=== PATIENT | female | born 1965 ===

== ENCOUNTER 2017-03-15 15:34 | Inpatient (IN) ==
[2017-03-15] MEDS ORDERED: SODIUM CHLORIDE 0.9% 1,000 ML IV STA (16:29)
--- NOTE | 2017-03-15 16:39 | Emergency Department Note ---
Trini Lima Gwan, am scribing for, and in the presence of, Ji Mcmillan MD 16:33 . Deyanira Lima James D, MD, personally performed the services described in this documentation, ascribed by Tim Feliz in my presence, and it is both accurate and complete [id number] . Arrival - Arrival Chief Complaint: Nausea/Vomiting/Diarrhea Stated Complaint: N/V/D ED Nursing Triage Note: Brought in by EMS c/o N/V/D-onset last night. Patient was transferred for [facility] ER for further evaluation of elevated creatinine and abnormal ABG's. Mode of Arrival: Stretcher Limitations: No Limitations Source: Patient, Old Records Reviewed, RN Notes Reviewed - History of Present Illness HPI Narrative: Patient is a 51 y/o female, with a hx of HTN and NIDDM, who presents to the ED via EMS from [facility] ER for further evaluation of elevated creatinine and abnormal ABG's. Patient presented to [facility] today due to N/V/D and upon further review, pt was promoted to report to ED for further evaluation. She said that her BM and vomit have been watery in consistency and that the onset of her sxs were yesterday afternoon. Patient stated that she has a PMHx of Chloecystectomy, and that she had Left Nephrectomy due to CA on 12/24/[address] Encinas. Transfer records report that pt's Creatinine was 5.0 in 12/22 and is 7.4 today. She denies any dysuria, blood in stool or any SHx of ETOH/smoking. Onset (ago): hour(s) Consistency: constant Severity: moderate Quality: aching Date of Last Menstrual Period: hysterectomy Allergies/Adverse Reactions: Allergies Allergy/AdvReac Type Severity Reaction Status Date / Time No Known Allergies Allergy Verified 11/21/16 15:38 Home Medications: Home Medications Medication Instructions Recorded Confirmed Type Aspirin [Ecotrin] 81 mg PO DAILY 11/23/16 03/15/17 History Chlorthalidone 25 mg PO QAM 11/23/16 03/15/17 History Hydroxychloroquine [Plaquenil] 400 mg PO DAILY 11/23/16 03/15/17 History Lisinopril 20 mg PO DAILY 11/23/16 03/15/17 History Metoprolol Succinate Xl [Toprol Xl] 50 mg PO BEDTIME 11/23/16 03/15/17 History Insulin Detemir [Levemir] 20 unit SUBCUT QAM 12/27/16 03/15/17 History Multivitamin [Multivitamins] 1 each PO DAILY 03/15/17 03/15/17 History Review of System - Review of System 12 point system: reviewed and no additional remarkable complaints except as stated - Review of System Constitutional: Absent: chills, fever Eyes: Absent: discharge, pain Head/Ears/Nose/Throat: Absent: earache Respiratory: Absent: cough Cardiovascular: Absent: chest pain, palpitations Gastrointestinal: Present: as per HPI, abdominal pain, nausea, vomiting, diarrhea Musculoskeletal: Absent: arm pain, back pain, lower back pain, leg pain, neck pain Skin: Absent: rash, lesions Neurological: Absent: headache, weakness Psychiatric: Absent: anxiety, depression Medical,Surgical,& Family Hx - Medical History Cardio: History of: Hypertension Endocrine: History of: Diabetes Mellitus (IDDM) Renal: History of: Renal Problems (TUMOR KIDNEY OR POSSIBLE CA) Comment Only: Renal (Kidney) Cancer (TUMORLEFT KIDNEY) Gastrointestinal: Comment Only: GI Problems (GALLSTONE) Musculoskeletal: History of: Musculoskeletal Problems (ARTHRITIS) Other: Comment Only: Miscellaneous Medical Problems (HAD TO WAIT ON DR FREY ORDERS) - Surgical History Thoracic Surgeries: Surgical HX of;: Nephrectomy (L PARTIAL) Abdominal Surgeries: Surgical HX of: Cholecystectomy Reproductive Surgeries: Surgical HX of;: Section (X2), Hysterectomy - Family History Family History: Reports;: Family Diabetes (SISTER PARENTS), Family Hypertension (PARENTS) - Social History Smoking Status: Never smoker Frequency of Alcohol Use: None Type of Drug Use: None Exam Physical Examination: GENERAL: This is a well-nourished, well-developed [place] female in no apparent distress. VITAL SIGNS: HEENT: Head is normocephalic and atraumatic. Pupils are equally round and reactive to light. Extraocular movement are intact. Oropharynx is benign with dry mucous membranes. NECK: Neck is soft and supple without tenderness. There are no masses. There is no lymphadenopathy. LUNGS: Lungs are clear to auscultation bilaterally. Chest rises symmetrically. There is no chest wall tenderness. CV: Heart is regular rate and rhythm without murmurs, rubs, or gallops. ABDOMEN: Abdomen is soft, non-tender to palpation. There are no abnormal masses palpated. There is no organomegaly. Bowel sounds are present and active. SKIN: Skin is warm and dry. No rash. EXTREMITIES: Patient has full range of motion without tenderness. There is no pedal edema. NEUROLOGIC: Awake, alert, and oriented x4. Cranial nerves II through XII are grossly intact. There are no motorsensory deficits. PSYCHIATRIC: Normal affect. Normal mood. Vital Signs: Vital Signs Temperature 97.5 F L 03/15/17 15:41 Pulse Rate 74 03/15/17 15:41 Respiratory Rate 18 03/15/17 15:41 Blood Pressure 154/93 03/15/17 15:41 O2 Sat by Pulse Oximetry 100 03/15/17 15:41 Course Course Narrative: Patient was given a liter of normal saline IV in the emergency department. - Consultations Consultation #1: Discussed with hospitalist. Patient will be admitted to their service. Time: 16:51 Results - Labs Lab Results: I have reviewed the patients labs Labs: Lab performed at [facility] reviewed by me: ABG: PH 7.28, PCO2 25, PO2 115, O2 sat 98.7% Chemistry: Sodium 139, potassium 4.8, chloride 107, CO2 16.4, BUN 76, creatinine 7.4, calcium 8.2, total protein 7.9, albumin 2.9, total bilirubin 0.6 , alk phos 203, SGOT 59, SGPT 45, glucose nonfasting 115 CBC: WBCs 4300, hemoglobin 9.6, hematocrit 28.5, platelet count 118,000 Disposition Clinical Impression: Nausea vomiting and diarrhea, Acute on chronic renal failure, Status post nephrectomy, Diabetes mellitus, Essential hypertension, Metabolic acidosis Case discussed with: patient Disposition: Still a Patient Condition: Stable
--- NOTE | 2017-03-15 16:49 | XRay Report ---
Exam: Chest 2 views Date: March 15, 2017 at 4:37 PM Comparison: Chest PA lateral August 13, 2008 Reason: Renal failure Findings: The cardiac silhouette is normal in size. No focal consolidation, pneumothorax or pleural effusion is identified. No acute osseous process is seen. Impression: No acute cardiopulmonary process is identified. PROCEDURE INTERPRETED AT [facility] DEPARTMENT OF RADIOLOGY Final Report Signed by: Dr. Ericka Youngblood
--- NOTE | 2017-03-15 16:52 | XRay Report ---
Referring Physician: Ji Mcmillan Exam: XR abdomen 2V Date: March 15, 2017 at 4:37 PM Reason: Generalized abdominal pain, nausea, vomiting, diarrhea Comparison: CT abdomen and pelvis November 15, 2016 Findings: There are surgical clips within the right upper quadrant, suggesting cholecystectomy. Surgical clips are also seen within the left abdomen and may be related to nephrectomy. There is no evidence of bowel obstruction or free air. There is degenerative change and mild scoliosis at the spine, and a remote fracture of the left lateral 10th rib. No acute osseous process is identified. Impression: No acute abdominal process is identified. PROCEDURE INTERPRETED AT [facility] DEPARTMENT OF RADIOLOGY Final Report Signed by: Dr. Ericka Younbglood
[2017-03-15 17:54] LABS: Osmolality,Calculated 304.1 MOS/KG (273-304); Potassium 4.5 MMOL/L (3.5-5.1)
--- NOTE | 2017-03-15 17:55 | Hospitalist History & Physical ---
Addendum entered and electronically signed by Gianfranco Montiel PA 03/15/17 18:29 : Preliminary lab work from [facility]: WBC 4.3 platelet 118 hemoglobin 9.6 hematocrit 28.5 calcium 8.2 creatinine 7.4 BUN 76 sodium 139 potassium 4.8 chloride 107 Original Note: <Gianfranco Montiel - Last Filed: 03/15/17 17:51> Assessment and Plan - Time spent with patient Time spent with patient: Greater than 30 minutes (1) Acute on chronic renal failure Status: Acute Assessment and plan: Creatinine in January was 5.0. Today creatinine is 7.0. Patient is status post left left nephrectomy [place] [address] Edward Veronica. She was seen by Dr. Mahad Montes in the hospital several months ago and has an appointment scheduled for April. Patient will be admitted to the CCU for monitoring and rehydration with normal saline. Current Visit: Yes (2) Essential hypertension Status: Acute Current Visit: Yes (3) Metabolic acidosis Status: Acute Assessment and plan: Records from [facility] shows pH 7.28 PCO2 25 HCO3 11.7. I am concerned the patient may go into diabetic ketoacidosis. Will monitor her in the CCU overnight. Current Visit: Yes (4) Nausea vomiting and diarrhea Status: Acute Current Visit: Yes (5) Status post nephrectomy Status: Acute Current Visit: Yes (6) Diabetes mellitus Status: Acute Assessment and plan: Serum glucose 108 Current Visit: Yes History of Present Illness Chief complaint: Nausea/vomiting/diarrhea History of present illness: Ms. Tello is a 51 year old [place] female with a past medical history significant for hypertension, diabetes, renal cell carcinoma with left total nephrectomy, cholecystitis with subsequent cholecystectomy who presents to the ED via EMS from [facility] for further evaluation of elevated creatinine and abnormal ABGs. The patient reports that she has been nauseous and vomiting incessantly since yesterday. She initially reported to the [facility] today for evaluation of nausea vomiting and diarrhea. She also reports that she has been having watery stool for the past 3 days. She denies knowledge of having any renal failure, however, she does admit to having an appointment with Dr. Montes, nephrology, in April. Further review of the patient's chart reveals a creatinine of 5 in January 2017. Today, her creatinine 7.0. On exam, the patient denies any pain and reports that the nausea vomiting has improved since receiving antiemetics from EMS. Patient does have a distinctive odor of ketones on her person which is suspicious for DKA. She patient will be admitted to the CCU hospital medicine service for further evaluation and treatment. The patient is a full code. Case has been discussed with Dr. Penny who will follow with an addendum. Home Medications Medication Instructions Recorded Confirmed Type Aspirin [Ecotrin] 81 mg PO DAILY 11/23/16 03/15/17 History Chlorthalidone 25 mg PO QAM 11/23/16 03/15/17 History Hydroxychloroquine [Plaquenil] 400 mg PO DAILY 11/23/16 03/15/17 History Lisinopril 20 mg PO DAILY 11/23/16 03/15/17 History Metoprolol Succinate Xl [Toprol Xl] 50 mg PO BEDTIME 11/23/16 03/15/17 History Insulin Detemir [Levemir] 20 unit SUBCUT QAM 12/27/16 03/15/17 History Multivitamin [Multivitamins] 1 each PO DAILY 03/15/17 03/15/17 History Allergies Allergy/AdvReac Type Severity Reaction Status Date / Time No Known Allergies Allergy Verified 11/21/16 15:38 Medical,Surgical,& Family Hx - Medical History Cardio: History of: Hypertension Endocrine: History of: Diabetes Mellitus (IDDM) Renal: History of: Renal Problems (TUMOR KIDNEY OR POSSIBLE CA) Comment Only: Renal (Kidney) Cancer (TUMORLEFT KIDNEY) Gastrointestinal: Comment Only: GI Problems (GALLSTONE) Musculoskeletal: History of: Musculoskeletal Problems (ARTHRITIS) Other: Comment Only: Miscellaneous Medical Problems (HAD TO WAIT ON DR FREY ORDERS) - Surgical History Thoracic Surgeries: Surgical HX of;: Nephrectomy (L PARTIAL) Abdominal Surgeries: Surgical HX of: Cholecystectomy Reproductive Surgeries: Surgical HX of;: Section (X2), Hysterectomy - Family History Family History: Reports;: Family Diabetes (SISTER PARENTS), Family Hypertension (PARENTS) - Social History Smoking Status: Former smoker Frequency of Alcohol Use: None Type of Drug Use: None Marital Status: Single Lives With:: Alone Functional capacity: independent ambulation - Constitutional Constitutional: Present: chills, headache(s), weakness - EENT Eyes: Absent: blurry vision, loss of vision Nose, mouth and throat: Absent: dysphagia, neck mass, sore throat - Cardiovascular Cardiovascular: Absent: chest pain at rest, dyspnea, edema, palpitations - Respiratory Respiratory: Absent: cough, dyspnea, wheezing - Gastrointestinal Gastrointestinal: Present: change in bowel habits, diarrhea, nausea, vomiting. Absent: abdominal pain - Genitourinary Genitourinary: Absent: difficulty urinating, dysuria, flank pain - Musculoskeletal Musculoskeletal: Absent: back pain, muscle cramps - Neurological Neurological: Absent: abnormal speech, dizziness, syncope - Psychiatric Psychiatric: Absent: anxiety, depression - Endocrine Endocrine: Present: cold intolerance. Absent: fatigue - Hematologic/Lymphatic Hematologic/Lymphatic: Absent: easy bleeding, easy bruising Exam - Constitutional Exam: General appearance:obese, no acute distress - Head Head exam: Present: normocephalic, atraumatic - Eye Eye exam: Present: EOMI. Absent: conjunctival injection, nystagmus Pupils: Present: SONIYA, normal accommodation - ENT ENT exam: Present: normal exam, normal external ear exam - Neck Neck exam: Present: normal inspection. Absent: lymphadenopathy, tenderness, thyromegaly - Respiratory Respiratory exam: Present: clear to auscultation bilaterally. Absent: rales, rhonchi, wheezes - Cardiovascular Cardiovascular exam: Present: regular rate and rhythm. Absent: carotid bruit, gallop, rubs - GI/Abdominal GI/Abdominal exam: Present: normal bowel sounds. Absent: ascites, distended, mass - Extremities Exam Extremities exam: Present: normal inspection, normal capillary refill. Absent: edema - Back Exam Back exam: Absent: CVA tenderness (L), CVA tenderness (R) - Neurological Exam Neurological exam: Present: alert, oriented X3 - Psychiatric Psychiatric exam: Present: normal affect, normal mood - Skin Skin exam: Present: normal color, warm, dry <White,Raegan R - Last Filed: 03/15/17 19:43> Assessment and Plan (1) Acute on chronic renal failure Status: Acute Assessment and plan: renal us, Consulted Dr. Montes, hydration with bicarb, UA pending, suarez Current Visit: Yes (2) IDDM (insulin dependent diabetes mellitus) Status: Acute Assessment and plan: cont lantus, ISC, ketones negative, hemoglobin A1c Current Visit: Yes (3) Status post nephrectomy Status: Acute Assessment and plan: left kidney removed due to renal cell carcinoma Current Visit: Yes (4) Essential hypertension Status: Acute Assessment and plan: hydralazine prn, coreg started, hold diuretics and lisinopril Current Visit: Yes (5) Metabolic acidosis Status: Acute Assessment and plan: cont IVF with bicarbonate. Serum ketones negative. Current Visit: Yes (6) Rheumatoid arthritis Status: Acute Assessment and plan: plaquenil cont for now Current Visit: Yes History of Present Illness History of present illness: Ms. Tello is a 51 year old female seen and examined. Slight smell of ketones, complains of some confusion at times. Has seen Dr. Montes in the past Medical,Surgical,& Family Hx - Medical History Musculoskeletal: History of: Musculoskeletal Problems (RA) Exam - Constitutional Vitals: Period Temp Pulse Resp BP Sys/Posada Pulse Ox Last 24 Hr 97.9 F 75-86 17-20 165-188/84-93 99-100 Results - Labs CBC & BMP: 03/15/17 17:29 Lab Results: I have reviewed the past 24 hour labs Labs: ABG pH 7.28, PCO2 25, PO2 115, bicarb 11. All labs from [place] calcium 8.2 creatinine 7.4 BUN 76 creatinine 7.4 sodium 139, potassium 4.8, AST 59, ALT 45, glucose 115, WBC 4.3, platelets 118, hemoglobin 9.6 - Diagnostic Findings Procedure: Chest x-ray: report reviewed by me (negative ), X-ray: report reviewed by me (abdomen xray negative )
[2017-03-15] MEDS ORDERED: ZALEPLON 5 MG CAPSULE PO PRN (18:14)
[2017-03-15] MEDS ORDERED: GLUCAGON 1 MG VIAL IM PRN (18:14)
[2017-03-15] MEDS ORDERED: DEXTROSE 50% 25 GM/50 ML VIAL IV PRN (18:14)
[2017-03-15] MEDS: SODIUM ACETATE 50 MEQ in SODIUM CHLORIDE 0.45% 1,000 ML IV SCH (19:33)
[2017-03-15 19:53] LABS: Thyroid Stimulating Hormone 1.87 uIU/ml (0.358-3.74)
[2017-03-15 19:54] LABS: B-Type Natriuretic Peptide 65 PG/ML (2-100)
[2017-03-15 20:24] LABS: Apearance,Urine CLEAR (Clear); Bilirubin,Urine Negative (Negative); Blood, Urine Negative (Negative); Glucose,Urine (UA) 50 mg/dL (Negative); Ketones,Urine Negative (Negative); Nitrite,Urine Negative (Negative); Protein,Urine 100 MG/DL; RBC,Urine 1 /HPF (0-4); Urine Color Straw (Yellow); Urine Specific Gravity 1.006 (1.001-1.035); Urine Urobilinogen < 2.0 EU/DL (0.2-1.0); WBC,Urine <1 /HPF (0-6)
[2017-03-15] MEDS: INSULIN LISPRO 100 UNIT/ML SUBCUT SCH (20:41)
[2017-03-15] MEDS: ENOXAPARIN 30 MG/0.3 ML SYRINGE SUBCUT SCH (20:48)
[2017-03-15] MEDS: hydrALAZINE 20 MG/1 ML VIAL IV PRN (20:50)
--- NOTE | 2017-03-15 22:43 | Ultrasound Report ---
Referring Physician: Raegan Penny Exam: US renal Bilateral Date: March 15, 2017 Reason: Hydronephrosis Comparison: Bilateral renal ultrasound November 18, 2016 Technique: Grayscale and color flow ultrasound images of the right kidney and left renal fossa were obtained. Ultrasound images were captured and stored. Findings: The right kidney measures 9.3 x 4.5 x 4.2 cm. No right hydronephrosis or suspicious right renal lesion is identified. The renal parenchyma echogenicity is unremarkable as visualized. The patient is status post left nephrectomy. No suspicious abnormality is identified at the left renal fossa. Impression: No acute renal process is identified. PROCEDURE INTERPRETED AT [facility] DEPARTMENT OF RADIOLOGY Final Report Signed by: Dr. Ericka Youngblood
[2017-03-16] MEDS: SODIUM ACETATE 50 MEQ in SODIUM CHLORIDE 0.45% 1,000 ML IV SCH (03:30)
[2017-03-16 05:31] LABS: Eosinophils # 0.4 10*3/uL (0.0-0.87); Eosinophils % 17.3 % (0.00-10.9); Immature Granulocytes % 0.4 %; Immature Granulocytes Absolute 0.01 #; Lymphocytes # 0.9 10*3/uL (1.4-4.0); Lymphocytes % 35.5 % (21.3-54.2); Mean Corpuscular HGB Conc 33.3 GM/DL (32-36); Mean Corpuscular Hemoglobin 31 PG (27-34); Mean Corpuscular Volume 93.8 FL (87-102); Mean Platelet Volume 10.3 FL (9.6-12.0); Monocytes # 0.3 10*3/uL (0.11-0.8); Monocytes % 12.5 % (1.7-12.7); Neutrophils # 0.9 10*3/uL (1.4-7.4); Neutrophils % 34.3 % (38.7-73.9); Platelet Count 80 T/CUMM (130-400); Red Blood Count 2.24 MC/CUMM (3.8-5.5); White Blood Count 2.5 T/CUMM (4-12)
[2017-03-16 06:03] LABS: Eosinophils 14 % (0-10); Hypochromasia 1+; Lymphocytes 30 % (20-55); Ovalocytes Slight; Platelet Estimate Decreased; Segmented Neutrophils 44 % (50-85); Total Cells Counted 100
[2017-03-16 06:09] LABS: Alanine Aminotransferase 41 U/L (13-56); Albumin 2.3 G/DL (3.4-5.0); Alkaline Phosphatase 168 U/L (45-117); Aspartate Amino Transferase 61 U/L (0-37); Bilirubin,Total < 0.39 MG/DL (0.2-1.0); Blood Urea Nitrogen 66 MG/DL (7-18); Calcium 7.6 MG/DL (8.5-10.1); Glucose 107 MG/DL (74-106); Sodium 143 MMOL/L (136-145); Total Protein 5.8 G/DL (6.4-8.3)
[2017-03-16] MEDS ORDERED: NOREPINEPHRINE 8 MG in SODIUM CHLORIDE 0.9% 242 ML IV SCH (06:30)
--- NOTE | 2017-03-16 07:52 | Hospitalist Progress Note ---
Assessment and Plan (1) Metabolic acidosis Status: Acute Assessment and plan: Continue bicarb drip. Increase bicarb 200 mEq/L. Continue same IV fluid rate of 125 cc/h. Nephrology consult pending. Current Visit: Yes (2) CKD (chronic kidney disease) stage 3, GFR 30-59 ml/min Status: Chronic Current Visit: No (3) Renal cell carcinoma of left kidney Status: Resolved Assessment and plan: Status post nephrectomy of the left kidney in December 2016 Current Visit: No (4) Nausea vomiting and diarrhea Status: Resolved Current Visit: Yes (5) Acute on chronic renal failure Status: Acute Assessment and plan: Nontraumatic acute kidney injury with chronic kidney disease stage III in a patient with a solitary kidney after left nephrectomy 3 months ago. Consult nephrology. 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 Current Visit: Yes (9) IDDM (insulin dependent diabetes mellitus) Status: Chronic Current Visit: Yes Hospitalist: Subjective Interval history: Patient seen and examined. History and physical reviewed. Nausea, vomiting and diarrhea have subsided. Stool studies are negative. Renal function remains compromised and elevated from baseline 2 months ago. The patient has one kidney as the left kidney was removed secondary to cancer in December 2016. She denies any complaints and is making good amounts of urine that is clear yellow in color. Vital signs are stable and she will be transferred to the floor. Nephrology consult pending. Exam - Constitutional Vitals: Period Temp Pulse Resp BP Sys/Posada Pulse Ox Last 24 Hr 97.4 F-99.5 F 71-90 13-26 129-188/69-106 98-100 Exam: Constitutional System: No distress. No tremulousness. Head: Normocephalic, atraumatic. Ears, Nose and Throat System: No pain or tenderness. No epistaxis or discharge Eyes System: Pupils equal, round, and reactive. Extraocular muscles intact. Neck: Supple, without adenopathy, No jugular venous distention. Respiratory System: Chest clear to auscultation. Cardiovascular System: Heart with regular rate and rhythm. No murmur. GI System: Abdomen soft, nontender. Normo active bowel sounds present. Musculoskeletal System: limbs with no pedal edema. Full distal pulses. Neurological System: No discernable sensory deficit. No aphasia Psychiatric System: Conversation is rational Results - Labs CBC & BMP: 03/16/17 04:48 03/16/17 04:48 Lab Results: I have reviewed the past 24 hour labs - Diagnostic Findings Procedure: Chest x-ray: report reviewed by me, KUB x-ray: report reviewed by me
[2017-03-16] MEDS: INSULIN LISPRO 100 UNIT/ML SUBCUT SCH ×4 (07:56→21:01)
[2017-03-16] MEDS: ACETAMINOPHEN 325 MG TABLET PO PRN (08:00)
[2017-03-16] MEDS: INSULIN GLARGINE 100 UNIT/ML SUBCUT SCH (09:30)
[2017-03-16] MEDS: HYDROXYCHLOROQUINE 200 MG TABLET PO SCH (09:32)
[2017-03-16] MEDS: PANTOPRAZOLE 40 MG TABLET PO SCH (09:32)
[2017-03-16] MEDS: MULTIVITAMIN (CENTRUM) TABLET PO SCH (09:33)
[2017-03-16] MEDS: ASPIRIN EC 81 MG TABLET PO SCH (09:33)
[2017-03-16] MEDS: SODIUM ACETATE 100 MEQ in SODIUM CHLORIDE 0.45% 1,000 ML IV SCH ×2 (09:36→21:04)
--- NOTE | 2017-03-16 09:58 | Physician Query Form ---
CLICK EDIT DOCUMENT TO SELECT QUERY ANSWER --> OK --> SIGN Laila Thomas RN Clinical Nutrition Counselor W) [phone] (f) [phone] [email or web address] PROVIDERS: Make your selection(s) from the choices in EACH section by typing an "x" and enter comments in the comment section. Please use your independent medical judgment in providing your response. This request does not imply that any particular answer is desired or expected. CLINICAL INDICATORS: (Providers should not edit this section) Based on lab results of WBC=2.5, RBC=2.24, PLT=80. Based on the above, could you clarify the appropriate diagnosis, if significant , that supports the above abnormalities and additional evaluation, monitoring, and/or treatment rendered: (X ) Pt. has pancytopenia ( ) Pt. does not have pancytopenia ( ) Other, please specify: ( ) Clinically unable to determine COMMENTS: Use of terms such as suspected, likely, or probable (associated with a specific diagnosis that is being evaluated, monitored, or treated as if it exists) are acceptable and can be restated in the discharge summary if not ruled out. MTDD
[2017-03-16] MEDS ORDERED: SODIUM CHLORIDE 0.9% 250 ML IV PRN (10:28)
--- NOTE | 2017-03-16 14:22 | Nephrology Consult Note ---
History of Present Illness Chief complaint: Acute on Chronic Kidney Disease History of present illness: Ms. Tello is a 51 year old female status post left nephrectomy for renal cell carcinoma approximately 2 months ago. Creatinine at that time was around 5 and she came in after 48 hours of nausea vomiting diarrhea with a creatinine of 7 and a mild metabolic acidosis with a measured bicarb of 14. She says that she is 8 nothing unusual and that family members have not been sick. Her chest is clear and her heart without rub or gallop no peripheral edema is noted. She is receiving IV fluids with sodium acetate to correct her acidosis and is receiving 2 units packed red cells today because of a hematocrit of 21. The anemia is likely due to the anemia of chronic renal impairment. Home Medications Medication Instructions Recorded Confirmed Type Aspirin [Ecotrin] 81 mg PO DAILY 11/23/16 03/15/17 History Chlorthalidone 25 mg PO QAM 11/23/16 03/15/17 History Hydroxychloroquine [Plaquenil] 400 mg PO DAILY 11/23/16 03/15/17 History Lisinopril 20 mg PO DAILY 11/23/16 03/15/17 History Metoprolol Succinate Xl [Toprol Xl] 50 mg PO BEDTIME 11/23/16 03/15/17 History Insulin Detemir [Levemir] 20 unit SUBCUT QA 12/27/16 03/15/17 History Multivitamin [Multivitamins] 1 each PO DAILY 03/15/17 03/15/17 History Allergies Allergy/AdvReac Type Severity Reaction Status Date / Time No Known Allergies Allergy Verified 11/21/16 15:38 Medical,Surgical,& Family Hx - Medical History Cardio: History of: Hypertension Endocrine: History of: Diabetes Mellitus (IDDM) Renal: History of: Renal Problems (TUMOR KIDNEY OR POSSIBLE CA) Comment Only: Renal (Kidney) Cancer (TUMORLEFT KIDNEY) Gastrointestinal: Comment Only: GI Problems (GALLSTONE) Musculoskeletal: History of: Musculoskeletal Problems (RA) Other: Comment Only: Miscellaneous Medical Problems (HAD TO WAIT ON DR FREY ORDERS) - Surgical History Thoracic Surgeries: Surgical HX of;: Nephrectomy (L PARTIAL) Abdominal Surgeries: Surgical HX of: Cholecystectomy Reproductive Surgeries: Surgical HX of;: Section (X2), Hysterectomy - Family History Family History: Reports;: Family Diabetes (SISTER PARENTS), Family Hypertension (PARENTS) - Social History Smoking Status: Former smoker Frequency of Alcohol Use: None Type of Drug Use: None Review of Systems 12 point system: reviewed and no additional remarkable complaints except as stated Exam - Vital Signs Vital signs: Period Temp Pulse Resp BP Sys/Posada Pulse Ox Last 24 Hr 96.4 F-99.5 F 71-90 13-26 129-188/69-106 96-100 - General Appearance General appearance: well-developed, well-nourished, appears started age EENT: ATNC Neck: no JVD, no thyromegaly, no carotid bruit, supple Respiratory: no kyphosis, no scoliosis Cardiology: no murmurs, no rub, no gallops, no edema, regular rate, regular rhythm, normal S1, normal S2 Gastrointestinal: normoactive bowel sounds, no tenderness, no guarding, no organomegaly Integumentary: no rash, warm and dry Neurologic: no focal deficit, no asterixis, alert and oriented x3, reflexes 2+ and symmetric, gait normal, strength 5/5 Musculoskeletal: no deformities, no erythema, no cyanosis, no clubbing Psychiatric: mood/affect appropriate, cooperative Results - Labs CBC & BMP: 03/16/17 04:48 03/16/17 04:48 Assessment and Plan - Time spent with patient Time spent with patient: Greater than 30 minutes (1) Acute on chronic renal failure Status: Acute Assessment and plan: Fluids as you're doing. Correct acidosis Current Visit: Yes Qualifiers: Chronic kidney disease stage: stage 3 (moderate) (2) Status post nephrectomy Status: Chronic Current Visit: Yes (3) Metabolic acidosis Status: Acute Current Visit: Yes (4) Anemia Status: Acute Assessment and plan: due to ckd Current Visit: Yes Specialty Discharge - Follow Up or Referrals - Speciality Discharge Instructions Nephrology Instructions: Follow renal function as she is rehydrated and transfused. She should follow back down to baseline which is about 5-1/2.
[2017-03-16 14:48] LABS: % Iron Saturation 50.7 % (18-50)
--- NOTE | 2017-03-16 16:08 | Sleep Medicine Consult ---
Assessment and Plan (1) Unspecified sleep apnea Status: Acute Assessment and plan: This patient does have symptoms of snoring and significant comorbidities that could be associated with untreated sleep apnea. She had a negative evaluation in 2013 but has gained weight. We will see if we can start with home sleep apnea testing tonight. If she is discharged before this can be done, I can follow-up with her in the [facility] sleep clinic. Current Visit: Yes (2) Diabetes mellitus Status: Chronic Assessment and plan: The prevalence rate for obstructive sleep apnea in patients with type 2 diabetes can be as high as 86%. Those patients with moderate to severe obstructive sleep apnea are at a greater risk for diabetic nephropathy and neuropathy. Compliance with CPAP therapy for these patients can lead to improvement in glycemic control and improvement in insulin sensitivity. Current Visit: Yes Qualifiers: Diabetes mellitus type: type 2 Diabetes mellitus complication detail: with chronic kidney disease Diabetes mellitus residential insulin use: with residential use Chronic kidney disease stage: stage 3 (moderate) (3) Essential hypertension Status: Chronic Assessment and plan: The prevalence rate for obstructive sleep apnea patients with hypertension is 35 %. That rate can be as high as 80% in patients who require 4 or more medications for blood pressure control. Current Visit: Yes History of Present Illness Chief complaint: sleep apnea History of present illness: Ms. Tello is a 51 year old female known to me from previous sleep evaluation. She had sleep study done in February 2014 and did have some REM related sleep apnea but had an overall normal apnea-hypopnea index. She did have an Sanford sleepiness score 15 at that time and subsequent to that has been found to have renal cell carcinoma and had nephrectomy. She is admitted now with metabolic acidosis and chronic kidney disease with nausea and vomiting. Sleep medicine was consulted for reevaluation. She has had some symptoms of fatigue. She does continue to snore. Her BMI at the time of her evaluation was 37.9 in February 2016 and it is now up to 40. Home Medications Medication Instructions Recorded Confirmed Type Aspirin [Ecotrin] 81 mg PO DAILY 11/23/16 03/15/17 History Chlorthalidone 25 mg PO QAM 11/23/16 03/15/17 History Hydroxychloroquine [Plaquenil] 400 mg PO DAILY 11/23/16 03/15/17 History Lisinopril 20 mg PO DAILY 01/18/17 05/10/17 History Metoprolol Succinate Xl [Toprol Xl] 50 mg PO BEDTIME 11/23/16 03/15/17 History Insulin Detemir [Levemir] 20 unit SUBCUT QAM 12/27/16 03/15/17 History Multivitamin [Multivitamins] 1 each PO DAILY 03/15/17 03/15/17 History Allergies Allergy/AdvReac Type Severity Reaction Status Date / Time No Known Allergies Allergy Verified 11/21/16 15:38 Review of systems: Otherwise unremarkable from sleep standpoint. Exam (Pulmonay) H&P - Constitutional Vitals: Period Temp Pulse Resp BP Sys/Posada Pulse Ox Last 24 Hr 96.2 F-99.5 F 71-90 13-26 129-190/69-106 96-100 Exam: She is alert and responsive in no acute distress. Pupils equal round reactive to light and accommodation. Extraocular movements intact. Oropharynx with a class III Mallampati exam. Neck is supple without adenopathy or thyromegaly. No supraclavicular adenopathy is noted. Chest with symmetrical breath sounds without focal wheeze, rhonchi, or rales. Cardiac exam reveals a regular rhythm without murmur or gallop. Abdomen soft nontender without palpable hepatosplenomegaly or mass. Extremities are without clubbing, cyanosis, or edema. Neurologically, she is grossly intact. She moves all extremities with good strength. Medical,Surgical,& Family Hx - Medical History Cardio: History of: Hypertension Endocrine: History of: Diabetes Mellitus (IDDM) Renal: History of: Renal Problems (TUMOR KIDNEY OR POSSIBLE CA) Comment Only: Renal (Kidney) Cancer (TUMORLEFT KIDNEY) Gastrointestinal: Comment Only: GI Problems (GALLSTONE) Musculoskeletal: History of: Musculoskeletal Problems (RA) Other: Comment Only: Miscellaneous Medical Problems (HAD TO WAIT ON DR FREY ORDERS) - Surgical History Thoracic Surgeries: Surgical HX of;: Nephrectomy (L PARTIAL) Abdominal Surgeries: Surgical HX of: Cholecystectomy Reproductive Surgeries: Surgical HX of;: Section (X2), Hysterectomy - Family History Family History: Reports;: Family Diabetes (SISTER PARENTS), Family Hypertension (PARENTS) - Social History Smoking Status: Former smoker Frequency of Alcohol Use: None Type of Drug Use: None Results - Labs CBC & BMP: 03/16/17 04:48 05/11/17 04:48 Lab Results: I have reviewed the past 24 hour labs
[2017-03-16] MEDS: hydrALAZINE 20 MG/1 ML VIAL IV PRN (16:28)
[2017-03-16] MEDS: ENOXAPARIN 30 MG/0.3 ML SYRINGE SUBCUT SCH (21:03)
[2017-03-17] MEDS: ACETAMINOPHEN 325 MG TABLET PO PRN (00:59)
[2017-03-17 05:13] LABS: Basophils % 0.4 % (0.0-0.8); Eosinophils # 0.2 10*3/uL (0.0-0.87); Eosinophils % 4.2 % (0.00-10.9); Hematocrit 26.8 VOL% (35.7-47.0); Hemoglobin 9.3 GM/DL (12.0-16.0); Immature Granulocytes % 0.4 %; Immature Granulocytes Absolute 0.02 #; Lymphocytes # 1.2 10*3/uL (1.4-4.0); Lymphocytes % 21.7 % (21.3-54.2); Mean Corpuscular HGB Conc 34.7 GM/DL (32-36); Mean Corpuscular Hemoglobin 31 PG (27-34); Mean Corpuscular Volume 89.6 FL (87-102); Mean Platelet Volume 10.2 FL (9.6-12.0); Monocytes # 0.6 10*3/uL (0.11-0.8); Monocytes % 10.5 % (1.7-12.7); Neutrophils # 3.4 10*3/uL (1.4-7.4); Neutrophils % 62.8 % (38.7-73.9); Platelet Count 75 T/CUMM (130-400); Red Blood Count 2.99 MC/CUMM (3.8-5.5); Red Cell Distribution Width 14.9 % (9.3-17.3); White Blood Count 5.5 T/CUMM (4-12)
[2017-03-17 05:42] LABS: Band Neutrophils 1 % (0-10); Eosinophils 3 % (0-10); Lymphocytes 24 % (20-55); Segmented Neutrophils 68 % (50-85); Total Cells Counted 100
[2017-03-17 05:43] LABS: Hypochromasia Slight; Platelet Estimate Decreased
[2017-03-17 05:47] LABS: Albumin 2.1 G/DL (3.4-5.0); Bilirubin,Total 0.5 MG/DL (0.2-1.0); Calcium 7.4 MG/DL (8.5-10.1); Potassium 3.9 MMOL/L (3.5-5.1); Total Protein 5.5 G/DL (6.4-8.3)
[2017-03-17] MEDS: INSULIN LISPRO 100 UNIT/ML SUBCUT SCH ×4 (07:30→20:42)
[2017-03-17] MEDS: INSULIN GLARGINE 100 UNIT/ML SUBCUT SCH (08:02)
[2017-03-17] MEDS: SODIUM ACETATE 100 MEQ in SODIUM CHLORIDE 0.45% 1,000 ML IV SCH ×2 (11:02→17:20)
[2017-03-17] MEDS: HYDROXYCHLOROQUINE 200 MG TABLET PO SCH (11:17)
[2017-03-17] MEDS: MULTIVITAMIN (CENTRUM) TABLET PO SCH (11:17)
[2017-03-17] MEDS: PANTOPRAZOLE 40 MG TABLET PO SCH (11:17)
[2017-03-17] MEDS: ASPIRIN EC 81 MG TABLET PO SCH (11:17)
--- NOTE | 2017-03-17 12:15 | Sleep Medicine Progress Note ---
Assessment and Plan (1) Unspecified sleep apnea Status: Acute Assessment and plan: We will set her up for outpatient sleep study after discharge at [facility] sleep center with follow-up in the sleep clinic there. Thank you for this consult. Current Visit: Yes (2) Diabetes mellitus Status: Chronic Current Visit: Yes Qualifiers: Diabetes mellitus type: type 2 Diabetes mellitus complication detail: with chronic kidney disease Diabetes mellitus watermaster insulin use: with intermediate use Chronic kidney disease stage: stage 3 (moderate) (3) Essential hypertension Status: Chronic Current Visit: Yes Sleep Medicine Subjective Interval history: Patient doing well but complains of continuous headache. She rested well last night. We were unable to do HST on her. She resides in the [facility] area and we will set her up for outpatient sleep evaluation at [facility]. Exam (Progress Note) - Constitutional Vitals: Period Temp Pulse Resp BP Sys/Posada Pulse Ox Last 24 Hr 96.2 F-99.7 F 77-94 16-84 148-194/68-89 96-98 Exam: She is alert and responsive in no distress. Chest with good air movement and no focal wheeze or rhonchi. Cardiac exam reveals a regular rhythm without murmur or gallop. Abdomen soft nontender extremities without edema. Neurologically, she is grossly intact. Results - Labs CBC & BMP: 03/17/17 04:30 03/17/17 04:30 Lab Results: I have reviewed the past 24 hour labs
--- NOTE | 2017-03-17 12:28 | CT Report ---
CT head/brain wo con Indication: Headache Comparison: None Technique: Multiple axial tomographic images of the brain were obtained without the use of intravenous contrast. Findings: Midline structures are nondisplaced. There is no acute intracranial hemorrhage or evidence of hydrocephalus. Mild mucosal thickening within the paranasal sinuses. Mastoid air cells are clear. IMPRESSION: No acute intracranial abnormality demonstrated. The CT exam was performed using one or more of the following dose reduction techniques: Automated exposure control, adjustment of the mA and/or kV according to patient size, or use of iterative reconstruction technique. PROCEDURE INTERPRETED AT [facility] Final Report Signed by: Dr Nacho Crenshaw
--- NOTE | 2017-03-17 14:26 | Hospitalist Progress Note ---
Hospitalist: Subjective Interval history: Tolerating oral intake. She received 2 units of packed red blood cells. Patient reports a headache since December since her surgery. She does report diarrhea and stool studies are negative. She has had a cholecystectomy in the past. Patient denies any lightheadedness or dizziness, chest pain or palpitations. No shortness of breath. No fever. Exam - Constitutional Vitals: Period Temp Pulse Resp BP Sys/Posada Pulse Ox Last 24 Hr 96.2 F-99.7 F 79-94 16-84 148-194/68-89 96-98 Exam: General : awake and alert and oriented 3 sitting in the chair in no acute distress. HEENT : anicteric sclera, pale conjunctivae, moist mucous membranes. Neck: supple, full range of motion, no lymphadenopathy or thyromegaly appreciated. Cardiovascular: Regular rate and rhythm, normal S1-S2 no obvious murmurs rubs or gallops. Lungs: Clear to auscultation bilaterally with good aeration nonlabored breathing noted. Abdomen: Soft, nontender, nondistended, positive bowel sounds. Obese abdomen so difficult to assess for hepatosplenomegaly or masses Extremity: Warm and well-perfused no clubbing cyanosis or edema. Results - Labs CBC & BMP: 03/17/17 04:30 03/17/17 04:30 - Impressions (1) Acute renal failure on CKD (chronic kidney disease) stage 3, GFR 30-59 ml/ min with Metabolic acidosis Status: Acute Assessment and plan: - Continue bicarb drip. Nephrology following. Serial RFP. - Nephrotoxic medications being held at this time secondary to acute on chronic kidney disease with acute kidney injury. Current Visit: Yes (2) Renal cell carcinoma of left kidney after left nephrectomy 3 months ago Status: Resolved Assessment and plan: - Status post left nephrectomy in December 2016 Current Visit: No (3) Nausea vomiting and diarrhea due to acute gastroenteritis Status: acute Current Visit: Yes - nausea and vomiting improved. Diarrhea persists. Add questran given history of CCY (4) Diabetes mellitus Status: Chronic Current Visit: Yes Qualifiers: Diabetes mellitus type: type 2 Diabetes mellitus complication detail: with chronic kidney disease Diabetes mellitus assisted insulin use: with assisted use Chronic kidney disease stage: stage 3 (moderate) - Cont accuchecks ac,hs. I.S.S. Check HgbA1c. (5) Essential hypertension Status: Chronic Assessment and plan: Current Visit: Yes (6) progressive Anemia of chronic disease: Likely secondary to chronic kidney disease and in a patient with pancytopenia - FOBT pending and s/p 2U PRBCs 7. Hgb now 9. (7) Acute gastroenteritis: Pt with nausea and diarrhea and headache. may be related to Plaquenil. Will hold for now. 8) Headache- neck tender to touch. OT to eval and treat. Tylenol for now. Check CT head. Hold Plaquenil as well. DVT prophylaxis- SCDs. Further plans to follow as more info is available.
[2017-03-17] MEDS: ONDANSETRON 4 MG/2 ML VIAL IV PRN ×2 (17:17→23:27)
[2017-03-17] MEDS: ENOXAPARIN 30 MG/0.3 ML SYRINGE SUBCUT SCH (20:42)
[2017-03-17] MEDS: CHOLESTYRAMINE/ASPARTAME 4 GM PACK PO SCH (20:42)
[2017-03-18] MEDS: SODIUM ACETATE 100 MEQ in SODIUM CHLORIDE 0.45% 1,000 ML IV SCH ×3 (00:52→17:13)
[2017-03-18 05:26] LABS: Basophils % 0.4 % (0.0-0.8); Eosinophils # 0.4 10*3/uL (0.0-0.87); Eosinophils % 9.3 % (0.00-10.9); Hematocrit 26.6 VOL% (35.7-47.0); Hemoglobin 9.4 GM/DL (12.0-16.0); Immature Granulocytes % 0.4 %; Immature Granulocytes Absolute 0.02 #; Lymphocytes # 1.9 10*3/uL (1.4-4.0); Lymphocytes % 40.9 % (21.3-54.2); Mean Corpuscular HGB Conc 35.3 GM/DL (32-36); Mean Corpuscular Hemoglobin 31 PG (27-34); Mean Corpuscular Volume 87.8 FL (87-102); Mean Platelet Volume 10.1 FL (9.6-12.0); Monocytes # 0.4 10*3/uL (0.11-0.8); Monocytes % 8.2 % (1.7-12.7); Neutrophils # 1.9 10*3/uL (1.4-7.4); Neutrophils % 40.8 % (38.7-73.9); Platelet Count 75 T/CUMM (130-400); Red Blood Count 3.03 MC/CUMM (3.8-5.5); Red Cell Distribution Width 14.9 % (9.3-17.3); White Blood Count 4.7 T/CUMM (4-12)
[2017-03-18 05:51] LABS: Albumin 2.2 G/DL (3.4-5.0); Bilirubin,Total 1.2 MG/DL (0.2-1.0); Calcium 7.4 MG/DL (8.5-10.1); Osmolality,Calculated 294.1 MOS/KG (273-304); Potassium 3.9 MMOL/L (3.5-5.1); Total Protein 5.6 G/DL (6.4-8.3)
[2017-03-18] MEDS: ACETAMINOPHEN 325 MG TABLET PO PRN ×2 (05:57→17:13)
[2017-03-18 08:04] LABS: Hypochromasia 1+
[2017-03-18] MEDS: INSULIN LISPRO 100 UNIT/ML SUBCUT SCH ×4 (08:40→21:18)
[2017-03-18] MEDS: hydrALAZINE 20 MG/1 ML VIAL IV PRN (09:04)
[2017-03-18] MEDS: MULTIVITAMIN (CENTRUM) TABLET PO SCH (09:04)
[2017-03-18] MEDS: PANTOPRAZOLE 40 MG TABLET PO SCH (09:04)
[2017-03-18] MEDS: ASPIRIN EC 81 MG TABLET PO SCH (09:04)
[2017-03-18] MEDS: INSULIN GLARGINE 100 UNIT/ML SUBCUT SCH (09:05)
[2017-03-18] MEDS: CHOLESTYRAMINE/ASPARTAME 4 GM PACK PO SCH ×2 (09:05→21:29)
--- NOTE | 2017-03-18 10:25 | Hospitalist Progress Note ---
Hospitalist: Subjective Interval history: Pt had elevated BP this am. No fever. No cp or SOB. No nausea or vomiting. diarrhea improving. Exam - Constitutional Vitals: Period Temp Pulse Resp BP Sys/Posada Pulse Ox Last 24 Hr 97.1 F-99.3 F 53-77 16-18 153-201/82-87 96-98 Exam: General : awake and alert and oriented 3 sitting in the chair in no acute distress. HEENT : anicteric sclera, pale conjunctivae, moist mucous membranes. Neck: No JVD Cardiovascular: Regular rate and rhythm, normal S1-S2 no obvious murmurs rubs or gallops. Lungs: Clear to auscultation bilaterally with good aeration nonlabored breathing noted. Abdomen: Soft, nontender, nondistended, positive bowel sounds. Obese abdomen so difficult to assess for hepatosplenomegaly or masses Extremity: Warm and well-perfused no clubbing cyanosis or edema. Results - Labs CBC & BMP: 03/18/17 04:41 03/18/17 04:41 - Impressions (1) Acute renal failure on CKD (chronic kidney disease) stage 3, GFR 30-59 ml/ min with Metabolic acidosis-improving (7 to 5.8) Status: Acute Assessment and plan: - Continue bicarb drip. Nephrology following. Serial RFP. - Nephrotoxic medications being held at this time secondary to acute on chronic kidney disease with acute kidney injury. Current Visit: Yes (2) Renal cell carcinoma of left kidney after left nephrectomy 3 months ago Status: Resolved Assessment and plan: - Status post left nephrectomy in December 2016 Current Visit: No (3) Nausea vomiting and diarrhea due to acute gastroenteritis Status: acute Current Visit: Yes - nausea and vomiting improved. Diarrhea improving. Cont questran given history of CCY - Stool culture, FOBT, C diff were negative (4) Diabetes mellitus controlled HgbA1c 5.9 Status: Chronic Current Visit: Yes Qualifiers: Diabetes mellitus type: type 2 Diabetes mellitus complication detail: with chronic kidney disease Diabetes mellitus shelter insulin use: with recording studio internship use Chronic kidney disease stage: stage 3 (moderate) - Cont accuchecks ac,hs. I.S.S. (5) Essential hypertension- uncontrolled/ Accelerated Status: Chronic Assessment and plan: Current Visit: Yes - start Nifedipine. Hydralazine is ordered prn IV. D/W nurse. (6) progressive Anemia of chronic disease: Likely secondary to chronic kidney disease and in a patient with pancytopenia - FOBT negative and s/p 2U PRBCs for Hgb7. Hgb now 9. (7) Acute gastroenteritis: Pt with nausea and diarrhea and headache. may be related to Plaquenil. Will hold for now. 8) Headache- much improved. Cont OT. Tylenol as needed. CT head negative for acute pathology. Hold Plaquenil as well and get sleep study outpt DVT prophylaxis- Lovenox renally dosed. I will be away several days. One of my associates will follow in my absence.
[2017-03-18] MEDS: ONDANSETRON 4 MG/2 ML VIAL IV PRN (14:37)
--- NOTE | 2017-03-18 17:36 | Nephrology Progress Note ---
Nephrology - PN: Subj Interval history: Patient is sitting up in chair resting comfortably. She states she does have a headache. Blood pressure has been elevated today. No shortness of breath or chest pain. Exam (PN)-Nephrology - Vital Signs Vital signs: Period Temp Pulse Resp BP Sys/Posada Pulse Ox Last 24 Hr 97.1 F-99.1 F 66-77 16-18 153-201/82-87 97-98 - General Appearance General appearance: well-developed, well-nourished EENT: ATNC Neck: supple Respiratory: clear Cardiology: no edema, regular rate, regular rhythm Gastrointestinal: normoactive bowel sounds, no tenderness, no guarding Neurologic: alert and oriented x3 Musculoskeletal: no clubbing Psychiatric: mood/affect appropriate - Lab 03/18/17 04:41 03/18/17 04:41 Most recent lab results Calcium 7.4 MG/DL (8.5-10.1) L 03/18/17 04:41 Magnesium 2.0 MG/DL (1.8-2.4) 03/15/17 19:08 Assessment and Plan (1) CKD (chronic kidney disease) stage 3, GFR 30-59 ml/min Status: Chronic Current Visit: No (2) Status post nephrectomy Status: Chronic Current Visit: Yes (3) Diabetes mellitus Status: Chronic Current Visit: Yes Qualifiers: Diabetes mellitus type: type 2 Diabetes mellitus complication detail: with chronic kidney disease Diabetes mellitus penitentiary insulin use: with watermaster use Chronic kidney disease stage: stage 3 (moderate) (4) Essential hypertension Status: Chronic Current Visit: Yes
[2017-03-18] MEDS: ENOXAPARIN 30 MG/0.3 ML SYRINGE SUBCUT SCH (21:30)
[2017-03-18] MEDS: CARVEDILOL 3.125 MG TABLET PO SCH (21:30)
[2017-03-19] MEDS: SODIUM ACETATE 100 MEQ in SODIUM CHLORIDE 0.45% 1,000 ML IV SCH (01:17)
[2017-03-19] MEDS: INSULIN LISPRO 100 UNIT/ML SUBCUT SCH ×4 (07:54→21:33)
[2017-03-19] MEDS: CHOLESTYRAMINE/ASPARTAME 4 GM PACK PO SCH (09:16)
[2017-03-19] MEDS: MULTIVITAMIN (CENTRUM) TABLET PO SCH (09:17)
[2017-03-19] MEDS: PANTOPRAZOLE 40 MG TABLET PO SCH (09:17)
[2017-03-19] MEDS: CARVEDILOL 3.125 MG TABLET PO SCH (09:17)
[2017-03-19] MEDS: ASPIRIN EC 81 MG TABLET PO SCH (09:17)
[2017-03-19] MEDS: ONDANSETRON 4 MG/2 ML VIAL IV PRN ×2 (09:21→16:43)
[2017-03-19] MEDS: INSULIN GLARGINE 100 UNIT/ML SUBCUT SCH (10:22)
--- NOTE | 2017-03-19 12:38 | Hospitalist Progress Note ---
Assessment and Plan (1) Acute on chronic renal failure Status: Acute Assessment and plan: The patient has stage III or IV chronic kidney disease with superimposed acute kidney injury likely on account of dehydration. The patient's blood pressures improving after medications were adjusted. I am going to reduce the Procardia to 30 mg once a day and continue Coreg. Will recheck blood pressure through the night and basic metabolic profile in the morning. Current Visit: Yes Qualifiers: Chronic kidney disease stage: stage 3 (moderate) (2) Status post nephrectomy Status: Chronic Current Visit: Yes (3) Diabetes mellitus Status: Chronic Current Visit: Yes Qualifiers: Diabetes mellitus type: type 2 Diabetes mellitus complication detail: with chronic kidney disease Diabetes mellitus senior care insulin use: with senior care use Chronic kidney disease stage: stage 3 (moderate) Hospitalist: Subjective Interval history: Mrs. Tello is up to toilet today. The patient has nausea with vomiting. She has some symptoms consistent with uremia. The patient has noted increased swelling of lower extremities. Exam - Constitutional Vitals: Period Temp Pulse Resp BP Sys/Posada Pulse Ox Last 24 Hr 97.8 F-99.2 F 71-85 16-21 90-165/51-78 95-98 Exam: Constitutional System: Mild distress on account of vomiting. No tremulousness. Head: Normocephalic, atraumatic. Ears, Nose and Throat System: No evidence of Otitis or Mastoiditis. No epistaxis or discharge Eyes System: Pupils equal, round, and reactive. Extraocular muscles intact. Neck: Supple, without adenopathy, No jugular venous distention. No thyromegaly , neck mass, or prior surgery apparent. Respiratory System: Chest with few rales in bases to auscultation. Cardiovascular System: Heart with regular rate and rhythm. No murmur. GI System: Abdomen soft, nontender. Normo active bowel sounds present. Musculoskeletal System: limbs with no pedal edema. Full distal pulses. Neurological System: No discernable sensory deficit. No aphasia Psychiatric System: Conversation is rational Results - Labs CBC & BMP: 03/18/17 04:41 03/18/17 04:41 Lab Results: I have reviewed the past 24 hour labs
--- NOTE | 2017-03-19 14:21 | Nephrology Progress Note ---
Nephrology - PN: Subj Interval history: Patient is resting comfortably states she is feeling okay has noticed some increased swelling. Last serum creatinine is noted be 5.8. No shortness of breath or chest pain. Headache has improved since yesterday. Blood pressures improved. Exam (PN)-Nephrology - Vital Signs Vital signs: Period Temp Pulse Resp BP Sys/Posada Pulse Ox Last 24 Hr 97.8 F-99.2 F 71-85 16-74 90-165/51-78 95-99 - General Appearance General appearance: well-developed, well-nourished EENT: ATNC Neck: supple Respiratory: clear Cardiology: edema (1+) Gastrointestinal: normoactive bowel sounds, no tenderness Musculoskeletal: no clubbing Psychiatric: mood/affect appropriate - Lab 03/18/17 04:41 03/18/17 04:41 Most recent lab results Calcium 7.4 MG/DL (8.5-10.1) L 03/18/17 04:41 Magnesium 2.0 MG/DL (1.8-2.4) 03/15/17 19:08 Assessment and Plan (1) CKD (chronic kidney disease) stage 3, GFR 30-59 ml/min Status: Chronic Assessment and plan: Chronic kidney disease will get a BMP in a.m. Have held Coreg at this time. Current Visit: No (2) Status post nephrectomy Status: Chronic Current Visit: Yes (3) Diabetes mellitus Status: Chronic Current Visit: Yes Qualifiers: Diabetes mellitus type: type 2 Diabetes mellitus complication detail: with chronic kidney disease Diabetes mellitus penitentiary insulin use: with slabber light use Chronic kidney disease stage: stage 3 (moderate) (4) Essential hypertension Status: Chronic Assessment and plan: Blood pressure better controlled today. Will hold Coreg at this time as blood pressure has been running a little on the low side. Current Visit: Yes
[2017-03-19] MEDS: ENOXAPARIN 30 MG/0.3 ML SYRINGE SUBCUT SCH (21:33)
[2017-03-20] MEDS: SODIUM ACETATE 100 MEQ in SODIUM CHLORIDE 0.45% 1,000 ML IV SCH (05:46)
[2017-03-20 05:52] LABS: Calcium 7.2 MG/DL (8.5-10.1); Magnesium 1.7 MG/DL (1.8-2.4); Osmolality,Calculated 276.4 MOS/KG (273-304); Potassium 4.1 MMOL/L (3.5-5.1)
[2017-03-20] MEDS: INSULIN LISPRO 100 UNIT/ML SUBCUT SCH ×4 (08:53→21:28)
[2017-03-20] MEDS: PANTOPRAZOLE 40 MG TABLET PO SCH (08:59)
[2017-03-20] MEDS: ASPIRIN EC 81 MG TABLET PO SCH (08:59)
[2017-03-20] MEDS: MULTIVITAMIN (CENTRUM) TABLET PO SCH (08:59)
[2017-03-20] MEDS: CHOLESTYRAMINE/ASPARTAME 4 GM PACK PO SCH (11:04)
[2017-03-20] MEDS: INSULIN GLARGINE 100 UNIT/ML SUBCUT SCH (11:04)
--- NOTE | 2017-03-20 14:09 | Nephrology Progress Note ---
Nephrology - PN: Subj Interval history: Ms. Tello is seen in follow-up of her renal impairment. Her acute component of the renal impairment is resolved with hydration. Creatinine 6.2 and BUN is 45 she is eating again and not vomiting. She says her diarrhea is much better. She took some nifedipine 2 evenings ago and says it made her swell so she refused to take it yesterday. We will stop the Procardia since she refuses it and resume Toprol XL which she was taking on admission. I think she is essentially back to her baseline renal function. Some of her blood pressure medicines were held when she came in due to hypotension. Exam (PN)-Nephrology - Vital Signs Vital signs: Period Temp Pulse Resp BP Sys/Posada Pulse Ox Last 24 Hr 96.5 F-99.3 F 73-83 17-20 105-167/56-86 94-97 - Lab 03/18/17 04:41 03/20/17 03:52 Most recent lab results Calcium 7.2 MG/DL (8.5-10.1) L 03/20/17 03:52 Magnesium 1.7 MG/DL (1.8-2.4) L 03/20/17 03:52 Assessment and Plan (1) Acute on chronic renal failure Status: Acute Assessment and plan: Fluids as you're doing. Correct acidosis Current Visit: Yes Qualifiers: Chronic kidney disease stage: stage 3 (moderate) (2) Status post nephrectomy Status: Chronic Current Visit: Yes (3) Metabolic acidosis Status: Acute Current Visit: Yes (4) Anemia Status: Acute Assessment and plan: due to ckd Current Visit: Yes
[2017-03-20] MEDS: MUPIROCIN 2% OINT 22 GM TUBE TOP SCH ×2 (15:15→21:29)
--- NOTE | 2017-03-20 15:19 | Hospitalist Progress Note ---
Assessment and Plan (1) Acute on chronic renal failure Status: Acute Assessment and plan: The patient has stage III or IV chronic kidney disease with superimposed acute kidney injury likely on account of dehydration. The patient's blood pressures improving after medications were adjusted. Dr. Montes discontinue calcium channel sylvia and restarted beta-sylvia today. We will recheck blood pressure through the night and basic metabolic profile in the morning. I anticipate discharge home tomorrow. Current Visit: Yes Qualifiers: Chronic kidney disease stage: stage 3 (moderate) (2) Status post nephrectomy Status: Chronic Current Visit: Yes (3) Diabetes mellitus Status: Chronic Current Visit: Yes Qualifiers: Diabetes mellitus type: type 2 Diabetes mellitus complication detail: with chronic kidney disease Diabetes mellitus prison insulin use: with prison use Chronic kidney disease stage: stage 3 (moderate) Hospitalist: Subjective Interval history: The patient is resting quietly today. The patient has less nausea and less diarrhea today. The patient does not have vomiting. The patient was able to eat small amounts. I coordinated care with Dr. Montes today. Exam - Constitutional Vitals: Period Temp Pulse Resp BP Sys/Posada Pulse Ox Last 24 Hr 96.5 F-99.3 F 73-83 17-20 105-167/56-86 94-97 Exam: Constitutional System: Mild distress on account of nausea. No tremulousness. Head: Normocephalic, atraumatic. Ears, Nose and Throat System: No evidence of Otitis or Mastoiditis. No epistaxis or discharge Eyes System: Pupils equal, round, and reactive. Extraocular muscles intact. Neck: Supple, without adenopathy, No jugular venous distention. No thyromegaly , neck mass, or prior surgery apparent. Respiratory System: Chest with few rales in bases to auscultation. Cardiovascular System: Heart with regular rate and rhythm. No murmur. GI System: Abdomen soft, nontender. Normo active bowel sounds present. Musculoskeletal System: limbs with no pedal edema. Full distal pulses. Neurological System: No discernable sensory deficit. No aphasia Psychiatric System: Conversation is rational Results - Labs CBC & BMP: 03/18/17 04:41 03/20/17 03:52 Lab Results: I have reviewed the past 24 hour labs
[2017-03-20] MEDS ORDERED: hydrALAZINE 25 MG TABLET PO PRN (15:20)
[2017-03-20] MEDS: ENOXAPARIN 30 MG/0.3 ML SYRINGE SUBCUT SCH (21:28)
[2017-03-21 08:48] LABS: Calcium 8.2 MG/DL (8.5-10.1); Magnesium 1.7 MG/DL (1.8-2.4); Osmolality,Calculated 275.5 MOS/KG (273-304); Potassium 4.3 MMOL/L (3.5-5.1)
[2017-03-21] MEDS: ASPIRIN EC 81 MG TABLET PO SCH (08:59)
[2017-03-21] MEDS: PANTOPRAZOLE 40 MG TABLET PO SCH (08:59)
[2017-03-21] MEDS: MULTIVITAMIN (CENTRUM) TABLET PO SCH (08:59)
[2017-03-21] MEDS: INSULIN LISPRO 100 UNIT/ML SUBCUT SCH ×2 (09:00→15:36)
[2017-03-21] MEDS: MUPIROCIN 2% OINT 22 GM TUBE TOP SCH (09:00)
[2017-03-21] MEDS: CHOLESTYRAMINE/ASPARTAME 4 GM PACK PO SCH (09:00)
[2017-03-21] MEDS ORDERED: METOPROLOL SUCCINATE XL 50 MG TABLET PO SCH (09:00)
--- NOTE | 2017-03-21 10:15 | Discharge Summary ---
Hospital Course - Hospital Course Hospital Course: The patient was admitted to the hospital with viral gastroenteritis, dehydration , and acute on chronic kidney disease stage IV. The patient's acute worsening of renal failure was due to dehydration. The patient was rehydrated and treated with supportive care. We held TIM inhibitor. We had consultation with Dr. Montes. Renal function is stable with creatinine approximately 6. I coordinate care with Dr. Montes. The patient has no acidosis or volume overload issues and does not require dialysis at this time. The patient's gastroenteritis symptoms resolved and she is ready for discharge home today. The patient will return to taking her usual medications and follow-up with Dr. Montes in the office. On the date of discharge chest clear and abdomen soft. Time spent for discharge procedures was 32 minutes - Time spent with patient Time with patient DS: Greater than 30 minutes Diagnosis - Discharge Diagnosis (1) Acute on chronic renal failure Status: Resolved (2) Status post nephrectomy Status: Chronic (3) Diabetes mellitus Status: Chronic Discharge Plan - Discharge Data Disposition: Disch To Home/Self Care Condition at Discharge: Stable Discharge Diet: advance to your usual diet Activity: resume usual activities as tolerated Hygiene: no restrictions - Discharge Medications New HYDROcodone/ACETAMIN 5-325 [[place] 5-325] 1 tablet PO Q4H PRN #0 tablet PRN Reason: Pain Mild (1-3) Continue Hydroxychloroquine [Plaquenil] 400 mg PO DAILY Chlorthalidone 25 mg PO QAM Metoprolol Succinate Xl [Toprol Xl] 50 mg PO BEDTIME Lisinopril 20 mg PO DAILY Multivitamin [Multivitamins] 1 each PO DAILY Aspirin [Ecotrin] 81 mg PO DAILY Discontinued Insulin Detemir [Levemir] 20 unit SUBCUT QAM - Follow Up or Referral Follow Up: Farshad Montes MD [Physician] - 2 Weeks - Forms/Instructions Exam - Constitutional Vitals: Period Temp Pulse Resp BP Sys/Posada Pulse Ox Last 24 Hr 96.5 F-98.2 F 70-88 18-20 140-167/69-86 95-97 Discharge Results Procedures and tests throughout hospitalization: Pending Orders 03/16/17 14:30 Occult Blood, Stool Routine Labs on day of discharge: Labs from last 24 hours 03/21/17 03/21/17 03/20/17 08:40 08:06 18:59 Sodium 132 L Potassium 4.3 Chloride 98 Carbon Dioxide 24 Anion Gap 14.3 BUN 50 H Creatinine 6.60 H GFR Calculation 8 BUN/Creatinine Ratio 7.00 Glucose 85 POC Glucose 105 152 H Calculated Osmolality 275.5 Calcium 8.2 L Magnesium 1.7 L Anti-ds DNA IgG Ab Titer 03/20/17 03/20/17 03/15/17 16:28 11:50 19:08 Sodium Potassium Chloride Carbon Dioxide Anion Gap BUN Creatinine GFR Calculation BUN/Creatinine Ratio Glucose POC Glucose 115 H 122 H Calculated Osmolality Calcium Magnesium Anti-ds DNA IgG Ab Titer < 12.3 DS: Provider Date of admission: 03/15/17 17:03 Primary care physician: Stephanie Bueno MD Attending physician on admission: Esdras Wright MD Consults: 03/15/17 18:14 Consult to Physician [CONS] Routine Comment: acute on chronic renal failure Consulting Provider: Farshad Montes Consulting Provider Notified: Yes When should Consulting Provider be notified: In am Consult to Specialist Group: Nephrology Person Notified: [email or web address] Date Notified: 03/16/17 Time Notified: 08:30 Consult to Physician [CONS] Routine Comment: [email or web address] Consulting Provider: Gayle Oliva Consulting Provider Notified: Yes When should Consulting Provider be notified: In am Person Notified: [email or web address] Date Notified: 03/16/17 Time Notified: 08:25 03/17/17 11:48 Consult to Occupational Therapy [CONS] Routine Reason for Occupational Therapy: Other Consult Comment: Headache/tension in neck 03/17/17 11:53 Consult to Sleep Center [CONS] Routine Reason for Sleep Center: Other Consult Comment: Needs outpatient sleep study Discharging clinician: Al Phelps MD
[2017-03-21 15:34] VITALS: BP 126/78
== END 2017-03-21 15:45 | disposition home or self-care (01) | DRG 683 ==
LOC: EDUNIT# → EDBD → N.ED 15:34 → N.EDINP 17:03 → SUATTDRO 17:03 → N.2E 17:23 → N.ICU 17:55 → N.4E 03-16 10:04
PROVIDERS: ADMIT Internal Medicine; ATTEND Internal Medicine

== ENCOUNTER 2017-11-02 11:34 | Inpatient (IN) ==
[2017-11-02] MEDS ORDERED: ONDANSETRON 4 MG/2 ML VIAL IV STA (11:59)
[2017-11-02] MEDS ORDERED: HYDROmorphone 2 MG/1 ML VIAL IV STA (11:59)
[2017-11-02] MEDS ORDERED: GLUCAGON 1 MG VIAL IM PRN ×2 (12:41→14:10)
[2017-11-02] MEDS ORDERED: DEXTROSE 50% 25 GM/50 ML VIAL IV PRN ×2 (12:41→14:10)
[2017-11-02] MEDS: SODIUM CHLORIDE 0.9% 1,000 ML IV SCH (12:58)
[2017-11-02] MEDS ORDERED: ONDANSETRON 4 MG/2 ML VIAL ONE (13:09)
[2017-11-02] MEDS ORDERED: HYDROmorphone 2 MG/1 ML VIAL ONE (13:10)
[2017-11-02] MEDS ORDERED: ONDANSETRON 4 MG/2 ML VIAL IV PRN (13:59)
[2017-11-02 16:29] LABS: Basophils % 0.4 % (0.0-0.8); Eosinophils # 0.2 10*3/uL (0.0-0.87); Eosinophils % 2.6 % (0.00-10.9); Hematocrit 29.6 VOL% (35.7-47.0); Hemoglobin 9.5 GM/DL (12.0-16.0); Immature Granulocytes % 0.5 %; Immature Granulocytes Absolute 0.04 #; Lymphocytes # 1.3 10*3/uL (1.4-4.0); Lymphocytes % 17.7 % (21.3-54.2); Mean Corpuscular HGB Conc 32.1 GM/DL (32-36); Mean Corpuscular Hemoglobin 30 PG (27-34); Mean Corpuscular Volume 91.9 FL (87-102); Mean Platelet Volume 8.9 FL (9.6-12.0); Monocytes % 13.3 % (1.7-12.7); Neutrophils # 4.8 10*3/uL (1.4-7.4); Neutrophils % 65.5 % (38.7-73.9); Platelet Count 156 T/CUMM (130-400); Red Blood Count 3.22 MC/CUMM (3.8-5.5); Red Cell Distribution Width 16.1 % (9.3-17.3); White Blood Count 7.3 T/CUMM (4-12)
[2017-11-02 16:53] LABS: Calcium 7.9 MG/DL (8.5-10.1); Osmolality,Calculated 292.2 MOS/KG (273-304); Potassium 4.4 MMOL/L (3.5-5.1)
[2017-11-02] MEDS: INSULIN REGULAR 100 UNIT/ML SUBCUT SCH ×2 (21:10→23:56)
[2017-11-03 05:47] LABS: Basophils % 0.4 % (0.0-0.8); Eosinophils # 0.2 10*3/uL (0.0-0.87); Eosinophils % 3.3 % (0.00-10.9); Hematocrit 27.3 VOL% (35.7-47.0); Hemoglobin 8.7 GM/DL (12.0-16.0); Immature Granulocytes % 0.6 %; Immature Granulocytes Absolute 0.04 #; Lymphocytes % 13.2 % (21.3-54.2); Mean Corpuscular HGB Conc 31.9 GM/DL (32-36); Mean Corpuscular Hemoglobin 29 PG (27-34); Mean Corpuscular Volume 92.2 FL (87-102); Mean Platelet Volume 9.2 FL (9.6-12.0); Monocytes # 0.8 10*3/uL (0.11-0.8); Monocytes % 11.3 % (1.7-12.7); Neutrophils # 5.2 10*3/uL (1.4-7.4); Neutrophils % 71.2 % (38.7-73.9); Platelet Count 139 T/CUMM (130-400); Red Blood Count 2.96 MC/CUMM (3.8-5.5); Red Cell Distribution Width 16.1 % (9.3-17.3); White Blood Count 7.3 T/CUMM (4-12)
[2017-11-03 06:16] LABS: Calcium 7.5 MG/DL (8.5-10.1); Potassium 5.2 MMOL/L (3.5-5.1)
[2017-11-03] MEDS: PANTOPRAZOLE 40 MG TABLET PO SCH (08:20)
[2017-11-03] MEDS: INSULIN REGULAR 100 UNIT/ML SUBCUT SCH ×4 (08:26→21:57)
[2017-11-03] MEDS ORDERED: CHLORHEXIDINE 4% SOLN 118 ML BOTTLE TOP ONE (09:29)
[2017-11-03] MEDS ORDERED: SKIN HEALING OINT (AQUAPHOR) 50 GM TUBE TOP PRN (09:29)
[2017-11-03] MEDS: SODIUM CHLORIDE 0.9% 1,000 ML IV SCH (10:35)
[2017-11-03] MEDS: PENTOXIFYLLINE 400 MG TABLET PO SCH ×2 (16:22→21:56)
[2017-11-03] MEDS ORDERED: ACETAMINOPHEN 325 MG TABLET PO PRN (17:32)
[2017-11-03] MEDS: INSULIN GLARGINE 100 UNIT/ML SUBCUT SCH (21:56)
[2017-11-03] MEDS: CEFTAROLINE 200 MG in SODIUM CHLORIDE 0.9% 50 ML IV SCH (21:56)
[2017-11-03] MEDS: predniSONE 10 MG TABLET PO SCH (21:56)
[2017-11-03] MEDS: METOPROLOL SUCCINATE XL 50 MG TABLET PO SCH (21:56)
[2017-11-03] MEDS: MORPHINE 2 MG/1 ML SYRINGE IV PRN (22:45)
[2017-11-04 04:36] LABS: Basophils % 0.3 % (0.0-0.8); Hematocrit 27.5 VOL% (35.7-47.0); Hemoglobin 8.5 GM/DL (12.0-16.0); Immature Granulocytes % 0.5 %; Immature Granulocytes Absolute 0.04 #; Lymphocytes # 0.8 10*3/uL (1.4-4.0); Mean Corpuscular HGB Conc 30.9 GM/DL (32-36); Mean Corpuscular Hemoglobin 29 PG (27-34); Mean Corpuscular Volume 94.8 FL (87-102); Monocytes # 0.3 10*3/uL (0.11-0.8); Monocytes % 3.4 % (1.7-12.7); Neutrophils # 6.3 10*3/uL (1.4-7.4); Neutrophils % 84.8 % (38.7-73.9); Platelet Count 144 T/CUMM (130-400); White Blood Count 7.5 T/CUMM (4-12)
[2017-11-04] MEDS: SODIUM CHLORIDE 0.9% 1,000 ML IV SCH (05:00)
[2017-11-04 05:07] LABS: Calcium 7.7 MG/DL (8.5-10.1); Osmolality,Calculated 294.1 MOS/KG (273-304); Potassium 5.5 MMOL/L (3.5-5.1)
[2017-11-04] MEDS: MORPHINE 2 MG/1 ML SYRINGE IV PRN ×3 (06:03→20:19)
[2017-11-04] MEDS: INSULIN REGULAR 100 UNIT/ML SUBCUT SCH ×4 (08:47→20:59)
[2017-11-04] MEDS: FERROUS GLUCONATE 324 MG TABLET PO SCH (09:11)
[2017-11-04] MEDS: PANTOPRAZOLE 40 MG TABLET PO SCH (09:12)
[2017-11-04] MEDS: predniSONE 10 MG TABLET PO SCH ×2 (09:12→20:58)
[2017-11-04] MEDS: PENTOXIFYLLINE 400 MG TABLET PO SCH ×3 (09:12→20:58)
[2017-11-04] MEDS: CEFTAROLINE 200 MG in SODIUM CHLORIDE 0.9% 50 ML IV SCH ×2 (09:12→21:01)
[2017-11-04] MEDS: LISINOPRIL 20 MG TABLET PO SCH (09:12)
[2017-11-04 13:57] LABS: Apearance,Urine Slightly Hazy (Clear); Bilirubin,Urine Negative (Negative); Blood, Urine Small mg/dL (Negative); Glucose,Urine (UA) 50 mg/dL (Negative); Ketones,Urine Negative (Negative); Nitrite,Urine Negative (Negative); Protein,Urine 100 MG/DL; RBC,Urine 1 /HPF (0-4); Squamous Epithelial Cell,Urine Occasional /HPF (0-10); Urine Color Yellow (Yellow); Urine Specific Gravity 1.009 (1.001-1.035); Urine Urobilinogen < 2.0 EU/DL (0.2-1.0); WBC,Urine 1 /HPF (0-6)
[2017-11-04] MEDS ORDERED: SODIUM POLYSTYRENE SULFATE 15 GM/60 ML BOTTLE PO ONE (17:45)
[2017-11-04] MEDS: METOPROLOL SUCCINATE XL 50 MG TABLET PO SCH (20:58)
[2017-11-04] MEDS: INSULIN GLARGINE 100 UNIT/ML SUBCUT SCH (20:58)
[2017-11-05] MEDS: MORPHINE 2 MG/1 ML SYRINGE IV PRN ×3 (03:21→19:22)
[2017-11-05 05:35] LABS: Basophils % 0.1 % (0.0-0.8); Hematocrit 25.1 VOL% (35.7-47.0); Hemoglobin 7.8 GM/DL (12.0-16.0); Immature Granulocytes % 0.5 %; Immature Granulocytes Absolute 0.04 #; Lymphocytes # 1.1 10*3/uL (1.4-4.0); Lymphocytes % 12.9 % (21.3-54.2); Mean Corpuscular HGB Conc 31.1 GM/DL (32-36); Mean Corpuscular Hemoglobin 30 PG (27-34); Mean Corpuscular Volume 95.1 FL (87-102); Mean Platelet Volume 9.2 FL (9.6-12.0); Monocytes # 0.4 10*3/uL (0.11-0.8); Monocytes % 4.7 % (1.7-12.7); Neutrophils # 6.9 10*3/uL (1.4-7.4); Neutrophils % 81.8 % (38.7-73.9); Platelet Count 135 T/CUMM (130-400); Red Blood Count 2.64 MC/CUMM (3.8-5.5); Red Cell Distribution Width 16.2 % (9.3-17.3); White Blood Count 8.4 T/CUMM (4-12)
[2017-11-05 06:15] LABS: Calcium 7.7 MG/DL (8.5-10.1); Osmolality,Calculated 293.1 MOS/KG (273-304); Potassium 5.1 MMOL/L (3.5-5.1)
[2017-11-05] MEDS: INSULIN REGULAR 100 UNIT/ML SUBCUT SCH ×4 (09:13→21:39)
[2017-11-05] MEDS: CEFTAROLINE 200 MG in SODIUM CHLORIDE 0.9% 50 ML IV SCH ×2 (09:43→21:42)
[2017-11-05] MEDS: FERROUS GLUCONATE 324 MG TABLET PO SCH (09:45)
[2017-11-05] MEDS: predniSONE 10 MG TABLET PO SCH ×2 (09:45→21:39)
[2017-11-05] MEDS: SODIUM CHLORIDE 0.9% 1,000 ML IV SCH ×2 (09:45→21:39)
[2017-11-05] MEDS: LISINOPRIL 20 MG TABLET PO SCH (09:46)
[2017-11-05] MEDS: PENTOXIFYLLINE 400 MG TABLET PO SCH ×3 (09:46→21:39)
[2017-11-05] MEDS: PANTOPRAZOLE 40 MG TABLET PO SCH (09:46)
[2017-11-05] MEDS: METOPROLOL SUCCINATE XL 50 MG TABLET PO SCH (21:39)
[2017-11-05] MEDS: INSULIN GLARGINE 100 UNIT/ML SUBCUT SCH (21:39)
[2017-11-06] MEDS: MORPHINE 2 MG/1 ML SYRINGE IV PRN (00:49)
[2017-11-06] MEDS: INSULIN REGULAR 100 UNIT/ML SUBCUT SCH ×4 (08:38→20:23)
[2017-11-06] MEDS: LISINOPRIL 20 MG TABLET PO SCH (08:38)
[2017-11-06] MEDS: FERROUS GLUCONATE 324 MG TABLET PO SCH (08:38)
[2017-11-06] MEDS: PENTOXIFYLLINE 400 MG TABLET PO SCH ×3 (08:38→20:23)
[2017-11-06] MEDS: PANTOPRAZOLE 40 MG TABLET PO SCH (08:38)
[2017-11-06] MEDS: predniSONE 10 MG TABLET PO SCH ×2 (08:38→20:23)
[2017-11-06] MEDS: DOCUSATE SODIUM 100 MG CAPSULE PO PRN (08:45)
[2017-11-06] MEDS: CEFTAROLINE 200 MG in SODIUM CHLORIDE 0.9% 50 ML IV SCH ×2 (09:59→20:23)
[2017-11-06] MEDS: SODIUM CHLORIDE 0.9% 1,000 ML IV SCH (17:10)
[2017-11-06] MEDS: INSULIN GLARGINE 100 UNIT/ML SUBCUT SCH (20:22)
[2017-11-06] MEDS: METOPROLOL SUCCINATE XL 50 MG TABLET PO SCH (20:23)
[2017-11-07 04:44] LABS: Basophils % 0.1 % (0.0-0.8); Eosinophils % 0.1 % (0.00-10.9); Hematocrit 26.7 VOL% (35.7-47.0); Hemoglobin 8.5 GM/DL (12.0-16.0); Immature Granulocytes % 0.6 %; Immature Granulocytes Absolute 0.04 #; Lymphocytes # 0.8 10*3/uL (1.4-4.0); Lymphocytes % 11.6 % (21.3-54.2); Mean Corpuscular HGB Conc 31.8 GM/DL (32-36); Mean Corpuscular Hemoglobin 30 PG (27-34); Mean Corpuscular Volume 92.7 FL (87-102); Mean Platelet Volume 8.7 FL (9.6-12.0); Monocytes # 0.5 10*3/uL (0.11-0.8); Monocytes % 6.4 % (1.7-12.7); Neutrophils # 5.7 10*3/uL (1.4-7.4); Neutrophils % 81.2 % (38.7-73.9); Platelet Count 122 T/CUMM (130-400); Red Blood Count 2.88 MC/CUMM (3.8-5.5); Red Cell Distribution Width 16.3 % (9.3-17.3)
[2017-11-07 05:12] LABS: Calcium 7.5 MG/DL (8.5-10.1); Osmolality,Calculated 293.1 MOS/KG (273-304)
[2017-11-07] MEDS: INSULIN REGULAR 100 UNIT/ML SUBCUT SCH ×4 (09:08→21:32)
[2017-11-07] MEDS: CEFTAROLINE 200 MG in SODIUM CHLORIDE 0.9% 50 ML IV SCH ×2 (09:53→21:19)
[2017-11-07] MEDS: PENTOXIFYLLINE 400 MG TABLET PO SCH ×3 (09:54→21:19)
[2017-11-07] MEDS: FERROUS GLUCONATE 324 MG TABLET PO SCH (09:54)
[2017-11-07] MEDS: predniSONE 10 MG TABLET PO SCH ×2 (09:54→21:19)
[2017-11-07] MEDS: LISINOPRIL 20 MG TABLET PO SCH (09:54)
[2017-11-07] MEDS: DOCUSATE SODIUM 100 MG CAPSULE PO PRN (09:54)
[2017-11-07] MEDS: PANTOPRAZOLE 40 MG TABLET PO SCH (09:55)
[2017-11-07] MEDS: SODIUM CHLORIDE 0.9% 1,000 ML IV SCH (16:19)
[2017-11-07] MEDS: INSULIN GLARGINE 100 UNIT/ML SUBCUT SCH (21:18)
[2017-11-07] MEDS: METOPROLOL SUCCINATE XL 50 MG TABLET PO SCH (21:19)
[2017-11-08] MEDS: INSULIN REGULAR 100 UNIT/ML SUBCUT SCH ×4 (07:56→21:39)
[2017-11-08] MEDS: PENTOXIFYLLINE 400 MG TABLET PO SCH ×3 (08:48→21:40)
[2017-11-08] MEDS: LISINOPRIL 20 MG TABLET PO SCH (08:48)
[2017-11-08] MEDS: predniSONE 10 MG TABLET PO SCH ×2 (08:48→21:39)
[2017-11-08] MEDS: FERROUS GLUCONATE 324 MG TABLET PO SCH (08:48)
[2017-11-08] MEDS: PANTOPRAZOLE 40 MG TABLET PO SCH (08:48)
[2017-11-08] MEDS: CEFTAROLINE 200 MG in SODIUM CHLORIDE 0.9% 50 ML IV SCH ×2 (08:50→21:40)
[2017-11-08] MEDS: DOCUSATE SODIUM 100 MG CAPSULE PO PRN (16:11)
[2017-11-08] MEDS: METOPROLOL SUCCINATE XL 50 MG TABLET PO SCH (21:39)
[2017-11-08] MEDS: INSULIN GLARGINE 100 UNIT/ML SUBCUT SCH (21:39)
[2017-11-09 04:10] LABS: Hematocrit 26.1 VOL% (35.7-47.0); Hemoglobin 8.3 GM/DL (12.0-16.0); Immature Granulocytes % 0.3 %; Immature Granulocytes Absolute 0.02 #; Lymphocytes # 0.7 10*3/uL (1.4-4.0); Lymphocytes % 9.8 % (21.3-54.2); Mean Corpuscular HGB Conc 31.8 GM/DL (32-36); Mean Corpuscular Hemoglobin 30 PG (27-34); Mean Corpuscular Volume 94.2 FL (87-102); Mean Platelet Volume 9.3 FL (9.6-12.0); Monocytes # 0.4 10*3/uL (0.11-0.8); Monocytes % 5.6 % (1.7-12.7); Neutrophils # 5.9 10*3/uL (1.4-7.4); Neutrophils % 84.3 % (38.7-73.9); Platelet Count 139 T/CUMM (130-400); Red Blood Count 2.77 MC/CUMM (3.8-5.5); Red Cell Distribution Width 16.1 % (9.3-17.3)
[2017-11-09 04:46] LABS: Calcium 7.9 MG/DL (8.5-10.1); Magnesium 1.9 MG/DL (1.8-2.4); Osmolality,Calculated 295.1 MOS/KG (273-304); Potassium 4.9 MMOL/L (3.5-5.1)
[2017-11-09] MEDS: MORPHINE 2 MG/1 ML SYRINGE IV PRN (06:05)
[2017-11-09] MEDS: SODIUM CHLORIDE 0.9% 1,000 ML IV SCH ×2 (06:15→16:31)
[2017-11-09] MEDS: INSULIN REGULAR 100 UNIT/ML SUBCUT SCH ×3 (07:24→16:31)
[2017-11-09] MEDS ORDERED: POLYETHYLENE GLYCOL POWDER 17 GM PACK PO SCH (09:00)
[2017-11-09] MEDS: FERROUS GLUCONATE 324 MG TABLET PO SCH (10:07)
[2017-11-09] MEDS: PANTOPRAZOLE 40 MG TABLET PO SCH (10:07)
[2017-11-09] MEDS: CEFTAROLINE 200 MG in SODIUM CHLORIDE 0.9% 50 ML IV SCH (10:07)
[2017-11-09] MEDS: LISINOPRIL 20 MG TABLET PO SCH (10:07)
[2017-11-09] MEDS: predniSONE 10 MG TABLET PO SCH (10:07)
[2017-11-09] MEDS: PENTOXIFYLLINE 400 MG TABLET PO SCH ×2 (10:08→16:31)
[2017-11-09 11:39] VITALS: BP 159/82
== END 2017-11-09 16:05 | disposition home or self-care (01) | DRG 593 ==
LOC: EDUNIT# → N.ED 11:34 → N.EDINP 12:45 → SUATTDRO 12:45 → N.EDINP 18:33 → N.3E 18:46
PROVIDERS: ADMIT Internal Medicine; ATTEND Internal Medicine

== ENCOUNTER 2017-11-29 10:27 | Inpatient (IN) ==
[2017-11-29] MEDS ORDERED: GLUCAGON 1 MG VIAL IM PRN (10:34)
[2017-11-29] MEDS ORDERED: INSULIN REGULAR 100 UNIT/ML SUBCUT SCH (12:00)
[2017-11-29 13:53] LABS: Basophils % 0.2 % (0.0-0.8); Eosinophils # 0.1 10*3/uL (0.0-0.87); Eosinophils % 0.7 % (0.00-10.9); Hematocrit 21.8 VOL% (35.7-47.0); Immature Granulocytes % 0.7 %; Immature Granulocytes Absolute 0.06 #; Lymphocytes % 12.7 % (21.3-54.2); Mean Corpuscular HGB Conc 31.7 GM/DL (32-36); Mean Corpuscular Hemoglobin 30 PG (27-34); Mean Corpuscular Volume 95.6 FL (87-102); Mean Platelet Volume 9.3 FL (9.6-12.0); Monocytes # 0.9 10*3/uL (0.11-0.8); Monocytes % 10.6 % (1.7-12.7); Neutrophils # 6.1 10*3/uL (1.4-7.4); Neutrophils % 75.1 % (38.7-73.9); Platelet Count 108 T/CUMM (130-400); Red Blood Count 2.28 MC/CUMM (3.8-5.5); Red Cell Distribution Width 18.2 % (9.3-17.3); White Blood Count 8.1 T/CUMM (4-12)
[2017-11-29 13:57] LABS: Hemoglobin 6.9 GM/DL (12.0-16.0)
[2017-11-29 14:01] LABS: Albumin 1.8 G/DL (3.4-5.0); Bilirubin,Total 0.4 MG/DL (0.2-1.0); Osmolality,Calculated 284.8 MOS/KG (273-304); Potassium 4.4 MMOL/L (3.5-5.1); Risk Ratio 2.04; Total Protein 6.7 G/DL (6.4-8.3); VLDL CHOLESTEROL 11.4 MG/DL
[2017-11-29] MEDS ORDERED: SKIN HEALING OINT (AQUAPHOR) 50 GM TUBE TOP PRN (14:03)
[2017-11-29] MEDS ORDERED: SODIUM CHLORIDE 0.9% 1,000 ML IV PRN (14:46)
[2017-11-29] MEDS ORDERED: SODIUM THIOSULFATE 12.5 GM/50 ML VIAL IV PRN (14:49)
[2017-11-29 15:14] LABS: % Iron Saturation 10.5 % (18-50)
[2017-11-29] MEDS ORDERED: SODIUM THIOSULFATE 25 GM in SODIUM CHLORIDE 0.9% 100 ML IV SCH (15:30)
[2017-11-29] MEDS: MORPHINE 2 MG/1 ML SYRINGE IV PRN ×2 (15:47→23:22)
[2017-11-29] MEDS: SEVELAMER CARBONATE 800 MG TABLET PO SCH (16:32)
[2017-11-29] MEDS: METOPROLOL SUCCINATE XL 50 MG TABLET PO SCH (20:15)
[2017-11-29] MEDS ORDERED: IRON SUCROSE 100 MG/5 ML VIAL IV SCH (20:30)
[2017-11-29] MEDS: INSULIN REGULAR 100 UNIT/ML SUBCUT SCH (20:56)
[2017-11-29] MEDS: INSULIN GLARGINE 100 UNIT/ML SUBCUT SCH (20:57)
[2017-11-29] MEDS ORDERED: SODIUM BICARBONATE 650 MG TABLET PO SCH (21:00)
[2017-11-30] MEDS ORDERED: ceFAZolin 1,000 MG in SYRINGE 1 EACH IV ONE (06:00)
[2017-11-30] MEDS ORDERED: HEPARIN 5,000 UNIT/1 ML VIAL ONE (06:28)
[2017-11-30] MEDS ORDERED: BUPIVACAINE 0.25% 50 ML VIAL ONE (06:28)
[2017-11-30] MEDS: DEXTROSE 50% 25 GM/50 ML VIAL IV PRN ×2 (06:32→08:20)
[2017-11-30 06:41] LABS: Basophils % 0.2 % (0.0-0.8); Eosinophils # 0.2 10*3/uL (0.0-0.87); Eosinophils % 1.5 % (0.00-10.9); Hematocrit 21.6 VOL% (35.7-47.0); Hemoglobin 6.7 GM/DL (12.0-16.0); Immature Granulocytes % 0.7 %; Immature Granulocytes Absolute 0.07 #; Lymphocytes # 1.5 10*3/uL (1.4-4.0); Lymphocytes % 15.5 % (21.3-54.2); Mean Corpuscular Hemoglobin 30 PG (27-34); Mean Corpuscular Volume 95.6 FL (87-102); Mean Platelet Volume 9.5 FL (9.6-12.0); Monocytes % 10.4 % (1.7-12.7); Neutrophils # 6.9 10*3/uL (1.4-7.4); Neutrophils % 71.7 % (38.7-73.9); Platelet Count 103 T/CUMM (130-400); Red Blood Count 2.26 MC/CUMM (3.8-5.5); Red Cell Distribution Width 17.9 % (9.3-17.3); White Blood Count 9.7 T/CUMM (4-12)
[2017-11-30 06:57] LABS: Albumin 1.7 G/DL (3.4-5.0); Bilirubin,Total 0.5 MG/DL (0.2-1.0); Calcium 7.2 MG/DL (8.5-10.1); Osmolality,Calculated 282.8 MOS/KG (273-304); Potassium 4.6 MMOL/L (3.5-5.1); Total Protein 6.3 G/DL (6.4-8.3)
[2017-11-30] MEDS ORDERED: SODIUM CHLORIDE 0.9% 250 ML IV SCH (07:30)
[2017-11-30] MEDS: INSULIN REGULAR 100 UNIT/ML SUBCUT SCH ×4 (07:36→20:08)
[2017-11-30] MEDS: SEVELAMER CARBONATE 800 MG TABLET PO SCH ×4 (07:37→16:58)
[2017-11-30] MEDS ORDERED: PROPOFOL 200 MG/20 ML VIAL IV ONE (08:02)
[2017-11-30] MEDS ORDERED: DEXAMETHASONE 10 MG/1 ML VIAL ONE (08:03)
[2017-11-30] MEDS ORDERED: fentaNYL 100 MCG/2 ML VIAL ONE (08:03)
[2017-11-30] MEDS ORDERED: ONDANSETRON 4 MG/2 ML VIAL ONE (08:03)
[2017-11-30] MEDS ORDERED: METOPROLOL TARTRATE 5 MG/5 ML VIAL IV ONE (08:03)
[2017-11-30] MEDS ORDERED: KETOROLAC 30 MG/1 ML VIAL ONE (08:03)
[2017-11-30] MEDS ORDERED: MIDAZOLAM 2 MG/2 ML VIAL ONE (08:03)
[2017-11-30] MEDS ORDERED: DEXTROSE 50% 25 GM/50 ML VIAL IV ONE (08:17)
[2017-11-30] MEDS ORDERED: FERROUS GLUCONATE 324 MG TABLET PO SCH (09:00)
[2017-11-30] MEDS: LISINOPRIL 20 MG TABLET PO SCH (09:39)
[2017-11-30 09:46] LABS: Hepatitis A Ab IgM Quant 0.09 Index; Hepatitis A Ab IgM Result Negative (Negative); Hepatitis B Core IgM Quant 0.17 Index; Hepatitis B Core IgM Result Negative (Negative); Hepatitis B Surface Ag Quant < 0.10 Index; Hepatitis B Surface Ag Result Negative (Negative); Hepatitis C Virus Ab Quant 0.12 Index; Hepatitis C Virus Ab Result Negative (Negative)
[2017-11-30] MEDS: HYDROXYCHLOROQUINE 200 MG TABLET PO SCH (09:46)
[2017-11-30] MEDS: metOLazone 5 MG TABLET PO SCH (09:46)
[2017-11-30] MEDS: ASPIRIN EC 81 MG TABLET PO SCH (09:46)
[2017-11-30] MEDS: MULTIVITAMIN (CENTRUM) TABLET PO SCH (09:46)
[2017-11-30 18:56] LABS: Hematocrit 28.6 VOL% (35.7-47.0); Hemoglobin 9.1 GM/DL (12.0-16.0)
[2017-11-30] MEDS: INSULIN GLARGINE 100 UNIT/ML SUBCUT SCH (20:06)
[2017-11-30] MEDS: METOPROLOL SUCCINATE XL 50 MG TABLET PO SCH (20:06)
[2017-11-30] MEDS ORDERED: ALUMINUM/MAGNES/SIMETH MAX STR 30 ML UDCUP PO PRN (22:11)
[2017-12-01] MEDS: INSULIN REGULAR 100 UNIT/ML SUBCUT SCH ×4 (08:11→20:27)
[2017-12-01] MEDS ORDERED: EPOETIN ALFA 10,000 UNIT/1 ML VIAL IV PRN (08:55)
[2017-12-01] MEDS: HYDROXYCHLOROQUINE 200 MG TABLET PO SCH (09:10)
[2017-12-01] MEDS: LISINOPRIL 20 MG TABLET PO SCH (09:10)
[2017-12-01] MEDS: CINACALCET 30 MG TABLET PO SCH (09:11)
[2017-12-01] MEDS: MULTIVITAMIN (CENTRUM) TABLET PO SCH (09:11)
[2017-12-01] MEDS: SEVELAMER CARBONATE 800 MG TABLET PO SCH ×3 (09:11→16:58)
[2017-12-01] MEDS: metOLazone 5 MG TABLET PO SCH (09:11)
[2017-12-01] MEDS: ASPIRIN EC 81 MG TABLET PO SCH (09:11)
[2017-12-01] MEDS ORDERED: ZINC OXIDE PASTE 113 GM TUBE TOP PRN (18:58)
[2017-12-01] MEDS: INSULIN GLARGINE 100 UNIT/ML SUBCUT SCH (20:27)
[2017-12-01] MEDS: METOPROLOL SUCCINATE XL 50 MG TABLET PO SCH (21:17)
[2017-12-01] MEDS ORDERED: traZODone 50 MG TABLET PO SCH (22:00)
[2017-12-02] MEDS: INSULIN REGULAR 100 UNIT/ML SUBCUT SCH ×2 (07:51→12:39)
[2017-12-02] MEDS: LISINOPRIL 20 MG TABLET PO SCH (08:00)
[2017-12-02] MEDS: SEVELAMER CARBONATE 800 MG TABLET PO SCH ×2 (08:00→12:38)
[2017-12-02] MEDS: metOLazone 5 MG TABLET PO SCH (08:00)
[2017-12-02] MEDS: HYDROXYCHLOROQUINE 200 MG TABLET PO SCH (08:00)
[2017-12-02] MEDS: ASPIRIN EC 81 MG TABLET PO SCH (08:01)
[2017-12-02] MEDS: MULTIVITAMIN (CENTRUM) TABLET PO SCH (08:01)
[2017-12-02] MEDS ORDERED: HEPARIN 10,000 UNIT/10 ML VIAL IV SCH (12:00)
[2017-12-02 12:34] VITALS: BP 159/80
[2017-12-02] MEDS: CINACALCET 30 MG TABLET PO SCH (12:38)
== END 2017-12-02 14:54 | disposition home or self-care (01) | DRG 699 ==
LOC: N.5E 12:57
PROVIDERS: ADMIT Internal Medicine Geriatric Medicine; ATTEND Internal Medicine Geriatric Medicine

== ENCOUNTER 2017-12-20 11:07 | Inpatient (IN) ==
[2017-12-20] MEDS ORDERED: CLINDAMYCIN INJ 600 MG in PREMIX 1 EACH IV STA (12:44)
[2017-12-20 12:50] LABS: Basophils % 0.2 % (0.0-0.8); Eosinophils # 0.1 10*3/uL (0.0-0.87); Eosinophils % 0.5 % (0.00-10.9); Hematocrit 25.4 VOL% (35.7-47.0); Immature Granulocytes % 0.8 %; Lymphocytes # 1.2 10*3/uL (1.4-4.0); Lymphocytes % 9.7 % (21.3-54.2); Mean Corpuscular HGB Conc 31.5 GM/DL (32-36); Mean Corpuscular Hemoglobin 30 PG (27-34); Mean Corpuscular Volume 96.2 FL (87-102); Mean Platelet Volume 9.7 FL (9.6-12.0); Monocytes # 1.1 10*3/uL (0.11-0.8); Monocytes % 8.5 % (1.7-12.7); Neutrophils # 9.9 10*3/uL (1.4-7.4); Neutrophils % 80.3 % (38.7-73.9); Platelet Count 176 T/CUMM (130-400); Red Blood Count 2.64 MC/CUMM (3.8-5.5); Red Cell Distribution Width 21.4 % (9.3-17.3); White Blood Count 12.3 T/CUMM (4-12)
[2017-12-20 13:07] LABS: Albumin 1.3 G/DL (3.4-5.0); Calcium 8.3 MG/DL (8.5-10.1); Osmolality,Calculated 277.5 MOS/KG (273-304); Potassium 2.8 MMOL/L (3.5-5.1); Total Protein 7.3 G/DL (6.4-8.3)
[2017-12-20] MEDS ORDERED: CLINDAMYCIN INJ 50 ML IV ONE (13:09)
[2017-12-20 13:36] LABS: Lactic Acid 1.3 MMOL/L (0.4-2.0)
[2017-12-20 15:20] LABS: Anisocytosis 2+; Band Neutrophils 2 % (0-10); Hypochromasia 1+; Lymphocytes 8 % (20-55); Macrocytosis 2+; Platelet Estimate Normal; Segmented Neutrophils 81 % (50-85); Total Cells Counted 100
[2017-12-20] MEDS ORDERED: POTASSIUM CHLORIDE 20 MEQ TABLET PO ONE (17:44)
[2017-12-20] MEDS ORDERED: GLUCAGON 1 MG VIAL IM PRN (17:44)
[2017-12-20] MEDS ORDERED: ONDANSETRON 4 MG/2 ML VIAL IV PRN (17:44)
[2017-12-20] MEDS ORDERED: DEXTROSE 50% 25 GM/50 ML VIAL IV PRN (17:44)
[2017-12-20] MEDS: INSULIN LISPRO 100 UNIT/ML SUBCUT SCH ×2 (18:39→20:40)
[2017-12-20] MEDS ORDERED: VANCOMYCIN INJ 1,750 MG in SODIUM CHLORIDE 0.9% 500 ML IV ONE (19:00)
[2017-12-20 22:19] LABS: Apearance,Urine CLOUDY (Clear); Bacteria,Urine Occasional /HPF (Few); Bilirubin,Urine Negative (Negative); Blood, Urine Large mg/dL (Negative); Glucose,Urine (UA) 50 mg/dL (Negative); Ketones,Urine Negative (Negative); Nitrite,Urine Negative (Negative); Protein,Urine 100 MG/DL; RBC,Urine 1272 /HPF (0-4); Squamous Epithelial Cell,Urine Occasional /HPF (0-10); Urine Color Amber (Yellow); Urine Specific Gravity 1.016 (1.001-1.035); Urine Urobilinogen < 2.0 EU/DL (0.2-1.0); WBC,Urine 48 /HPF (0-6)
[2017-12-21 06:32] LABS: Basophils % 0.1 % (0.0-0.8); Eosinophils # 0.1 10*3/uL (0.0-0.87); Eosinophils % 0.8 % (0.00-10.9); Hematocrit 21.9 VOL% (35.7-47.0); Hemoglobin 7.2 GM/DL (12.0-16.0); Immature Granulocytes % 0.7 %; Lymphocytes % 14.6 % (21.3-54.2); Mean Corpuscular HGB Conc 32.9 GM/DL (32-36); Mean Corpuscular Hemoglobin 31 PG (27-34); Mean Corpuscular Volume 92.8 FL (87-102); Mean Platelet Volume 9.6 FL (9.6-12.0); Monocytes # 1.3 10*3/uL (0.11-0.8); Monocytes % 9.6 % (1.7-12.7); Neutrophils % 74.2 % (38.7-73.9); Platelet Count 144 T/CUMM (130-400); Red Blood Count 2.36 MC/CUMM (3.8-5.5); Red Cell Distribution Width 21.5 % (9.3-17.3); White Blood Count 13.5 T/CUMM (4-12)
[2017-12-21 07:07] LABS: Calcium 7.3 MG/DL (8.5-10.1); Osmolality,Calculated 284.1 MOS/KG (273-304); Potassium 3.1 MMOL/L (3.5-5.1); Risk Ratio 3.86; Thyroid Stimulating Hormone 1.42 uIU/ml (0.358-3.74); VLDL CHOLESTEROL 15.6 MG/DL
[2017-12-21 07:12] LABS: Albumin 1.2 G/DL (3.4-5.0); Bilirubin,Direct 0.38 MG/DL (0.0-0.20); Bilirubin,Indirect 0.5 MG/DL (0.0-1.0); Bilirubin,Total 0.9 MG/DL (0.2-1.0); Total Protein 5.8 G/DL (6.4-8.3)
[2017-12-21 07:21] LABS: Band Neutrophils 2 % (0-10); Lymphocytes 9 % (20-55); Segmented Neutrophils 82 % (50-85); Total Cells Counted 100
[2017-12-21 07:22] LABS: Hypochromasia 1+; Macrocytosis Slight; Platelet Estimate Normal
[2017-12-21] MEDS: INSULIN LISPRO 100 UNIT/ML SUBCUT SCH ×4 (07:37→20:44)
[2017-12-21] MEDS ORDERED: SODIUM CHLORIDE 0.9% 1,000 ML IV PRN (08:26)
[2017-12-21] MEDS: PANTOPRAZOLE 40 MG TABLET PO SCH (08:59)
[2017-12-21] MEDS ORDERED: SILVER SULFADIAZINE 1% CREAM 25 GM TUBE TOP SCH (09:00)
[2017-12-21] MEDS: SILVER SULFADIAZINE 1% CREAM 400 GM JAR TOP SCH (12:00)
[2017-12-21] MEDS ORDERED: HEPARIN 10,000 UNIT/10 ML VIAL IV PRN (13:44)
[2017-12-21] MEDS: ACETAMINOPHEN 325 MG TABLET PO PRN ×2 (13:45→20:40)
[2017-12-21] MEDS ORDERED: EPOETIN ALFA 2,000 UNIT/1 ML VIAL IV PRN (13:49)
[2017-12-21] MEDS: SODIUM BICARBONATE 650 MG TABLET PO SCH ×2 (15:15→20:03)
[2017-12-21] MEDS ORDERED: VANCOMYCIN INJ 750 MG in SODIUM CHLORIDE 0.9% 250 ML IV ONE (17:00)
[2017-12-21] MEDS: cefTRIAXone 1,000 MG in SODIUM CHLORIDE 0.9% 100 ML IV SCH (17:40)
[2017-12-21] MEDS: SEVELAMER CARBONATE 800 MG TABLET PO SCH (17:40)
[2017-12-21] MEDS ORDERED: VANCOMYCIN INJ 750 MG in SODIUM CHLORIDE 0.9% 250 ML IV PRN (18:00)
[2017-12-21] MEDS: HYDROmorphone 2 MG/1 ML VIAL IM PRN (20:04)
[2017-12-21] MEDS: METOPROLOL SUCCINATE XL 50 MG TABLET PO SCH (20:38)
[2017-12-21] MEDS: INSULIN GLARGINE 100 UNIT/ML SUBCUT SCH (20:44)
[2017-12-22] MEDS: HYDROmorphone 2 MG/1 ML VIAL IM PRN ×5 (02:44→20:31)
[2017-12-22 06:29] LABS: Calcium 7.1 MG/DL (8.5-10.1); Osmolality,Calculated 278.4 MOS/KG (273-304); Potassium 3.5 MMOL/L (3.5-5.1)
[2017-12-22 07:48] LABS: Basophils % 0.2 % (0.0-0.8); Eosinophils # 0.3 10*3/uL (0.0-0.87); Eosinophils % 1.4 % (0.00-10.9); Hematocrit 31.1 VOL% (35.7-47.0); Immature Granulocytes % 1.3 %; Immature Granulocytes Absolute 0.25 #; Lymphocytes # 2.4 10*3/uL (1.4-4.0); Lymphocytes % 12.3 % (21.3-54.2); Mean Corpuscular HGB Conc 31.2 GM/DL (32-36); Mean Corpuscular Hemoglobin 30 PG (27-34); Mean Corpuscular Volume 96.3 FL (87-102); Monocytes # 1.6 10*3/uL (0.11-0.8); Monocytes % 8.2 % (1.7-12.7); Neutrophils # 15.2 10*3/uL (1.4-7.4); Neutrophils % 76.6 % (38.7-73.9); Platelet Count 133 T/CUMM (130-400); Red Cell Distribution Width 22.2 % (9.3-17.3)
[2017-12-22 07:50] LABS: Red Blood Count 3.23 MC/CUMM (3.8-5.5); White Blood Count 19.8 T/CUMM (4-12)
[2017-12-22 07:51] LABS: Hemoglobin 9.7 GM/DL (12.0-16.0)
[2017-12-22 08:09] LABS: Band Neutrophils 4 % (0-10); Lymphocytes 4 % (20-55); Segmented Neutrophils 84 % (50-85); Total Cells Counted 100
[2017-12-22 08:10] LABS: Hypochromasia 1+; Macrocytosis 1+
[2017-12-22] MEDS: ASPIRIN EC 81 MG TABLET PO SCH (09:20)
[2017-12-22] MEDS: PANTOPRAZOLE 40 MG TABLET PO SCH (09:20)
[2017-12-22] MEDS: SODIUM BICARBONATE 650 MG TABLET PO SCH ×3 (09:21→20:31)
[2017-12-22] MEDS: LISINOPRIL 20 MG TABLET PO SCH (09:21)
[2017-12-22] MEDS: HYDROXYCHLOROQUINE 200 MG TABLET PO SCH (09:21)
[2017-12-22] MEDS: CINACALCET 30 MG TABLET PO SCH (09:22)
[2017-12-22] MEDS: MULTIVITAMIN (CENTRUM) TABLET PO SCH (09:22)
[2017-12-22] MEDS: FERROUS GLUCONATE 324 MG TABLET PO SCH (09:22)
[2017-12-22] MEDS: SEVELAMER CARBONATE 800 MG TABLET PO SCH ×3 (09:22→16:30)
[2017-12-22] MEDS: INSULIN LISPRO 100 UNIT/ML SUBCUT SCH ×4 (09:52→20:03)
[2017-12-22] MEDS: SILVER SULFADIAZINE 1% CREAM 400 GM JAR TOP SCH (10:20)
[2017-12-22] MEDS: SILVER SULFADIAZINE 1% CREAM 25 GM TUBE TOP SCH (10:20)
[2017-12-22] MEDS: cefTRIAXone 1,000 MG in SODIUM CHLORIDE 0.9% 100 ML IV SCH (18:10)
[2017-12-22] MEDS: METOPROLOL SUCCINATE XL 50 MG TABLET PO SCH (20:31)
[2017-12-22] MEDS: predniSONE 10 MG TABLET PO SCH (20:31)
[2017-12-22] MEDS: INSULIN GLARGINE 100 UNIT/ML SUBCUT SCH (20:31)
[2017-12-22] MEDS: ACETAMINOPHEN 325 MG TABLET PO PRN (20:33)
[2017-12-23] MEDS: HYDROmorphone 2 MG/1 ML VIAL IM PRN ×5 (02:10→20:36)
[2017-12-23] MEDS: INSULIN LISPRO 100 UNIT/ML SUBCUT SCH ×4 (07:40→20:32)
[2017-12-23] MEDS: SEVELAMER CARBONATE 800 MG TABLET PO SCH ×3 (11:53→17:40)
[2017-12-23] MEDS: SODIUM BICARBONATE 650 MG TABLET PO SCH ×3 (11:54→20:29)
[2017-12-23] MEDS: FERROUS GLUCONATE 324 MG TABLET PO SCH (12:10)
[2017-12-23] MEDS: HYDROXYCHLOROQUINE 200 MG TABLET PO SCH (12:11)
[2017-12-23] MEDS: PANTOPRAZOLE 40 MG TABLET PO SCH (12:11)
[2017-12-23] MEDS: CINACALCET 30 MG TABLET PO SCH (12:13)
[2017-12-23] MEDS: predniSONE 10 MG TABLET PO SCH ×2 (12:13→20:29)
[2017-12-23] MEDS: ASPIRIN EC 81 MG TABLET PO SCH (12:13)
[2017-12-23] MEDS: LISINOPRIL 20 MG TABLET PO SCH (12:13)
[2017-12-23] MEDS: MULTIVITAMIN (CENTRUM) TABLET PO SCH (12:13)
[2017-12-23] MEDS ORDERED: VANCOMYCIN INJ 500 MG in SODIUM CHLORIDE 0.9% 100 ML IV ONE (14:00)
[2017-12-23] MEDS: SILVER SULFADIAZINE 1% CREAM 25 GM TUBE TOP SCH ×2 (15:38→16:30)
[2017-12-23] MEDS: SILVER SULFADIAZINE 1% CREAM 400 GM JAR TOP SCH ×2 (15:38→16:30)
[2017-12-23] MEDS: cefTRIAXone 1,000 MG in SODIUM CHLORIDE 0.9% 100 ML IV SCH (17:40)
[2017-12-23] MEDS ORDERED: VANCOMYCIN INJ 500 MG in SODIUM CHLORIDE 0.9% 100 ML IV PRN (18:00)
[2017-12-23] MEDS: METOPROLOL SUCCINATE XL 50 MG TABLET PO SCH (20:30)
[2017-12-23] MEDS: INSULIN GLARGINE 100 UNIT/ML SUBCUT SCH (20:31)
[2017-12-24 06:07] LABS: Basophils % 0.1 % (0.0-0.8); Eosinophils % 0.1 % (0.00-10.9); Hematocrit 29.2 VOL% (35.7-47.0); Hemoglobin 9.5 GM/DL (12.0-16.0); INR 1.5; Immature Granulocytes % 1.3 %; Immature Granulocytes Absolute 0.21 #; Lymphocytes # 0.9 10*3/uL (1.4-4.0); Lymphocytes % 5.7 % (21.3-54.2); Mean Corpuscular HGB Conc 32.5 GM/DL (32-36); Mean Corpuscular Hemoglobin 31 PG (27-34); Mean Corpuscular Volume 94.5 FL (87-102); Mean Platelet Volume 10.6 FL (9.6-12.0); Monocytes # 0.8 10*3/uL (0.11-0.8); Monocytes % 5.1 % (1.7-12.7); Neutrophils # 14.2 10*3/uL (1.4-7.4); Neutrophils % 87.7 % (38.7-73.9); PT Patient Result 15.6 SECS; Platelet Count 119 T/CUMM (130-400); Red Blood Count 3.09 MC/CUMM (3.8-5.5); Red Cell Distribution Width 21.1 % (9.3-17.3); White Blood Count 16.2 T/CUMM (4-12)
[2017-12-24 06:28] LABS: Osmolality,Calculated 273.1 MOS/KG (273-304); Potassium 3.8 MMOL/L (3.5-5.1)
[2017-12-24 06:32] LABS: Albumin 1.1 G/DL (3.4-5.0); Bilirubin,Total 0.7 MG/DL (0.2-1.0); Calcium 7.1 MG/DL (8.5-10.1); Osmolality,Calculated 273.1 MOS/KG (273-304); Potassium 3.7 MMOL/L (3.5-5.1); Total Protein 6.3 G/DL (6.4-8.3)
[2017-12-24] MEDS: HYDROmorphone 2 MG/1 ML VIAL IM PRN ×4 (08:39→22:07)
[2017-12-24] MEDS: INSULIN LISPRO 100 UNIT/ML SUBCUT SCH ×4 (08:39→22:08)
[2017-12-24] MEDS: MULTIVITAMIN (CENTRUM) TABLET PO SCH (08:40)
[2017-12-24] MEDS: CINACALCET 30 MG TABLET PO SCH (08:40)
[2017-12-24] MEDS: SODIUM BICARBONATE 650 MG TABLET PO SCH ×3 (08:40→22:01)
[2017-12-24] MEDS: ASPIRIN EC 81 MG TABLET PO SCH (08:40)
[2017-12-24] MEDS: HYDROXYCHLOROQUINE 200 MG TABLET PO SCH (08:40)
[2017-12-24] MEDS: SEVELAMER CARBONATE 800 MG TABLET PO SCH ×3 (08:40→16:21)
[2017-12-24] MEDS: LISINOPRIL 20 MG TABLET PO SCH (08:40)
[2017-12-24] MEDS: predniSONE 10 MG TABLET PO SCH ×2 (08:40→22:02)
[2017-12-24] MEDS: FERROUS GLUCONATE 324 MG TABLET PO SCH (08:41)
[2017-12-24] MEDS: PANTOPRAZOLE 40 MG TABLET PO SCH (08:41)
[2017-12-24] MEDS: SILVER SULFADIAZINE 1% CREAM 25 GM TUBE TOP SCH (17:00)
[2017-12-24] MEDS: SILVER SULFADIAZINE 1% CREAM 400 GM JAR TOP SCH (17:00)
[2017-12-24] MEDS: cefTRIAXone 1,000 MG in SODIUM CHLORIDE 0.9% 100 ML IV SCH (18:16)
[2017-12-24] MEDS: METOPROLOL SUCCINATE XL 50 MG TABLET PO SCH (22:02)
[2017-12-24] MEDS: INSULIN GLARGINE 100 UNIT/ML SUBCUT SCH (22:08)
[2017-12-25] MEDS ORDERED: BACITRACIN OINT 0.9 GM PACK TOP ONE (06:26)
[2017-12-25] MEDS ORDERED: SODIUM CHLORIDE 0.9% 250 ML IV SCH (07:00)
[2017-12-25] MEDS: SEVELAMER CARBONATE 800 MG TABLET PO SCH ×3 (07:46→16:29)
[2017-12-25] MEDS: INSULIN LISPRO 100 UNIT/ML SUBCUT SCH ×4 (07:46→21:34)
[2017-12-25] MEDS ORDERED: SILVER SULFADIAZINE 1% CREAM 400 GM JAR TOP ONE (07:59)
[2017-12-25] MEDS ORDERED: ceFAZolin 2,000 MG in PREMIX 1 EACH IV SCH (08:00)
[2017-12-25] MEDS ORDERED: SEVOFLURANE 1 UNIT/15 MINUTE INH ONE (09:09)
[2017-12-25] MEDS ORDERED: fentaNYL 100 MCG/2 ML VIAL ONE (09:10)
[2017-12-25] MEDS ORDERED: ePHEDrine 50 MG/ML AMP ONE (09:10)
[2017-12-25] MEDS ORDERED: MIDAZOLAM 2 MG/2 ML VIAL ONE (09:10)
[2017-12-25] MEDS ORDERED: PROPOFOL 200 MG/20 ML VIAL IV ONE (09:10)
[2017-12-25] MEDS ORDERED: GLYCOPYRROLATE 0.4 MG/2 ML VIAL ONE (09:11)
[2017-12-25] MEDS ORDERED: DEXAMETHASONE 10 MG/1 ML VIAL ONE (09:11)
[2017-12-25] MEDS ORDERED: ONDANSETRON 4 MG/2 ML VIAL ONE (09:11)
[2017-12-25] MEDS ORDERED: KETOROLAC 30 MG/1 ML VIAL ONE (09:11)
[2017-12-25] MEDS: HYDROXYCHLOROQUINE 200 MG TABLET PO SCH (09:35)
[2017-12-25] MEDS: PANTOPRAZOLE 40 MG TABLET PO SCH (09:36)
[2017-12-25] MEDS: FERROUS GLUCONATE 324 MG TABLET PO SCH (09:36)
[2017-12-25] MEDS: CINACALCET 30 MG TABLET PO SCH (09:36)
[2017-12-25] MEDS: predniSONE 10 MG TABLET PO SCH ×2 (09:36→21:34)
[2017-12-25] MEDS: ASPIRIN EC 81 MG TABLET PO SCH (09:36)
[2017-12-25] MEDS: MULTIVITAMIN (CENTRUM) TABLET PO SCH (09:36)
[2017-12-25] MEDS: LISINOPRIL 20 MG TABLET PO SCH (09:36)
[2017-12-25] MEDS: SODIUM BICARBONATE 650 MG TABLET PO SCH ×3 (09:36→21:34)
[2017-12-25] MEDS: SILVER SULFADIAZINE 1% CREAM 25 GM TUBE TOP SCH (09:37)
[2017-12-25] MEDS: SILVER SULFADIAZINE 1% CREAM 400 GM JAR TOP SCH (09:37)
[2017-12-25] MEDS: ceFAZolin 2,000 MG in PREMIX 1 EACH IV SCH ×2 (14:00→23:13)
[2017-12-25] MEDS: HYDROmorphone 2 MG/1 ML VIAL IM PRN ×2 (16:29→19:55)
[2017-12-25] MEDS: cefTRIAXone 1,000 MG in SODIUM CHLORIDE 0.9% 100 ML IV SCH (17:48)
[2017-12-25] MEDS: INSULIN GLARGINE 100 UNIT/ML SUBCUT SCH (21:32)
[2017-12-25] MEDS: METOPROLOL SUCCINATE XL 50 MG TABLET PO SCH (21:34)
[2017-12-25] MEDS: oxyCODONE/ACETAMINOPHEN 5-325 MG TABLET PO PRN (23:12)
[2017-12-26] MEDS: oxyCODONE/ACETAMINOPHEN 5-325 MG TABLET PO PRN ×3 (06:30→23:16)
[2017-12-26 07:05] LABS: Basophils % 0.1 % (0.0-0.8); Eosinophils % 0.3 % (0.00-10.9); Hematocrit 28.8 VOL% (35.7-47.0); Hemoglobin 9.4 GM/DL (12.0-16.0); Immature Granulocytes % 0.9 %; Immature Granulocytes Absolute 0.11 #; Lymphocytes # 0.9 10*3/uL (1.4-4.0); Lymphocytes % 8.1 % (21.3-54.2); Mean Corpuscular HGB Conc 32.6 GM/DL (32-36); Mean Corpuscular Hemoglobin 31 PG (27-34); Mean Corpuscular Volume 94.7 FL (87-102); Mean Platelet Volume 10.1 FL (9.6-12.0); Monocytes # 0.7 10*3/uL (0.11-0.8); Monocytes % 5.9 % (1.7-12.7); Neutrophils # 9.9 10*3/uL (1.4-7.4); Neutrophils % 84.7 % (38.7-73.9); Platelet Count 129 T/CUMM (130-400); Red Blood Count 3.04 MC/CUMM (3.8-5.5); Red Cell Distribution Width 20.8 % (9.3-17.3); White Blood Count 11.6 T/CUMM (4-12)
[2017-12-26 07:33] LABS: Calcium 6.3 MG/DL (8.5-10.1); Osmolality,Calculated 270.1 MOS/KG (273-304); Potassium 4.5 MMOL/L (3.5-5.1)
[2017-12-26] MEDS: INSULIN LISPRO 100 UNIT/ML SUBCUT SCH ×4 (07:53→21:25)
[2017-12-26] MEDS: HYDROXYCHLOROQUINE 200 MG TABLET PO SCH (08:10)
[2017-12-26] MEDS: SODIUM BICARBONATE 650 MG TABLET PO SCH ×3 (08:11→20:21)
[2017-12-26] MEDS: FERROUS GLUCONATE 324 MG TABLET PO SCH (08:11)
[2017-12-26] MEDS: MULTIVITAMIN (CENTRUM) TABLET PO SCH (08:11)
[2017-12-26] MEDS: SEVELAMER CARBONATE 800 MG TABLET PO SCH ×3 (08:11→16:27)
[2017-12-26] MEDS: ASPIRIN EC 81 MG TABLET PO SCH (08:11)
[2017-12-26] MEDS: PANTOPRAZOLE 40 MG TABLET PO SCH (08:11)
[2017-12-26] MEDS: LISINOPRIL 20 MG TABLET PO SCH (08:11)
[2017-12-26] MEDS: CINACALCET 30 MG TABLET PO SCH (08:11)
[2017-12-26] MEDS: predniSONE 10 MG TABLET PO SCH ×2 (08:11→20:21)
[2017-12-26] MEDS: SILVER SULFADIAZINE 1% CREAM 25 GM TUBE TOP SCH (08:13)
[2017-12-26] MEDS: SILVER SULFADIAZINE 1% CREAM 400 GM JAR TOP SCH (08:13)
[2017-12-26] MEDS ORDERED: LEVOFLOXACIN INJ 500 MG in PREMIX 1 EACH IV SCH ×2 (09:30→15:00)
[2017-12-26] MEDS: HYDROmorphone 2 MG/1 ML VIAL IM PRN (13:48)
[2017-12-26] MEDS ORDERED: VANCOMYCIN INJ 500 MG in SODIUM CHLORIDE 0.9% 100 ML IV ONE (15:00)
[2017-12-26] MEDS: AMPICILLIN INJ 2,000 MG in SODIUM CHLORIDE 0.9% 50 ML IV SCH (16:27)
[2017-12-26] MEDS: METOPROLOL SUCCINATE XL 50 MG TABLET PO SCH (20:21)
[2017-12-26] MEDS: INSULIN GLARGINE 100 UNIT/ML SUBCUT SCH (20:23)
[2017-12-27] MEDS ORDERED: ALUMINUM/MAGNES/SIMETH MAX STR 30 ML UDCUP PO PRN (04:37)
[2017-12-27] MEDS: AMPICILLIN INJ 2,000 MG in SODIUM CHLORIDE 0.9% 50 ML IV SCH (05:05)
[2017-12-27] MEDS: INSULIN LISPRO 100 UNIT/ML SUBCUT SCH ×2 (08:08→11:43)
[2017-12-27] MEDS ORDERED: SODIUM THIOSULFATE 12.5 GM/50 ML VIAL IV PRN (08:22)
[2017-12-27] MEDS ORDERED: PIPERACILLIN/TAZOBACTAM 3,375 MG in SODIUM CHLORIDE 0.9% 100 ML IV SCH (08:30)
[2017-12-27] MEDS: predniSONE 10 MG TABLET PO SCH (09:03)
[2017-12-27] MEDS: LISINOPRIL 20 MG TABLET PO SCH (09:03)
[2017-12-27] MEDS: oxyCODONE/ACETAMINOPHEN 5-325 MG TABLET PO PRN (09:03)
[2017-12-27] MEDS: SODIUM BICARBONATE 650 MG TABLET PO SCH ×2 (09:03→15:47)
[2017-12-27] MEDS: FERROUS GLUCONATE 324 MG TABLET PO SCH (09:03)
[2017-12-27] MEDS: SEVELAMER CARBONATE 800 MG TABLET PO SCH ×2 (09:03→11:51)
[2017-12-27] MEDS: PANTOPRAZOLE 40 MG TABLET PO SCH (09:03)
[2017-12-27] MEDS: HYDROXYCHLOROQUINE 200 MG TABLET PO SCH (09:03)
[2017-12-27] MEDS: MULTIVITAMIN (CENTRUM) TABLET PO SCH (09:03)
[2017-12-27] MEDS: SILVER SULFADIAZINE 1% CREAM 400 GM JAR TOP SCH ×2 (09:04→12:16)
[2017-12-27] MEDS: CINACALCET 30 MG TABLET PO SCH (09:04)
[2017-12-27] MEDS: ASPIRIN EC 81 MG TABLET PO SCH (09:04)
[2017-12-27] MEDS: SILVER SULFADIAZINE 1% CREAM 25 GM TUBE TOP SCH (09:04)
[2017-12-27 11:18] VITALS: BP 138/78
[2017-12-27] MEDS ORDERED: PERMETHRIN 1% LOTION 59 ML BOTTLE TOP ONE (11:51)
[2017-12-27] MEDS ORDERED: LEVOFLOXACIN INJ 250 MG in PREMIX 1 EACH IV SCH (15:00)
[2018-01-03] MEDS ORDERED: HEPARIN 10,000 UNIT/10 ML VIAL IV PRN (06:00)
== END 2017-12-27 15:45 | DRG 853 ==
LOC: N.ED 11:07 → N.EDINP 12:53 → SUATTDRO 12:53 → N.EDINP 17:15 → N.5E 17:42
PROVIDERS: ADMIT Internal Medicine; ATTEND Internal Medicine

== ENCOUNTER 2018-03-20 21:47 | Inpatient (IN) ==
[2018-03-20] MEDS ORDERED: ACETAMINOPHEN 325 MG TABLET PO PRN (23:23)
[2018-03-20] MEDS ORDERED: HYDROmorphone 2 MG/1 ML VIAL ONE (23:23)
[2018-03-20] MEDS ORDERED: POTASSIUM CHLORIDE RIDER 10 MEQ in PREMIX 1 EACH IV PRN (23:29)
[2018-03-20] MEDS ORDERED: HYDROmorphone 2 MG/1 ML VIAL IV PRN (23:30)
[2018-03-20] MEDS ORDERED: SODIUM CHLORIDE 0.9% 1,000 ML IV PRN (23:35)
[2018-03-20] MEDS ORDERED: LACTATED RINGERS 1,000 ML IV SCH (23:45)
[2018-03-21 00:51] LABS: Basophils # 0.1 10*3/uL (0.0-0.2); Basophils % 0.2 % (0.0-0.8); Hematocrit 22.5 VOL% (35.7-47.0); Hemoglobin 7.9 GM/DL (12.0-16.0); Immature Granulocytes % 2.5 %; Immature Granulocytes Absolute 0.62 #; Lymphocytes # 1.7 10*3/uL (1.4-4.0); Lymphocytes % 6.6 % (21.3-54.2); Mean Corpuscular HGB Conc 35.1 GM/DL (32-36); Mean Corpuscular Hemoglobin 33 PG (27-34); Mean Platelet Volume 10.7 FL (9.6-12.0); Monocytes # 2.2 10*3/uL (0.11-0.8); Monocytes % 8.5 % (1.7-12.7); Neutrophils # 20.8 10*3/uL (1.4-7.4); Neutrophils % 82.2 % (38.7-73.9); Platelet Count 128 T/CUMM (130-400); Red Blood Count 2.42 MC/CUMM (3.8-5.5); Red Cell Distribution Width 15.1 % (9.3-17.3); White Blood Count 25.3 T/CUMM (4-12)
[2018-03-21] MEDS: PANTOPRAZOLE 40 MG VIAL IV SCH (00:51)
[2018-03-21 01:21] LABS: Alanine Aminotransferase 25 U/L (13-56); Albumin 0.9 G/DL (3.4-5.0); Alkaline Phosphatase 301 U/L (45-117); Aspartate Amino Transferase 57 U/L (0-37); Blood Urea Nitrogen 5 MG/DL (7-18); Glucose 52 MG/DL (74-106); Osmolality,Calculated 272.4 MOS/KG (273-304); Potassium 2.6 MMOL/L (3.5-5.1); Sodium 140 MMOL/L (136-145); Total Protein 5.1 G/DL (6.4-8.3)
[2018-03-21 01:23] LABS: Lactic Acid 3.6 MMOL/L (0.4-2.0)
[2018-03-21] MEDS ORDERED: ALBUMIN 25% 50 GM in PREMIX 1 EACH IV ONE ×2 (01:54→12:00)
[2018-03-21] MEDS: POTASSIUM CHLORIDE RIDER 20 MEQ in PREMIX 1 EACH IV PRN ×4 (02:36→14:04)
[2018-03-21] MEDS: PIPERACILLIN/TAZOBACTAM 3,375 MG in SODIUM CHLORIDE 0.9% 100 ML IV SCH ×3 (02:37→18:34)
[2018-03-21] MEDS: DEXTROSE 5% LACTATED RINGERS 1,000 ML IV SCH ×2 (02:41→18:46)
[2018-03-21 02:45] LABS: Band Neutrophils 4 % (0-10); Lymphocytes 6 % (20-55); Macrocytosis 1+; Platelet Estimate Normal; Segmented Neutrophils 84 % (50-85); Total Cells Counted 100
[2018-03-21] MEDS: DEXTROSE 50% 25 GM/50 ML VIAL IV PRN (03:45)
[2018-03-21] MEDS ORDERED: SODIUM THIOSULFATE IV SCH (09:00)
[2018-03-21 09:52] LABS: Hematocrit 25.8 VOL% (35.7-47.0)
[2018-03-21] MEDS ORDERED: SILVER SULFADIAZINE 1% CREAM 25 GM TUBE TOP SCH (10:00)
[2018-03-21] MEDS ORDERED: EPOETIN ALFA 2,000 UNIT/1 ML VIAL IV PRN (10:08)
[2018-03-21] MEDS: DOCUSATE SODIUM 100 MG CAPSULE PO SCH ×2 (10:44→21:12)
[2018-03-21] MEDS: SEVELAMER CARBONATE 800 MG TABLET PO SCH ×2 (12:52→18:34)
[2018-03-21] MEDS ORDERED: SODIUM THIOSULFATE IV ONE (14:30)
[2018-03-21 17:14] LABS: Prealbumin 4.1 MG/DL (20-40); Thyroid Stimulating Hormone 2.45 uIU/ml (0.358-3.74)
[2018-03-21] MEDS: SILVER SULFADIAZINE 1% CREAM 400 GM JAR TOP SCH (18:14)
[2018-03-21] MEDS: HYDROmorphone 2 MG/1 ML VIAL IV PRN (18:35)
[2018-03-21] MEDS ORDERED: VANCOMYCIN INJ 750 MG in SODIUM CHLORIDE 0.9% 250 ML IV PRN (19:00)
[2018-03-21] MEDS: predniSONE 10 MG TABLET PO SCH (21:12)
[2018-03-22] MEDS: PANTOPRAZOLE 40 MG VIAL IV SCH ×2 (01:29→23:50)
[2018-03-22] MEDS: DEXTROSE 50% 25 GM/50 ML VIAL IV PRN (01:29)
[2018-03-22] MEDS: PIPERACILLIN/TAZOBACTAM 3,375 MG in SODIUM CHLORIDE 0.9% 100 ML IV SCH ×3 (01:33→18:40)
[2018-03-22 06:06] LABS: Basophils # 0.1 10*3/uL (0.0-0.2); Basophils % 0.3 % (0.0-0.8); Eosinophils # 0.2 10*3/uL (0.0-0.87); Eosinophils % 0.7 % (0.00-10.9); Hematocrit 26.1 VOL% (35.7-47.0); Hemoglobin 9.1 GM/DL (12.0-16.0); Immature Granulocytes % 1.5 %; Lymphocytes # 2.6 10*3/uL (1.4-4.0); Lymphocytes % 10.1 % (21.3-54.2); Mean Corpuscular HGB Conc 34.9 GM/DL (32-36); Mean Corpuscular Hemoglobin 32 PG (27-34); Mean Corpuscular Volume 90.9 FL (87-102); Mean Platelet Volume 9.9 FL (9.6-12.0); Monocytes # 2.5 10*3/uL (0.11-0.8); Monocytes % 9.6 % (1.7-12.7); NRBC # 0.02 10*3/uL; Neutrophils # 20.2 10*3/uL (1.4-7.4); Neutrophils % 77.8 % (38.7-73.9); Platelet Count 95 T/CUMM (130-400); Red Blood Count 2.87 MC/CUMM (3.8-5.5); Red Cell Distribution Width 16.9 % (9.3-17.3); White Blood Count 25.9 T/CUMM (4-12)
[2018-03-22] MEDS: DEXTROSE 5% LACTATED RINGERS 1,000 ML IV SCH ×2 (06:10→20:53)
[2018-03-22 06:27] LABS: Eosinophils 1 % (0-10); Hypochromasia 1+; Lymphocytes 10 % (20-55); Metamyelocytes 1 %; Segmented Neutrophils 81 % (50-85); Total Cells Counted 100
[2018-03-22 06:28] LABS: Anisocytosis 1+; Microcytosis 1+; Polychromasia Slight; Target Cells Slight
[2018-03-22 06:29] LABS: Calcium 8.1 MG/DL (8.5-10.1); Free T4 (Free Thyroxine) 0.76 NG/DL (0.76-1.46); Platelet Estimate Decreased; Potassium 3.7 MMOL/L (3.5-5.1)
[2018-03-22] MEDS: SEVELAMER CARBONATE 800 MG TABLET PO SCH ×3 (07:50→18:40)
[2018-03-22] MEDS: HYDROmorphone 2 MG/1 ML VIAL IV PRN ×2 (08:03→18:40)
[2018-03-22] MEDS: CINACALCET 30 MG TABLET PO SCH (08:09)
[2018-03-22] MEDS: DOCUSATE SODIUM 100 MG CAPSULE PO SCH ×2 (08:09→21:52)
[2018-03-22] MEDS: predniSONE 10 MG TABLET PO SCH ×2 (08:09→21:52)
[2018-03-22] MEDS ORDERED: SODIUM THIOSULFATE 12.5 GM/50 ML VIAL IV SCH (09:00)
[2018-03-22] MEDS ORDERED: HEPARIN 10,000 UNIT/10 ML VIAL IV SCH (16:30)
[2018-03-22] MEDS: HYDROmorphone 2 MG TABLET PO PRN (19:43)
[2018-03-22] MEDS: SILVER SULFADIAZINE 1% CREAM 400 GM JAR TOP SCH (19:50)
[2018-03-22] MEDS ORDERED: VANCOMYCIN INJ 750 MG in SODIUM CHLORIDE 0.9% 250 ML IV ONE (21:00)
[2018-03-23] MEDS: PIPERACILLIN/TAZOBACTAM 3,375 MG in SODIUM CHLORIDE 0.9% 100 ML IV SCH ×3 (01:51→18:37)
[2018-03-23 04:43] LABS: Basophils # 0.1 10*3/uL (0.0-0.2); Basophils % 0.3 % (0.0-0.8); Hemoglobin 9.2 GM/DL (12.0-16.0); Immature Granulocytes % 1.4 %; Immature Granulocytes Absolute 0.31 #; Lymphocytes # 1.6 10*3/uL (1.4-4.0); Lymphocytes % 7.4 % (21.3-54.2); Mean Corpuscular HGB Conc 32.9 GM/DL (32-36); Mean Corpuscular Hemoglobin 31 PG (27-34); Mean Corpuscular Volume 94.6 FL (87-102); Mean Platelet Volume 10.6 FL (9.6-12.0); Monocytes # 1.5 10*3/uL (0.11-0.8); Monocytes % 6.6 % (1.7-12.7); Neutrophils # 18.6 10*3/uL (1.4-7.4); Neutrophils % 84.3 % (38.7-73.9); Platelet Count 79 T/CUMM (130-400); Red Blood Count 2.96 MC/CUMM (3.8-5.5); Red Cell Distribution Width 16.6 % (9.3-17.3); White Blood Count 22.1 T/CUMM (4-12)
[2018-03-23 05:08] LABS: Calcium 7.7 MG/DL (8.5-10.1)
[2018-03-23 05:09] LABS: Osmolality,Calculated 276.8 MOS/KG (273-304)
[2018-03-23 05:50] LABS: Band Neutrophils 6 % (0-10); Hypochromasia 1+; Lymphocytes 5 % (20-55); Segmented Neutrophils 83 % (50-85); Target Cells Slight; Total Cells Counted 100
[2018-03-23 05:51] LABS: Anisocytosis 1+; Microcytosis 1+; Ovalocytes Slight; Platelet Estimate Decreased
[2018-03-23] MEDS: SEVELAMER CARBONATE 800 MG TABLET PO SCH ×3 (09:12→18:10)
[2018-03-23] MEDS: CINACALCET 30 MG TABLET PO SCH (09:13)
[2018-03-23] MEDS: predniSONE 10 MG TABLET PO SCH ×2 (09:13→20:11)
[2018-03-23] MEDS: oxyCODONE/ACETAMINOPHEN 5-325 MG TABLET PO PRN ×3 (09:18→20:11)
[2018-03-23] MEDS: DOCUSATE SODIUM 100 MG CAPSULE PO SCH ×2 (10:17→20:11)
[2018-03-23] MEDS: SODIUM THIOSULFATE IV SCH (10:17)
[2018-03-23] MEDS: HYDROmorphone 2 MG TABLET PO PRN (11:28)
[2018-03-23] MEDS: ONDANSETRON 4 MG/2 ML VIAL IV PRN ×2 (12:28→17:55)
[2018-03-23] MEDS: SILVER SULFADIAZINE 1% CREAM 400 GM JAR TOP SCH (13:15)
[2018-03-23] MEDS: DEXTROSE 5% LACTATED RINGERS 1,000 ML IV SCH (16:30)
[2018-03-23] MEDS: PANTOPRAZOLE 40 MG VIAL IV SCH (23:30)
[2018-03-24] MEDS: oxyCODONE/ACETAMINOPHEN 5-325 MG TABLET PO PRN ×3 (01:52→20:56)
[2018-03-24] MEDS: PIPERACILLIN/TAZOBACTAM 3,375 MG in SODIUM CHLORIDE 0.9% 100 ML IV SCH (01:52)
[2018-03-24] MEDS: DEXTROSE 5% LACTATED RINGERS 1,000 ML IV SCH (06:41)
[2018-03-24] MEDS: SEVELAMER CARBONATE 800 MG TABLET PO SCH ×3 (08:42→20:35)
[2018-03-24] MEDS: CINACALCET 30 MG TABLET PO SCH (08:42)
[2018-03-24] MEDS: DOCUSATE SODIUM 100 MG CAPSULE PO SCH ×2 (08:42→20:37)
[2018-03-24] MEDS: predniSONE 10 MG TABLET PO SCH ×2 (08:43→20:56)
[2018-03-24] MEDS: SODIUM THIOSULFATE IV SCH (12:51)
[2018-03-24] MEDS: cefTAZidime 1,000 MG in SYRINGE 1 EACH IV SCH (13:03)
[2018-03-24] MEDS: ONDANSETRON 4 MG/2 ML VIAL IV PRN ×2 (13:14→18:56)
[2018-03-24] MEDS: SILVER SULFADIAZINE 1% CREAM 400 GM JAR TOP SCH (14:15)
[2018-03-24] MEDS: LINEZOLID INJ 600 MG in PREMIX 1 EACH IV SCH (17:17)
[2018-03-24] MEDS: PANTOPRAZOLE 40 MG VIAL IV SCH (23:55)
[2018-03-25] MEDS: LINEZOLID INJ 600 MG in PREMIX 1 EACH IV SCH ×2 (04:44→15:19)
[2018-03-25] MEDS: oxyCODONE/ACETAMINOPHEN 5-325 MG TABLET PO PRN ×3 (04:44→21:27)
[2018-03-25 07:28] LABS: Basophils % 0.2 % (0.0-0.8); Hematocrit 28.1 VOL% (35.7-47.0); Hemoglobin 9.9 GM/DL (12.0-16.0); Immature Granulocytes % 1.9 %; Immature Granulocytes Absolute 0.29 #; Lymphocytes % 13.4 % (21.3-54.2); Mean Corpuscular HGB Conc 35.2 GM/DL (32-36); Mean Corpuscular Hemoglobin 32 PG (27-34); Mean Corpuscular Volume 91.2 FL (87-102); Mean Platelet Volume 11.9 FL (9.6-12.0); Monocytes # 1.2 10*3/uL (0.11-0.8); Monocytes % 8.2 % (1.7-12.7); Neutrophils # 11.5 10*3/uL (1.4-7.4); Neutrophils % 76.3 % (38.7-73.9); Red Blood Count 3.08 MC/CUMM (3.8-5.5); Red Cell Distribution Width 16.2 % (9.3-17.3)
[2018-03-25 07:30] LABS: Platelet Count 61 T/CUMM (130-400)
[2018-03-25 07:50] LABS: Hypochromasia Slight; Lymphocytes 12 % (20-55); Ovalocytes Slight; Platelet Estimate Decreased; Segmented Neutrophils 81 % (50-85); Total Cells Counted 100
[2018-03-25 07:51] LABS: Microcytosis Slight
[2018-03-25 08:01] LABS: Calcium 7.7 MG/DL (8.5-10.1); Osmolality,Calculated 284.4 MOS/KG (273-304)
[2018-03-25] MEDS: ONDANSETRON 4 MG/2 ML VIAL IV PRN (08:26)
[2018-03-25] MEDS: HYDROmorphone 2 MG TABLET PO PRN (08:26)
[2018-03-25] MEDS: predniSONE 10 MG TABLET PO SCH ×2 (08:27→20:18)
[2018-03-25] MEDS: CINACALCET 30 MG TABLET PO SCH (08:27)
[2018-03-25] MEDS: SEVELAMER CARBONATE 800 MG TABLET PO SCH ×3 (08:27→16:15)
[2018-03-25] MEDS: DOCUSATE SODIUM 100 MG CAPSULE PO SCH ×2 (08:27→20:18)
[2018-03-25] MEDS: SILVER SULFADIAZINE 1% CREAM 400 GM JAR TOP SCH (08:30)
[2018-03-25] MEDS: cefTAZidime 1,000 MG in SYRINGE 1 EACH IV SCH (12:28)
[2018-03-25] MEDS ORDERED: MAGNESIUM SULF RIDER 2 GM in PREMIX 1 EACH IV ONE (15:00)
[2018-03-25] MEDS: DEXTROSE 5% LACTATED RINGERS 1,000 ML IV SCH ×3 (15:14→22:42)
[2018-03-25] MEDS ORDERED: MAGNESIUM SULF RIDER 1 GM in PREMIX 1 EACH IV ONE (17:00)
[2018-03-25] MEDS: HYDROmorphone 2 MG/1 ML VIAL IV PRN (20:16)
[2018-03-25] MEDS: PANTOPRAZOLE 40 MG VIAL IV SCH (22:39)
[2018-03-26] MEDS: HYDROmorphone 2 MG TABLET PO PRN (01:28)
[2018-03-26] MEDS: LINEZOLID INJ 600 MG in PREMIX 1 EACH IV SCH ×2 (03:16→16:51)
[2018-03-26 05:16] LABS: Basophils % 0.2 % (0.0-0.8); Hematocrit 28.2 VOL% (35.7-47.0); Hemoglobin 9.7 GM/DL (12.0-16.0); Immature Granulocytes % 1.5 %; Immature Granulocytes Absolute 0.24 #; Lymphocytes # 1.3 10*3/uL (1.4-4.0); Lymphocytes % 8.2 % (21.3-54.2); Mean Corpuscular HGB Conc 34.4 GM/DL (32-36); Mean Corpuscular Hemoglobin 32 PG (27-34); Mean Corpuscular Volume 91.9 FL (87-102); Mean Platelet Volume 10.9 FL (9.6-12.0); Neutrophils # 13.2 10*3/uL (1.4-7.4); Neutrophils % 84.1 % (38.7-73.9); Red Blood Count 3.07 MC/CUMM (3.8-5.5); Red Cell Distribution Width 16.9 % (9.3-17.3); White Blood Count 15.7 T/CUMM (4-12)
[2018-03-26 05:17] LABS: Platelet Count 58 T/CUMM (130-400)
[2018-03-26 05:36] LABS: Calcium 7.6 MG/DL (8.5-10.1); Potassium 4.2 MMOL/L (3.5-5.1)
[2018-03-26] MEDS: oxyCODONE/ACETAMINOPHEN 5-325 MG TABLET PO PRN ×2 (05:56→21:52)
[2018-03-26 06:09] LABS: Band Neutrophils 1 % (0-10); Eosinophils 1 % (0-10); Hypochromasia 1+; Lymphocytes 7 % (20-55); Microcytosis 1+; Segmented Neutrophils 84 % (50-85); Total Cells Counted 100
[2018-03-26 06:10] LABS: Platelet Estimate Decreased
[2018-03-26] MEDS: SILVER SULFADIAZINE 1% CREAM 400 GM JAR TOP SCH (09:15)
[2018-03-26] MEDS: CINACALCET 30 MG TABLET PO SCH (09:15)
[2018-03-26] MEDS: predniSONE 10 MG TABLET PO SCH ×2 (09:15→21:05)
[2018-03-26] MEDS: DOCUSATE SODIUM 100 MG CAPSULE PO SCH ×2 (09:15→21:05)
[2018-03-26] MEDS: SEVELAMER CARBONATE 800 MG TABLET PO SCH ×3 (09:15→16:51)
[2018-03-26] MEDS: HYDROmorphone 2 MG/1 ML VIAL IV PRN ×2 (11:30→14:51)
[2018-03-26] MEDS: DEXTROSE 5% LACTATED RINGERS 1,000 ML IV SCH (12:33)
[2018-03-26] MEDS: MEROPENEM 500 MG in SYRINGE 1 EACH IV SCH (12:33)
[2018-03-27] MEDS: PANTOPRAZOLE 40 MG VIAL IV SCH ×2 (00:21→23:25)
[2018-03-27] MEDS: DEXTROSE 5% LACTATED RINGERS 1,000 ML IV SCH ×2 (00:24→16:22)
[2018-03-27] MEDS: LINEZOLID INJ 600 MG in PREMIX 1 EACH IV SCH ×2 (05:20→16:55)
[2018-03-27] MEDS: oxyCODONE/ACETAMINOPHEN 5-325 MG TABLET PO PRN ×2 (05:24→20:34)
[2018-03-27 06:35] LABS: Basophils % 0.2 % (0.0-0.8); Hematocrit 28.9 VOL% (35.7-47.0); Hemoglobin 9.9 GM/DL (12.0-16.0); Immature Granulocytes % 1.3 %; Immature Granulocytes Absolute 0.19 #; Lymphocytes # 1.7 10*3/uL (1.4-4.0); Mean Corpuscular HGB Conc 34.3 GM/DL (32-36); Mean Corpuscular Hemoglobin 32 PG (27-34); Mean Corpuscular Volume 93.2 FL (87-102); Monocytes # 0.8 10*3/uL (0.11-0.8); Monocytes % 5.3 % (1.7-12.7); Neutrophils # 11.5 10*3/uL (1.4-7.4); Neutrophils % 81.2 % (38.7-73.9); Platelet Count 56 T/CUMM (130-400); White Blood Count 14.1 T/CUMM (4-12)
[2018-03-27 06:54] LABS: Platelet Estimate Decreased
[2018-03-27 06:56] LABS: Hypochromasia Slight; Microcytosis Slight
[2018-03-27 07:01] LABS: Calcium 7.4 MG/DL (8.5-10.1); Osmolality,Calculated 283.4 MOS/KG (273-304); Potassium 4.3 MMOL/L (3.5-5.1)
[2018-03-27] MEDS: MEROPENEM 500 MG in SYRINGE 1 EACH IV SCH (10:34)
[2018-03-27] MEDS: HYDROmorphone 2 MG TABLET PO PRN (10:34)
[2018-03-27] MEDS: predniSONE 10 MG TABLET PO SCH ×2 (10:35→20:34)
[2018-03-27] MEDS: SEVELAMER CARBONATE 800 MG TABLET PO SCH ×3 (10:35→16:56)
[2018-03-27] MEDS: CINACALCET 30 MG TABLET PO SCH (10:35)
[2018-03-27] MEDS: DOCUSATE SODIUM 100 MG CAPSULE PO SCH ×2 (10:35→20:34)
[2018-03-27] MEDS: SILVER SULFADIAZINE 1% CREAM 400 GM JAR TOP SCH (10:38)
[2018-03-27] MEDS ORDERED: GLUCAGON 1 MG VIAL IM PRN (12:25)
[2018-03-27] MEDS ORDERED: DEXTROSE 50% 25 GM/50 ML VIAL IV PRN (12:25)
[2018-03-27] MEDS: HYDROmorphone 2 MG/1 ML VIAL IV PRN (16:50)
[2018-03-27] MEDS: INSULIN LISPRO 100 UNIT/ML SUBCUT SCH ×2 (17:07→20:35)
[2018-03-27] MEDS: SODIUM THIOSULFATE IV SCH (20:16)
[2018-03-27] MEDS: ONDANSETRON 4 MG/2 ML VIAL IV PRN (22:01)
[2018-03-28] MEDS: DEXTROSE 5% LACTATED RINGERS 1,000 ML IV SCH (03:35)
[2018-03-28] MEDS: oxyCODONE/ACETAMINOPHEN 5-325 MG TABLET PO PRN (03:36)
[2018-03-28] MEDS: LINEZOLID INJ 600 MG in PREMIX 1 EACH IV SCH ×2 (03:37→18:00)
[2018-03-28 04:44] LABS: Basophils % 0.2 % (0.0-0.8); Hematocrit 28.8 VOL% (35.7-47.0); Hemoglobin 10.2 GM/DL (12.0-16.0); Immature Granulocytes % 1.7 %; Lymphocytes # 1.7 10*3/uL (1.4-4.0); Lymphocytes % 14.1 % (21.3-54.2); Mean Corpuscular HGB Conc 35.4 GM/DL (32-36); Mean Corpuscular Hemoglobin 33 PG (27-34); Mean Corpuscular Volume 92.6 FL (87-102); Mean Platelet Volume 11.5 FL (9.6-12.0); Monocytes # 0.8 10*3/uL (0.11-0.8); Monocytes % 6.7 % (1.7-12.7); NRBC # 0.02 10*3/uL; Neutrophils # 9.1 10*3/uL (1.4-7.4); Neutrophils % 77.3 % (38.7-73.9); Platelet Count 63 T/CUMM (130-400); Red Blood Count 3.11 MC/CUMM (3.8-5.5); Red Cell Distribution Width 19.3 % (9.3-17.3); White Blood Count 11.7 T/CUMM (4-12)
[2018-03-28 05:07] LABS: Hypochromasia 1+; Platelet Estimate Decreased; Target Cells Few
[2018-03-28 05:09] LABS: Microcytosis Slight
[2018-03-28 05:16] LABS: Calcium 7.4 MG/DL (8.5-10.1); Osmolality,Calculated 279.7 MOS/KG (273-304); Potassium 3.9 MMOL/L (3.5-5.1)
[2018-03-28] MEDS: MORPHINE 4 MG/1 ML VIAL IV SCH ×5 (07:24→22:52)
[2018-03-28] MEDS: INSULIN LISPRO 100 UNIT/ML SUBCUT SCH ×4 (08:58→21:08)
[2018-03-28] MEDS: SEVELAMER CARBONATE 800 MG TABLET PO SCH ×3 (09:46→18:17)
[2018-03-28] MEDS: DOCUSATE SODIUM 100 MG CAPSULE PO SCH ×2 (09:46→21:09)
[2018-03-28] MEDS: predniSONE 10 MG TABLET PO SCH ×2 (09:47→21:09)
[2018-03-28] MEDS: MEROPENEM 500 MG in SYRINGE 1 EACH IV SCH (09:48)
[2018-03-28] MEDS: ONDANSETRON 4 MG/2 ML VIAL IV PRN (12:35)
[2018-03-28] MEDS: SILVER SULFADIAZINE 1% CREAM 400 GM JAR TOP SCH (12:41)
[2018-03-28] MEDS: PANTOPRAZOLE 40 MG VIAL IV SCH (22:48)
[2018-03-29] MEDS: LINEZOLID INJ 600 MG in PREMIX 1 EACH IV SCH ×2 (05:05→18:35)
[2018-03-29] MEDS: MORPHINE 4 MG/1 ML VIAL IV SCH ×6 (05:16→23:32)
[2018-03-29] MEDS: predniSONE 10 MG TABLET PO SCH ×2 (09:21→20:45)
[2018-03-29] MEDS: SEVELAMER CARBONATE 800 MG TABLET PO SCH ×3 (09:21→18:26)
[2018-03-29] MEDS: INSULIN LISPRO 100 UNIT/ML SUBCUT SCH ×4 (09:21→20:44)
[2018-03-29] MEDS: DOCUSATE SODIUM 100 MG CAPSULE PO SCH ×2 (09:22→20:45)
[2018-03-29] MEDS: MEROPENEM 500 MG in SYRINGE 1 EACH IV SCH (09:23)
[2018-03-29] MEDS: SILVER SULFADIAZINE 1% CREAM 400 GM JAR TOP SCH (13:45)
[2018-03-29] MEDS: SODIUM THIOSULFATE IV SCH (20:24)
[2018-03-29] MEDS: PANTOPRAZOLE 40 MG VIAL IV SCH (23:36)
[2018-03-30] MEDS: MORPHINE 4 MG/1 ML VIAL IV SCH ×5 (03:58→21:28)
[2018-03-30] MEDS: LINEZOLID INJ 600 MG in PREMIX 1 EACH IV SCH ×2 (04:05→18:03)
[2018-03-30 06:39] LABS: Basophils % 0.1 % (0.0-0.8); Hematocrit 28.1 VOL% (35.7-47.0); Hemoglobin 9.5 GM/DL (12.0-16.0); Mean Corpuscular HGB Conc 33.8 GM/DL (32-36); Mean Corpuscular Hemoglobin 33 PG (27-34); Mean Corpuscular Volume 96.6 FL (87-102); Monocytes # 0.7 10*3/uL (0.11-0.8); Monocytes % 6.8 % (1.7-12.7); Neutrophils # 7.3 10*3/uL (1.4-7.4); Neutrophils % 72.1 % (38.7-73.9); Platelet Count 59 T/CUMM (130-400); Red Blood Count 2.91 MC/CUMM (3.8-5.5); Red Cell Distribution Width 20.3 % (9.3-17.3); White Blood Count 10.1 T/CUMM (4-12)
[2018-03-30 07:06] LABS: Bilirubin,Total 1.3 MG/DL (0.2-1.0); Calcium 7.2 MG/DL (8.5-10.1); Osmolality,Calculated 276.4 MOS/KG (273-304); Potassium 3.9 MMOL/L (3.5-5.1); Total Protein 5.2 G/DL (6.4-8.3)
[2018-03-30 07:15] LABS: Burr Cells 1+; Hypochromasia Slight; Macrocytosis 1+; Platelet Estimate Decreased
[2018-03-30] MEDS: INSULIN LISPRO 100 UNIT/ML SUBCUT SCH ×4 (08:30→21:27)
[2018-03-30] MEDS: SEVELAMER CARBONATE 800 MG TABLET PO SCH ×3 (13:27→17:53)
[2018-03-30] MEDS: MEROPENEM 500 MG in SYRINGE 1 EACH IV SCH (14:11)
[2018-03-30] MEDS: DOCUSATE SODIUM 100 MG CAPSULE PO SCH ×2 (14:11→21:28)
[2018-03-30] MEDS: predniSONE 10 MG TABLET PO SCH ×2 (14:11→21:28)
[2018-03-30] MEDS: SILVER SULFADIAZINE 1% CREAM 400 GM JAR TOP SCH (14:11)
[2018-03-31] MEDS: PANTOPRAZOLE 40 MG VIAL IV SCH ×2 (00:38→22:54)
[2018-03-31] MEDS: MORPHINE 4 MG/1 ML VIAL IV SCH ×7 (00:38→22:54)
[2018-03-31] MEDS: LINEZOLID INJ 600 MG in PREMIX 1 EACH IV SCH ×2 (03:21→17:07)
[2018-03-31] MEDS: MEROPENEM 500 MG in SYRINGE 1 EACH IV SCH (10:11)
[2018-03-31] MEDS: INSULIN LISPRO 100 UNIT/ML SUBCUT SCH ×4 (10:11→20:44)
[2018-03-31] MEDS: DOCUSATE SODIUM 100 MG CAPSULE PO SCH ×2 (10:12→20:44)
[2018-03-31] MEDS: predniSONE 10 MG TABLET PO SCH ×2 (10:12→20:44)
[2018-03-31] MEDS: SEVELAMER CARBONATE 800 MG TABLET PO SCH ×3 (10:12→17:09)
[2018-03-31] MEDS: SILVER SULFADIAZINE 1% CREAM 400 GM JAR TOP SCH (13:18)
[2018-03-31] MEDS: SODIUM THIOSULFATE IV SCH (17:47)
[2018-04-01] MEDS: LINEZOLID INJ 600 MG in PREMIX 1 EACH IV SCH ×2 (03:12→15:27)
[2018-04-01] MEDS: MORPHINE 4 MG/1 ML VIAL IV SCH ×6 (03:12→23:24)
[2018-04-01] MEDS: INSULIN LISPRO 100 UNIT/ML SUBCUT SCH ×4 (09:05→21:13)
[2018-04-01] MEDS: DOCUSATE SODIUM 100 MG CAPSULE PO SCH ×2 (09:06→21:12)
[2018-04-01] MEDS: predniSONE 10 MG TABLET PO SCH ×2 (09:06→21:12)
[2018-04-01] MEDS: MEROPENEM 500 MG in SYRINGE 1 EACH IV SCH (09:06)
[2018-04-01] MEDS: SEVELAMER CARBONATE 800 MG TABLET PO SCH ×2 (09:06→11:56)
[2018-04-01] MEDS: SILVER SULFADIAZINE 1% CREAM 400 GM JAR TOP SCH (11:00)
[2018-04-01] MEDS: ONDANSETRON 4 MG/2 ML VIAL IV PRN (15:27)
[2018-04-01] MEDS: oxyCODONE/ACETAMINOPHEN 5-325 MG TABLET PO PRN (17:35)
[2018-04-01] MEDS: INSULIN GLARGINE 100 UNIT/ML SUBCUT SCH (21:12)
[2018-04-01] MEDS: PANTOPRAZOLE 40 MG VIAL IV SCH (23:24)
[2018-04-02] MEDS: MORPHINE 4 MG/1 ML VIAL IV SCH ×5 (03:31→20:54)
[2018-04-02] MEDS: LINEZOLID INJ 600 MG in PREMIX 1 EACH IV SCH ×2 (03:31→18:28)
[2018-04-02] MEDS: INSULIN LISPRO 100 UNIT/ML SUBCUT SCH ×4 (11:15→22:46)
[2018-04-02] MEDS: DOCUSATE SODIUM 100 MG CAPSULE PO SCH ×2 (14:43→22:45)
[2018-04-02] MEDS: predniSONE 10 MG TABLET PO SCH ×2 (14:43→22:45)
[2018-04-02] MEDS: MEROPENEM 500 MG in SYRINGE 1 EACH IV SCH (14:47)
[2018-04-02] MEDS: SILVER SULFADIAZINE 1% CREAM 400 GM JAR TOP SCH (20:54)
[2018-04-02] MEDS: INSULIN GLARGINE 100 UNIT/ML SUBCUT SCH (22:45)
[2018-04-02] MEDS: PANTOPRAZOLE 40 MG VIAL IV SCH (22:46)
[2018-04-03] MEDS: MORPHINE 4 MG/1 ML VIAL IV SCH ×6 (00:33→21:46)
[2018-04-03] MEDS: LINEZOLID INJ 600 MG in PREMIX 1 EACH IV SCH ×2 (04:03→15:52)
[2018-04-03] MEDS: INSULIN LISPRO 100 UNIT/ML SUBCUT SCH ×4 (08:09→21:50)
[2018-04-03] MEDS: SILVER SULFADIAZINE 1% CREAM 400 GM JAR TOP SCH (08:51)
[2018-04-03] MEDS: DOCUSATE SODIUM 100 MG CAPSULE PO SCH ×2 (11:22→21:51)
[2018-04-03] MEDS: predniSONE 10 MG TABLET PO SCH ×2 (11:22→21:51)
[2018-04-03] MEDS: MEROPENEM 500 MG in SYRINGE 1 EACH IV SCH (11:22)
[2018-04-03] MEDS: SODIUM THIOSULFATE IV SCH (18:18)
[2018-04-03] MEDS ORDERED: GENTAMICIN INJ 100 MG in PREMIX 1 EACH IV PRN (18:40)
[2018-04-03] MEDS: PIPERACILLIN/TAZOBACTAM 3,375 MG in SODIUM CHLORIDE 0.9% 100 ML IV SCH (19:01)
[2018-04-03] MEDS: INSULIN GLARGINE 100 UNIT/ML SUBCUT SCH (21:50)
[2018-04-03] MEDS ORDERED: GENTAMICIN INJ 120 MG in PREMIX 1 EACH IV ONE (22:00)
[2018-04-04] MEDS: MORPHINE 4 MG/1 ML VIAL IV SCH ×5 (01:03→16:46)
[2018-04-04] MEDS: PANTOPRAZOLE 40 MG VIAL IV SCH (01:06)
[2018-04-04] MEDS: LINEZOLID INJ 600 MG in PREMIX 1 EACH IV SCH ×2 (03:00→17:22)
[2018-04-04] MEDS: PIPERACILLIN/TAZOBACTAM 3,375 MG in SODIUM CHLORIDE 0.9% 100 ML IV SCH ×2 (05:43→17:23)
[2018-04-04] MEDS: INSULIN LISPRO 100 UNIT/ML SUBCUT SCH ×3 (07:49→16:47)
[2018-04-04] MEDS: SILVER SULFADIAZINE 1% CREAM 400 GM JAR TOP SCH (10:17)
[2018-04-04] MEDS: HYDROmorphone 2 MG TABLET PO PRN (10:17)
[2018-04-04] MEDS: DOCUSATE SODIUM 100 MG CAPSULE PO SCH (12:05)
[2018-04-04] MEDS: predniSONE 10 MG TABLET PO SCH (12:06)
[2018-04-04 16:23] VITALS: BP 96/61
== END 2018-04-04 19:30 | DRG 871 ==
LOC: SUATTDRO 22:26 → N.CC 23:14 → N.3E 03-25 16:40
PROVIDERS: ADMIT Internal Medicine; ATTEND Internal Medicine Geriatric Medicine

== ENCOUNTER 2018-06-08 13:45 | Inpatient (IN) ==
[2018-06-08 15:22] LABS: Basophils % 0.2 % (0.0-0.8); Eosinophils % 0.1 % (0.00-10.9); Hemoglobin 9.4 GM/DL (12.0-16.0); Immature Granulocytes % 0.6 %; Lymphocytes # 1.4 10*3/uL (1.4-4.0); Lymphocytes % 8.1 % (21.3-54.2); Mean Corpuscular HGB Conc 32.4 GM/DL (32-36); Mean Corpuscular Hemoglobin 34 PG (27-34); Mean Corpuscular Volume 103.6 FL (87-102); Mean Platelet Volume 9.7 FL (9.6-12.0); Monocytes % 6.3 % (1.7-12.7); Neutrophils # 14.1 10*3/uL (1.4-7.4); Neutrophils % 84.7 % (38.7-73.9); Platelet Count 144 T/CUMM (130-400); Red Cell Distribution Width 17.6 % (9.3-17.3); White Blood Count 16.6 T/CUMM (4-12)
[2018-06-08 15:41] LABS: Bilirubin,Total 0.5 MG/DL (0.2-1.0); Calcium 8.1 MG/DL (8.5-10.1); Osmolality,Calculated 287.8 MOS/KG (273-304); Potassium 4.3 MMOL/L (3.5-5.1); Total Protein 6.2 G/DL (6.4-8.3)
[2018-06-08] MEDS ORDERED: GLUCAGON 1 MG VIAL IM PRN (16:19)
[2018-06-08] MEDS ORDERED: ONDANSETRON 4 MG/2 ML VIAL IV PRN (16:19)
[2018-06-08] MEDS ORDERED: DEXTROSE 50% 25 GM/50 ML VIAL IV PRN (16:19)
[2018-06-08] MEDS ORDERED: ENOXAPARIN 30 MG/0.3 ML SYRINGE SUBCUT SCH (16:30)
[2018-06-08] MEDS ORDERED: GENTAMICIN INJ 80 MG in PREMIX 1 EACH IV ONE (17:00)
[2018-06-08] MEDS: PIPERACILLIN/TAZOBACTAM 3,375 MG in SODIUM CHLORIDE 0.9% 100 ML IV SCH (19:47)
[2018-06-08] MEDS: PANTOPRAZOLE 40 MG TABLET PO SCH (19:47)
[2018-06-08] MEDS: INSULIN LISPRO 100 UNIT/ML SUBCUT SCH ×2 (19:47→21:53)
[2018-06-08] MEDS ORDERED: HEPARIN 5,000 UNIT/1 ML VIAL IV ONE (20:14)
[2018-06-08 21:22] LABS: Lactic Acid 2.7 MMOL/L (0.4-2.0)
[2018-06-08 21:36] LABS: Folate 7.2 NG/ML (5.4-24.0); Vitamin B12 > 2000 PG/ML (211-911)
[2018-06-08] MEDS: HEPARIN DRIP 25,000 UNITS/500 ML PREMIX IV SCH (22:17)
[2018-06-09 01:04] LABS: Lactic Acid 4.2 MMOL/L (0.4-2.0)
[2018-06-09] MEDS ORDERED: SODIUM CHLORIDE 0.9% 500 ML IV ONE (02:12)
[2018-06-09 04:24] LABS: Basophils % 0.3 % (0.0-0.8); Eosinophils # 0.2 10*3/uL (0.0-0.87); Eosinophils % 1.1 % (0.00-10.9); Hematocrit 24.4 VOL% (35.7-47.0); Hemoglobin 7.7 GM/DL (12.0-16.0); Immature Granulocytes % 1.2 %; Immature Granulocytes Absolute 0.19 #; Lymphocytes # 2.5 10*3/uL (1.4-4.0); Lymphocytes % 16.2 % (21.3-54.2); Mean Corpuscular HGB Conc 31.6 GM/DL (32-36); Mean Corpuscular Hemoglobin 33 PG (27-34); Mean Corpuscular Volume 105.2 FL (87-102); Mean Platelet Volume 9.9 FL (9.6-12.0); Monocytes # 0.9 10*3/uL (0.11-0.8); Monocytes % 6.1 % (1.7-12.7); NRBC # 0.02 10*3/uL; Neutrophils # 11.4 10*3/uL (1.4-7.4); Neutrophils % 75.1 % (38.7-73.9); Platelet Count 114 T/CUMM (130-400); Red Blood Count 2.32 MC/CUMM (3.8-5.5); Red Cell Distribution Width 17.7 % (9.3-17.3); White Blood Count 15.2 T/CUMM (4-12)
[2018-06-09 04:55] LABS: Anisocytosis Slight; Band Neutrophils 5 % (0-10); Eosinophils 3 % (0-10); Lymphocytes 28 % (20-55); Macrocytosis 3+; Platelet Estimate Decreased; Segmented Neutrophils 60 % (50-85); Total Cells Counted 100
[2018-06-09 05:10] LABS: Albumin 0.8 G/DL (3.4-5.0); Bilirubin,Total 0.6 MG/DL (0.2-1.0); Calcium 7.9 MG/DL (8.5-10.1); Osmolality,Calculated 285.5 MOS/KG (273-304); Potassium 3.5 MMOL/L (3.5-5.1); Risk Ratio 2.79; Thyroid Stimulating Hormone 5.56 uIU/ml (0.358-3.74); Total Protein 5.2 G/DL (6.4-8.3); VLDL CHOLESTEROL 11.8 MG/DL
[2018-06-09] MEDS: PIPERACILLIN/TAZOBACTAM 3,375 MG in SODIUM CHLORIDE 0.9% 100 ML IV SCH ×2 (05:33→17:15)
[2018-06-09] MEDS: ACETAMINOPHEN 325 MG TABLET PO PRN (06:34)
[2018-06-09] MEDS: INSULIN LISPRO 100 UNIT/ML SUBCUT SCH ×4 (07:30→21:03)
[2018-06-09] MEDS: FOLIC ACID 1 MG TABLET PO SCH ×2 (09:59→21:05)
[2018-06-09] MEDS: PANTOPRAZOLE 40 MG TABLET PO SCH (09:59)
[2018-06-09 13:39] LABS: Hepatitis A Ab IgM Quant 0.12 Index; Hepatitis A Ab IgM Result Negative (Negative); Hepatitis B Core IgM Quant < 0.05 Index; Hepatitis B Core IgM Result Negative (Negative); Hepatitis B Surface Ag Quant 0.89 Index; Hepatitis B Surface Ag Result Negative (Negative); Hepatitis C Virus Ab Quant 0.35 Index; Hepatitis C Virus Ab Result Negative (Negative)
[2018-06-09] MEDS: HEPARIN DRIP 25,000 UNITS/500 ML PREMIX IV SCH (17:20)
[2018-06-09] MEDS ORDERED: GENTAMICIN INJ 80 MG in PREMIX 1 EACH IV ONE ×2 (18:00)
[2018-06-09] MEDS ORDERED: GENTAMICIN INJ 80 MG in PREMIX 1 EACH IV PRN (21:00)
[2018-06-10 04:30] LABS: Basophils % 0.2 % (0.0-0.8); Eosinophils # 0.2 10*3/uL (0.0-0.87); Eosinophils % 1.1 % (0.00-10.9); Hematocrit 22.8 VOL% (35.7-47.0); Hemoglobin 7.2 GM/DL (12.0-16.0); Immature Granulocytes % 1.2 %; Immature Granulocytes Absolute 0.19 #; Lymphocytes # 3.1 10*3/uL (1.4-4.0); Lymphocytes % 19.1 % (21.3-54.2); Mean Corpuscular HGB Conc 31.6 GM/DL (32-36); Mean Corpuscular Hemoglobin 33 PG (27-34); Mean Corpuscular Volume 103.2 FL (87-102); Mean Platelet Volume 10.2 FL (9.6-12.0); Monocytes # 1.1 10*3/uL (0.11-0.8); Monocytes % 7.1 % (1.7-12.7); NRBC # 0.03 10*3/uL; Neutrophils # 11.5 10*3/uL (1.4-7.4); Neutrophils % 71.3 % (38.7-73.9); Platelet Count 97 T/CUMM (130-400); Red Blood Count 2.21 MC/CUMM (3.8-5.5); Red Cell Distribution Width 18.5 % (9.3-17.3); White Blood Count 16.1 T/CUMM (4-12)
[2018-06-10 04:50] LABS: Calcium 7.2 MG/DL (8.5-10.1); Osmolality,Calculated 278.5 MOS/KG (273-304)
[2018-06-10 05:05] LABS: Anisocytosis 1+; Band Neutrophils 1 % (0-10); Hypochromasia 1+; Lymphocytes 18 % (20-55); Nucleated Red Blood Cells 1 (0-5); Segmented Neutrophils 78 % (50-85); Target Cells 1+; Total Cells Counted 100
[2018-06-10 05:06] LABS: Platelet Estimate Decreased
[2018-06-10] MEDS: PIPERACILLIN/TAZOBACTAM 3,375 MG in SODIUM CHLORIDE 0.9% 100 ML IV SCH ×2 (05:15→17:14)
[2018-06-10] MEDS: INSULIN LISPRO 100 UNIT/ML SUBCUT SCH ×4 (07:43→21:17)
[2018-06-10] MEDS: PANTOPRAZOLE 40 MG TABLET PO SCH (08:08)
[2018-06-10] MEDS: FOLIC ACID 1 MG TABLET PO SCH ×2 (08:08→21:17)
[2018-06-10] MEDS ORDERED: POTASSIUM CHLORIDE 20 MEQ TABLET PO ONE (08:31)
[2018-06-10] MEDS: HEPARIN DRIP 25,000 UNITS/500 ML PREMIX IV SCH (12:52)
[2018-06-11 02:22] LABS: Basophils % 0.2 % (0.0-0.8); Eosinophils # 0.3 10*3/uL (0.0-0.87); Eosinophils % 1.6 % (0.00-10.9); Hematocrit 22.7 VOL% (35.7-47.0); Immature Granulocytes Absolute 0.32 #; Lymphocytes # 3.3 10*3/uL (1.4-4.0); Lymphocytes % 20.2 % (21.3-54.2); Mean Corpuscular HGB Conc 30.8 GM/DL (32-36); Mean Corpuscular Hemoglobin 33 PG (27-34); Mean Corpuscular Volume 106.1 FL (87-102); Mean Platelet Volume 10.1 FL (9.6-12.0); Monocytes # 1.4 10*3/uL (0.11-0.8); Monocytes % 8.6 % (1.7-12.7); NRBC # 0.03 10*3/uL; Neutrophils # 10.9 10*3/uL (1.4-7.4); Neutrophils % 67.4 % (38.7-73.9); Platelet Count 99 T/CUMM (130-400); Red Blood Count 2.14 MC/CUMM (3.8-5.5); Red Cell Distribution Width 18.5 % (9.3-17.3); White Blood Count 16.2 T/CUMM (4-12)
[2018-06-11 02:36] LABS: Calcium 7.3 MG/DL (8.5-10.1); Osmolality,Calculated 280.7 MOS/KG (273-304); Potassium 3.8 MMOL/L (3.5-5.1)
[2018-06-11 03:04] LABS: Platelet Estimate Decreased
[2018-06-11 03:05] LABS: Anisocytosis 1+; Macrocytosis 3+
[2018-06-11] MEDS: PIPERACILLIN/TAZOBACTAM 3,375 MG in SODIUM CHLORIDE 0.9% 100 ML IV SCH (05:58)
[2018-06-11] MEDS: INSULIN LISPRO 100 UNIT/ML SUBCUT SCH ×4 (08:18→21:29)
[2018-06-11] MEDS: FOLIC ACID 1 MG TABLET PO SCH ×2 (08:27→21:29)
[2018-06-11] MEDS: PANTOPRAZOLE 40 MG TABLET PO SCH (08:27)
[2018-06-11] MEDS ORDERED: fentaNYL 50 MCG/HR PATCH TRANSDERM SCH (09:00)
[2018-06-11] MEDS ORDERED: oxyCODONE ER 10 MG TABLET PO PRN (10:08)
[2018-06-11] MEDS ORDERED: ACETAMINOPHEN 325 MG TABLET PO PRN (10:08)
[2018-06-11] MEDS ORDERED: guaiFENesin 200 MG/10 ML UDCUP PO PRN (10:08)
[2018-06-11] MEDS ORDERED: GLUCAGON 1 MG VIAL IM PRN (10:08)
[2018-06-11] MEDS: SEVELAMER CARBONATE 800 MG TABLET PO SCH ×2 (12:01→17:06)
[2018-06-11] MEDS: HEPARIN DRIP 25,000 UNITS/500 ML PREMIX IV SCH ×2 (12:40→21:47)
[2018-06-11] MEDS: ACETAMINOPHEN 325 MG TABLET PO PRN (15:36)
[2018-06-11] MEDS: MEROPENEM 1,000 MG in SYRINGE 1 EACH IV SCH (15:37)
[2018-06-11] MEDS: SILVER SULFADIAZINE 1% CREAM 400 GM JAR TOP SCH (16:55)
[2018-06-11] MEDS ORDERED: AMIKACIN 300 MG in SODIUM CHLORIDE 0.9% 100 ML IV ONE (17:00)
[2018-06-11] MEDS ORDERED: AMOXICILLIN/CLAV 875 MG TABLET PO SCH (21:00)
[2018-06-11] MEDS: DOCUSATE SODIUM 100 MG CAPSULE PO SCH (21:29)
[2018-06-11] MEDS: predniSONE 10 MG TABLET PO SCH (21:29)
[2018-06-12 03:04] LABS: Basophils % 0.1 % (0.0-0.8); Eosinophils # 0.2 10*3/uL (0.0-0.87); Hematocrit 22.8 VOL% (35.7-47.0); Hemoglobin 7.3 GM/DL (12.0-16.0); Immature Granulocytes % 1.2 %; Immature Granulocytes Absolute 0.17 #; Lymphocytes # 2.1 10*3/uL (1.4-4.0); Lymphocytes % 14.4 % (21.3-54.2); Mean Corpuscular Hemoglobin 34 PG (27-34); Mean Corpuscular Volume 104.6 FL (87-102); Mean Platelet Volume 10.1 FL (9.6-12.0); Monocytes # 1.2 10*3/uL (0.11-0.8); Monocytes % 8.4 % (1.7-12.7); NRBC # 0.02 10*3/uL; Neutrophils # 10.7 10*3/uL (1.4-7.4); Neutrophils % 74.9 % (38.7-73.9); Platelet Count 99 T/CUMM (130-400); Red Blood Count 2.18 MC/CUMM (3.8-5.5); Red Cell Distribution Width 18.6 % (9.3-17.3); White Blood Count 14.3 T/CUMM (4-12)
[2018-06-12 03:26] LABS: Albumin 0.7 G/DL (3.4-5.0); Bilirubin,Total 0.7 MG/DL (0.2-1.0); Calcium 7.7 MG/DL (8.5-10.1); Osmolality,Calculated 281.5 MOS/KG (273-304); Total Protein 4.7 G/DL (6.4-8.3)
[2018-06-12 04:10] LABS: Anisocytosis Slight; Band Neutrophils 6 % (0-10); Lymphocytes 19 % (20-55); Macrocytosis 3+; Nucleated Red Blood Cells 1 (0-5); Platelet Estimate Decreased; Segmented Neutrophils 73 % (50-85); Total Cells Counted 100
[2018-06-12] MEDS ORDERED: EPOETIN ALFA 2,000 UNIT/1 ML VIAL IV PRN (07:13)
[2018-06-12] MEDS: INSULIN LISPRO 100 UNIT/ML SUBCUT SCH ×4 (07:30→20:55)
[2018-06-12] MEDS: predniSONE 10 MG TABLET PO SCH ×2 (08:31→20:55)
[2018-06-12] MEDS: FOLIC ACID 1 MG TABLET PO SCH ×2 (08:31→20:55)
[2018-06-12] MEDS: FAMOTIDINE 20 MG TABLET PO SCH (08:31)
[2018-06-12] MEDS: DOCUSATE SODIUM 100 MG CAPSULE PO SCH ×2 (08:31→20:55)
[2018-06-12] MEDS: PANTOPRAZOLE 40 MG TABLET PO SCH (08:31)
[2018-06-12] MEDS: POLYETHYLENE GLYCOL POWDER 17 GM PACK PO SCH (08:32)
[2018-06-12] MEDS: SEVELAMER CARBONATE 800 MG TABLET PO SCH ×3 (08:32→16:23)
[2018-06-12] MEDS ORDERED: SODIUM CHLORIDE 0.9% IV PRN (09:00)
[2018-06-12] MEDS ORDERED: AMIKACIN IV PRN (09:00)
[2018-06-12] MEDS: SILVER SULFADIAZINE 1% CREAM 400 GM JAR TOP SCH (09:05)
[2018-06-12] MEDS ORDERED: SODIUM THIOSULFATE 12.5 GM/50 ML VIAL IV SCH (11:30)
[2018-06-12] MEDS: ACETIC ACID 0.25% IRRIGATION 1,000 ML BOTTLE IRRIG SCH ×2 (14:41→20:56)
[2018-06-12] MEDS: MEROPENEM 1,000 MG in SYRINGE 1 EACH IV SCH (15:40)
[2018-06-12] MEDS ORDERED: SODIUM CHLORIDE 0.9% IV ONE (16:00)
[2018-06-12] MEDS ORDERED: AMIKACIN IV ONE (16:00)
[2018-06-12] MEDS: APIXABAN 5 MG TABLET PO SCH (20:55)
[2018-06-13 05:52] LABS: Basophils % 0.1 % (0.0-0.8); Eosinophils % 0.2 % (0.00-10.9); Hematocrit 24.6 VOL% (35.7-47.0); Hemoglobin 7.6 GM/DL (12.0-16.0); Immature Granulocytes % 1.6 %; Immature Granulocytes Absolute 0.16 #; Lymphocytes # 1.6 10*3/uL (1.4-4.0); Lymphocytes % 15.6 % (21.3-54.2); Mean Corpuscular HGB Conc 30.9 GM/DL (32-36); Mean Corpuscular Hemoglobin 33 PG (27-34); Mean Corpuscular Volume 106.5 FL (87-102); Mean Platelet Volume 10.3 FL (9.6-12.0); Monocytes # 0.8 10*3/uL (0.11-0.8); NRBC # 0.02 10*3/uL; Neutrophils # 7.4 10*3/uL (1.4-7.4); Neutrophils % 74.5 % (38.7-73.9); Red Blood Count 2.31 MC/CUMM (3.8-5.5); Red Cell Distribution Width 18.8 % (9.3-17.3)
[2018-06-13 05:57] LABS: Platelet Count 98 T/CUMM (130-400); White Blood Count 9.9 T/CUMM (4-12)
[2018-06-13 06:07] LABS: Calcium 8.1 MG/DL (8.5-10.1); Potassium 4.3 MMOL/L (3.5-5.1)
[2018-06-13 06:14] LABS: Band Neutrophils 2 % (0-10); Hypochromasia 1+; Lymphocytes 9 % (20-55); Macrocytosis 1+; Ovalocytes Slight; Platelet Estimate Decreased; Segmented Neutrophils 85 % (50-85); Total Cells Counted 100
[2018-06-13] MEDS: INSULIN LISPRO 100 UNIT/ML SUBCUT SCH ×2 (08:10→13:37)
[2018-06-13] MEDS: FAMOTIDINE 20 MG TABLET PO SCH (10:23)
[2018-06-13] MEDS: PANTOPRAZOLE 40 MG TABLET PO SCH (10:23)
[2018-06-13] MEDS: POLYETHYLENE GLYCOL POWDER 17 GM PACK PO SCH (10:24)
[2018-06-13] MEDS: SEVELAMER CARBONATE 800 MG TABLET PO SCH ×2 (10:24→13:50)
[2018-06-13] MEDS: DOCUSATE SODIUM 100 MG CAPSULE PO SCH (10:24)
[2018-06-13] MEDS: predniSONE 10 MG TABLET PO SCH (10:24)
[2018-06-13] MEDS: APIXABAN 5 MG TABLET PO SCH (10:24)
[2018-06-13] MEDS: FOLIC ACID 1 MG TABLET PO SCH (10:25)
[2018-06-13 13:05] VITALS: BP 106/50
[2018-06-13] MEDS: ACETIC ACID 0.25% IRRIGATION 1,000 ML BOTTLE IRRIG SCH (14:26)
[2018-06-13] MEDS: SILVER SULFADIAZINE 1% CREAM 400 GM JAR TOP SCH (14:26)
[2018-06-13] MEDS: MEROPENEM 1,000 MG in SYRINGE 1 EACH IV SCH (15:32)
== END 2018-06-13 15:30 | DRG 606 ==
LOC: N.ED 13:45 → N.EDINP 16:19 → SUATTDRO 16:19 → N.3E 18:00
PROVIDERS: ADMIT Internal Medicine; ATTEND Hospitalist

== ENCOUNTER 2018-07-02 08:51 | Inpatient (IN) ==
[2018-07-02] MEDS ORDERED: NOREPINEPHRINE 4 MG/4 ML VIAL IV ONE (11:15)
[2018-07-02] MEDS ORDERED: ONDANSETRON 4 MG/2 ML VIAL IV PRN (11:26)
[2018-07-02] MEDS ORDERED: MEROPENEM 1,000 MG in SODIUM CHLORIDE 0.9% 100 ML IV SCH (11:30)
[2018-07-02] MEDS: NOREPINEPHRINE 8 MG in SODIUM CHLORIDE 0.9% 242 ML IV PRN (11:30)
[2018-07-02] MEDS ORDERED: ACETAMINOPHEN 325 MG TABLET PO PRN (11:36)
[2018-07-02] MEDS ORDERED: guaiFENesin 200 MG/10 ML UDCUP PO PRN (11:36)
[2018-07-02] MEDS ORDERED: EPOETIN ALFA 2,000 UNIT/1 ML VIAL IV PRN (11:36)
[2018-07-02] MEDS: MORPHINE 4 MG/1 ML VIAL IV PRN ×4 (11:58→20:20)
[2018-07-02] MEDS ORDERED: SODIUM THIOSULFATE 12.5 GM/50 ML VIAL IV SCH (12:00)
[2018-07-02] MEDS: SODIUM CHLORIDE 0.9% 1,000 ML IV SCH ×2 (12:07→21:38)
[2018-07-02] MEDS ORDERED: AMIKACIN 350 MG in SODIUM CHLORIDE 0.9% 100 ML IV PRN (14:16)
[2018-07-02] MEDS: SODIUM HYPOCHLORITE 0.25% IRRIG 473 ML BOTTLE TOP SCH (14:24)
[2018-07-02] MEDS ORDERED: AMIKACIN 700 MG in SODIUM CHLORIDE 0.9% 100 ML IV ONE (15:00)
[2018-07-02] MEDS: SEVELAMER CARBONATE 800 MG TABLET PO SCH ×2 (16:04→16:50)
[2018-07-02] MEDS: ENOXAPARIN 30 MG/0.3 ML SYRINGE SUBCUT SCH (16:12)
[2018-07-02] MEDS: predniSONE 10 MG TABLET PO SCH (20:20)
[2018-07-02] MEDS: DOCUSATE SODIUM 100 MG CAPSULE PO SCH (20:20)
[2018-07-02] MEDS: FOLIC ACID 1 MG TABLET PO SCH (20:20)
[2018-07-02] MEDS: APIXABAN 5 MG TABLET PO SCH (20:20)
[2018-07-02] MEDS: GABAPENTIN 100 MG CAPSULE PO SCH (20:20)
[2018-07-02] MEDS ORDERED: DEXTROSE 10% 1,000 ML IV SCH (20:30)
[2018-07-02] MEDS ORDERED: GLUCAGON 1 MG VIAL IM PRN (20:30)
[2018-07-02] MEDS: DEXTROSE 50% 25 GM/50 ML VIAL IV PRN ×2 (20:43→21:30)
[2018-07-02] MEDS: oxyCODONE ER 10 MG TABLET PO PRN (22:20)
[2018-07-03] MEDS: MORPHINE 4 MG/1 ML VIAL IV PRN ×2 (00:12→03:25)
[2018-07-03] MEDS: DEXTROSE 50% 25 GM/50 ML VIAL IV PRN ×3 (00:20→13:23)
[2018-07-03] MEDS: ACETIC ACID 0.25% IRRIGATION 1,000 ML BOTTLE IRRIG SCH ×3 (02:30→22:32)
[2018-07-03] MEDS: NOREPINEPHRINE 8 MG in SODIUM CHLORIDE 0.9% 242 ML IV PRN ×3 (03:22→19:49)
[2018-07-03 04:51] LABS: Blood Urea Nitrogen 74 MG/DL (7-18); Calcium 8.7 MG/DL (8.5-10.1); Glucose 84 MG/DL (74-106); Osmolality,Calculated 293.8 MOS/KG (273-304); Potassium 3.9 MMOL/L (3.5-5.1); Sodium 137 MMOL/L (136-145)
[2018-07-03 04:53] LABS: Lactic Acid 3.8 MMOL/L (0.4-2.0)
[2018-07-03] MEDS: SODIUM CHLORIDE 0.9% 1,000 ML IV SCH ×2 (06:01→14:53)
[2018-07-03] MEDS ORDERED: ASPIRIN CHEW 81 MG TABLET PO ONE (06:30)
[2018-07-03 06:39] LABS: Eosinophils # 0.2 10*3/uL (0.0-0.87); Eosinophils % 0.8 % (0.00-10.9); Hematocrit 33.1 VOL% (35.7-47.0); Hemoglobin 10.6 GM/DL (12.0-16.0); Immature Granulocytes % 1.4 %; Lymphocytes # 1.1 10*3/uL (1.4-4.0); Lymphocytes % 5.1 % (21.3-54.2); Mean Corpuscular Hemoglobin 34 PG (27-34); Mean Corpuscular Volume 105.1 FL (87-102); Mean Platelet Volume 11.8 FL (9.6-12.0); Monocytes # 0.7 10*3/uL (0.11-0.8); Monocytes % 3.1 % (1.7-12.7); NRBC # 0.04 10*3/uL; Neutrophils % 89.6 % (38.7-73.9); Red Blood Count 3.15 MC/CUMM (3.8-5.5); Red Cell Distribution Width 18.3 % (9.3-17.3); White Blood Count 21.2 T/CUMM (4-12)
[2018-07-03 06:41] LABS: Platelet Count 63 T/CUMM (130-400)
[2018-07-03 07:06] LABS: Band Neutrophils 20 % (0-10); Hypochromasia 1+; Lymphocytes 5 % (20-55); Platelet Estimate Decreased; Segmented Neutrophils 72 % (50-85); Total Cells Counted 100
[2018-07-03 07:06] LABS: INR 2.1
[2018-07-03 07:07] LABS: Macrocytosis Slight
[2018-07-03 07:42] LABS: PT Patient Result 21.6 SECS
[2018-07-03 08:45] LABS: CKMB % 9.5 %
[2018-07-03 08:46] LABS: Troponin I 1.96 NG/ML (0.00-0.045)
[2018-07-03] MEDS ORDERED: SILVER SULFADIAZINE 1% CREAM 25 GM TUBE TOP SCH (09:00)
[2018-07-03] MEDS: SODIUM HYPOCHLORITE 0.25% IRRIG 473 ML BOTTLE TOP SCH (11:21)
[2018-07-03] MEDS: ALBUMIN 25% 25 GM in PREMIX 1 EACH IV SCH ×2 (11:54→19:48)
[2018-07-03] MEDS: DOCUSATE SODIUM 100 MG CAPSULE PO SCH ×2 (12:22→22:13)
[2018-07-03] MEDS: SEVELAMER CARBONATE 800 MG TABLET PO SCH ×3 (12:22→20:09)
[2018-07-03] MEDS: POLYETHYLENE GLYCOL POWDER 17 GM PACK PO SCH (12:23)
[2018-07-03] MEDS: predniSONE 10 MG TABLET PO SCH ×2 (12:23→22:13)
[2018-07-03] MEDS: FOLIC ACID 1 MG TABLET PO SCH ×2 (12:23→22:13)
[2018-07-03] MEDS: FAMOTIDINE 20 MG TABLET PO SCH (12:23)
[2018-07-03] MEDS: APIXABAN 5 MG TABLET PO SCH ×2 (12:23→22:13)
[2018-07-03] MEDS: GABAPENTIN 100 MG CAPSULE PO SCH ×2 (12:23→22:13)
[2018-07-03 14:01] LABS: CKMB % 9.9 %
[2018-07-03] MEDS ORDERED: NALOXONE 0.4 MG/ML VIAL IV PRN (14:10)
[2018-07-03] MEDS: DEXTROSE 10% IV SCH (14:52)
[2018-07-03] MEDS: SODIUM BICARB IV SCH (14:52)
[2018-07-03] MEDS: MEROPENEM 1,000 MG in SODIUM CHLORIDE 0.9% 100 ML IV SCH (14:57)
[2018-07-03] MEDS: ENOXAPARIN 30 MG/0.3 ML SYRINGE SUBCUT SCH (14:57)
[2018-07-04] MEDS: NOREPINEPHRINE 8 MG in SODIUM CHLORIDE 0.9% 242 ML IV PRN ×3 (01:00→12:06)
[2018-07-04] MEDS: ALBUMIN 25% 25 GM in PREMIX 1 EACH IV SCH ×3 (02:34→20:51)
[2018-07-04] MEDS: DEXTROSE 50% 25 GM/50 ML VIAL IV PRN ×2 (03:16→08:20)
[2018-07-04] MEDS: MORPHINE 4 MG/1 ML VIAL IV PRN ×6 (03:27→23:03)
[2018-07-04 04:27] LABS: Eosinophils # 0.4 10*3/uL (0.0-0.87); Eosinophils % 1.4 % (0.00-10.9); Hematocrit 24.3 VOL% (35.7-47.0); Hemoglobin 7.6 GM/DL (12.0-16.0); Immature Granulocytes % 0.7 %; Immature Granulocytes Absolute 0.19 #; Lymphocytes # 1.6 10*3/uL (1.4-4.0); Lymphocytes % 5.5 % (21.3-54.2); Mean Corpuscular HGB Conc 31.3 GM/DL (32-36); Mean Corpuscular Hemoglobin 33 PG (27-34); Mean Corpuscular Volume 106.1 FL (87-102); Mean Platelet Volume 12.4 FL (9.6-12.0); Monocytes # 0.5 10*3/uL (0.11-0.8); Monocytes % 1.7 % (1.7-12.7); NRBC # 0.04 10*3/uL; Neutrophils # 25.7 10*3/uL (1.4-7.4); Neutrophils % 90.7 % (38.7-73.9); Red Blood Count 2.29 MC/CUMM (3.8-5.5); Red Cell Distribution Width 18.1 % (9.3-17.3); White Blood Count 28.4 T/CUMM (4-12)
[2018-07-04 04:35] LABS: Platelet Count 38 T/CUMM (130-400)
[2018-07-04 04:56] LABS: Calcium 8.5 MG/DL (8.5-10.1); Osmolality,Calculated 288.5 MOS/KG (273-304); Potassium 3.5 MMOL/L (3.5-5.1)
[2018-07-04 05:22] LABS: Band Neutrophils 11 % (0-10); Eosinophils 3 % (0-10); Hypochromasia 1+; Lymphocytes 1 % (20-55); Macrocytosis 1+; Platelet Estimate Decreased; Segmented Neutrophils 77 % (50-85); Total Cells Counted 100
[2018-07-04] MEDS ORDERED: AMIKACIN 350 MG in SODIUM CHLORIDE 0.9% 100 ML IV ONE (09:00)
[2018-07-04] MEDS: SEVELAMER CARBONATE 800 MG TABLET PO SCH ×3 (09:03→17:08)
[2018-07-04] MEDS: SODIUM BICARB IV SCH (11:36)
[2018-07-04] MEDS: DEXTROSE 10% IV SCH (11:36)
[2018-07-04] MEDS: SODIUM HYPOCHLORITE 0.25% IRRIG 473 ML BOTTLE TOP SCH (13:35)
[2018-07-04] MEDS: ACETIC ACID 0.25% IRRIGATION 1,000 ML BOTTLE IRRIG SCH ×2 (15:14→21:53)
[2018-07-04] MEDS: DOCUSATE SODIUM 100 MG CAPSULE PO SCH ×2 (15:14→20:52)
[2018-07-04] MEDS: FOLIC ACID 1 MG TABLET PO SCH ×2 (15:15→20:52)
[2018-07-04] MEDS: APIXABAN 5 MG TABLET PO SCH ×2 (15:15→20:52)
[2018-07-04] MEDS: predniSONE 10 MG TABLET PO SCH ×2 (15:16→20:52)
[2018-07-04] MEDS: GABAPENTIN 100 MG CAPSULE PO SCH ×2 (15:16→20:52)
[2018-07-04] MEDS: MEROPENEM 1,000 MG in SODIUM CHLORIDE 0.9% 100 ML IV SCH (15:24)
[2018-07-04] MEDS: FAMOTIDINE 20 MG TABLET PO SCH (17:31)
[2018-07-04] MEDS: POLYETHYLENE GLYCOL POWDER 17 GM PACK PO SCH (17:31)
[2018-07-05] MEDS: NOREPINEPHRINE 8 MG in SODIUM CHLORIDE 0.9% 242 ML IV PRN (00:18)
[2018-07-05 04:02] LABS: Basophils # 0.1 10*3/uL (0.0-0.2); Basophils % 0.5 % (0.0-0.8); Eosinophils # 0.1 10*3/uL (0.0-0.87); Eosinophils % 0.4 % (0.00-10.9); Hematocrit 21.6 VOL% (35.7-47.0); Hemoglobin 6.7 GM/DL (12.0-16.0); Immature Granulocytes Absolute 0.17 #; Lymphocytes # 0.8 10*3/uL (1.4-4.0); Mean Corpuscular Hemoglobin 33 PG (27-34); Mean Corpuscular Volume 106.4 FL (87-102); Monocytes # 0.6 10*3/uL (0.11-0.8); Monocytes % 3.3 % (1.7-12.7); NRBC # 0.04 10*3/uL; Neutrophils % 89.8 % (38.7-73.9); Red Blood Count 2.03 MC/CUMM (3.8-5.5); White Blood Count 16.7 T/CUMM (4-12)
[2018-07-05] MEDS: ALBUMIN 25% 25 GM in PREMIX 1 EACH IV SCH ×3 (04:09→20:51)
[2018-07-05] MEDS: MORPHINE 4 MG/1 ML VIAL IV PRN ×3 (04:10→22:56)
[2018-07-05 04:13] LABS: Platelet Count 19 T/CUMM (130-400)
[2018-07-05 04:32] LABS: Calcium 9.1 MG/DL (8.5-10.1); Osmolality,Calculated 286.7 MOS/KG (273-304); Potassium 3.4 MMOL/L (3.5-5.1)
[2018-07-05 04:56] LABS: Band Neutrophils 1 % (0-10); Hypochromasia 1+; Lymphocytes 3 % (20-55); Ovalocytes Slight; Platelet Estimate Decreased; Segmented Neutrophils 91 % (50-85); Total Cells Counted 100
[2018-07-05 04:57] LABS: Macrocytosis Slight
[2018-07-05] MEDS: SEVELAMER CARBONATE 800 MG TABLET PO SCH ×3 (08:14→19:52)
[2018-07-05] MEDS ORDERED: fentaNYL 50 MCG/HR PATCH TRANSDERM SCH (09:00)
[2018-07-05] MEDS: POLYETHYLENE GLYCOL POWDER 17 GM PACK PO SCH (10:18)
[2018-07-05] MEDS: GABAPENTIN 100 MG CAPSULE PO SCH ×2 (10:19→20:52)
[2018-07-05] MEDS: FAMOTIDINE 20 MG TABLET PO SCH (10:19)
[2018-07-05] MEDS: oxyCODONE ER 10 MG TABLET PO PRN (10:19)
[2018-07-05] MEDS: DOCUSATE SODIUM 100 MG CAPSULE PO SCH ×2 (10:20→20:52)
[2018-07-05] MEDS: ACETIC ACID 0.25% IRRIGATION 1,000 ML BOTTLE IRRIG SCH ×2 (10:20→20:52)
[2018-07-05] MEDS: predniSONE 10 MG TABLET PO SCH ×2 (10:20→20:52)
[2018-07-05] MEDS: FOLIC ACID 1 MG TABLET PO SCH ×2 (10:20→20:52)
[2018-07-05] MEDS: SODIUM HYPOCHLORITE 0.25% IRRIG 473 ML BOTTLE TOP SCH (10:20)
[2018-07-05] MEDS: DEXTROSE 10% IV SCH (12:50)
[2018-07-05] MEDS: SODIUM BICARB IV SCH (12:50)
[2018-07-05] MEDS: MEROPENEM 1,000 MG in SODIUM CHLORIDE 0.9% 100 ML IV SCH (14:21)
[2018-07-05] MEDS: APIXABAN 5 MG TABLET PO SCH ×2 (14:21→20:52)
[2018-07-05] MEDS ORDERED: HEPARIN 2,000 UNIT/2 ML VIAL IV PRN (20:06)
[2018-07-06] MEDS: SODIUM BICARB IV SCH ×2 (03:48→21:38)
[2018-07-06] MEDS: ALBUMIN 25% 25 GM in PREMIX 1 EACH IV SCH (03:48)
[2018-07-06] MEDS: DEXTROSE 10% IV SCH ×2 (03:48→21:38)
[2018-07-06] MEDS: MORPHINE 4 MG/1 ML VIAL IV PRN ×6 (04:05→23:47)
[2018-07-06] MEDS: APIXABAN 5 MG TABLET PO SCH ×2 (09:30→21:01)
[2018-07-06] MEDS: predniSONE 10 MG TABLET PO SCH (09:30)
[2018-07-06] MEDS: GABAPENTIN 100 MG CAPSULE PO SCH (09:30)
[2018-07-06] MEDS: FAMOTIDINE 20 MG TABLET PO SCH (09:30)
[2018-07-06] MEDS: FOLIC ACID 1 MG TABLET PO SCH (09:30)
[2018-07-06] MEDS: POLYETHYLENE GLYCOL POWDER 17 GM PACK PO SCH (09:30)
[2018-07-06] MEDS: DOCUSATE SODIUM 100 MG CAPSULE PO SCH (09:30)
[2018-07-06] MEDS: ACETIC ACID 0.25% IRRIGATION 1,000 ML BOTTLE IRRIG SCH ×2 (09:31→21:00)
[2018-07-06] MEDS: SODIUM HYPOCHLORITE 0.25% IRRIG 473 ML BOTTLE TOP SCH (09:31)
[2018-07-06] MEDS: SEVELAMER CARBONATE 800 MG TABLET PO SCH ×2 (09:31→14:36)
[2018-07-07] MEDS: MORPHINE 4 MG/1 ML VIAL IV PRN ×8 (01:40→18:07)
[2018-07-07] MEDS: SODIUM HYPOCHLORITE 0.25% IRRIG 473 ML BOTTLE TOP SCH (08:51)
[2018-07-07] MEDS: FAMOTIDINE 20 MG TABLET PO SCH (10:14)
[2018-07-07] MEDS: APIXABAN 5 MG TABLET PO SCH (10:14)
[2018-07-07] MEDS: ACETIC ACID 0.25% IRRIGATION 1,000 ML BOTTLE IRRIG SCH (10:18)
[2018-07-07 16:23] VITALS: BP 67/33
== END 2018-07-07 18:58 | disposition expired | DRG 871 ==
LOC: N.ICU 11:05 → SUATTDRO 11:05 → N.5E 07-06 16:25
PROVIDERS: ADMIT Internal Medicine; ATTEND Hospitalist